=== PATIENT | female | born 1985 | race Caucasian/White ===

== ENCOUNTER 2020-04-06 12:21 | Inpatient (IN) ==
[2020-04-06] MEDS ORDERED: OXYTOCIN 30 UNITS/500 ML BAG IV PRN (12:59)
[2020-04-06] MEDS ORDERED: LABETALOL HCL IV 5 MG/ML 20ML IV STA ×2 (13:00→16:26)
[2020-04-06] MEDS ORDERED: BETAMETH SOD PHOS/ACETATE IA 6 MG/ML IM STA (13:00)
[2020-04-06] MEDS ORDERED: MAG SULFATE 6GM BOLUS FROM BAG IV ONE (13:00)
[2020-04-06 13:24] LABS: Hematocrit (blood only) 31.3 % (37-47); Hemoglobin 10.8 g/dL (12.0-16.0); Mean Corpuscular Hemoglobin 30.9 pg (25-34); Mean Corpuscular Volume 89.7 fL (80-100); Platelet Count 158 K/uL (130-400); Red Blood Count 3.49 M/uL (4.2-5.4); White Blood Count 10.63 K/uL (4.8-10.8)
--- NOTE | 2020-04-06 13:25 | History & Physical Report ---
Date of Service April 06, 2020 Assessment & Plan (1) Preeclampsia: Patient is a 34 yo here for IOL secondary to preeclampsia -GBS -, Bloodtype O+ -Pitocin for contraction augmentation -Patient desires epidural; will consult anaesthesia when contractions become painful -Labetalol 20mg IV now -Magnesium Sulfate 6g IV now -Betamethasone 12mg IV now -Anticipate vaginal delivery. (2) Elderly primigravida, antepartum: History of Present Illness Chief Complaint: Hypertension Primary Care Provider: Ana Courtney DO Patient is a 34 at 36w 3d by LMP 07/26/19 who presents for IOL due to significant hypertension. Patients history has been complicated by preeclampsia for which she has been taking ASA 81mg. Patient currently denies any headache, RUQ pain, visual changes. She did not some ankle swelling over the weekend, but states it is relatively normal currently. She has noted movement. She denies any contractions, fluid loss, or vaginal blood loss. Labs -Blood type: O+ -Antibody screen: Negative -Rubella: Immune -VDRL/RPR: Nonreactive -Gonorrhea: Not detected -Chlamydia: Not detected -HIV: Negative -HbSAg: Negative -GBS: Negative -Glucose tolerance x2: 1 hour GTT 136, -Cell Free DNA Screening: low risk -Maternal Serum AFP: negative Allergies Allergy/AdvReac Type Severity Reaction Status Date / Time Sulfa (Sulfonamide Allergy Unknown RASH - Verified 04/06/20 11:29 Antibiotics) "SULFA DRUGS" Home Medications Home Medications Medication Instructions Recorded Confirmed Type PNV cmb#95-ferrous fumarate-FA 1 tab PO DAILY 04/06/20 04/06/20 History [] aspirin [Aspirin Low Dose] 81 mg PO DAILY 04/06/20 04/06/20 History famotidine 20 mg PO DAILY 04/06/20 04/06/20 History ferrous sulfate [iron] 325 mg PO DAILY 04/06/20 04/06/20 History Patient History Family History (Updated 09/13/19 @ 15:08 by Chana Chandler) Mother Diabetes Father Dyslipidemia Hypertension Social History (Updated 09/13/19 @ 15:23 by Chana Chandler) Preferred Language: Occitan Communication Ability: Effective Digital Developer Required: No Beliefs That Will Affect Care: None marital status: marital status details: William Dhaliwal (36) [phone] Current Living Situation: Spouse Current Living Situation Comment: lives with spouse and dog Other Information That Helps Us Care for You: No Feels Safe at Home: Yes Safety Concerns: Feels Safe At This Time Smoking Status: Never smoker Second Hand Exposure: No ; Hx Alcohol Use: Yes (rarely) Hx Substance Use: No Review of Systems no fever, no chills and no weakness no worsening vision no dizziness no cough and no dyspnea no chest pain, no dyspnea and no palpitations no abdominal pain, no nausea, no vomiting, no constipation and no diarrhea/loose stools no dysuria and no hematuria no headache(s) Physical Exam Constitutional: WD/WN, vitals as above Eyes: PERRL, conjunctivae normal, anicteric sclerae ENMT: external ear and nose normal, oropharynx normal Neck: normal visual inspection Respiratory: normal respiratory effort, lungs clear to auscultation Cardiovascular: Rate/Rhythm: regular rate and regular rhythm Heart Sounds: normal S1 and normal S2; no murmur Extremities: + edema (trace) Gastrointestinal (Abdomen): Inspection/Auscultation: + abdomen distended (Gravid) and normal bowel sounds Percussion/Palpation: abdomen soft; abdomen nontender (NO RUQ pain) Neurologic: patellar DTR's 2+ bilat, sensation intact Psychiatric: A+Ox3, euthymic affect Genitourinary: OB Exam Abdomen: + fundal height (Term), + heart tones, + vertex and + estimated weight (7 lbs) Cervical exam conducted by Dr. Blue. Results & Data Vital Signs (Past 12 Hours) Vital Signs Pulse BP 04/06/20 13:03 86 178/95 H 04/06/20 12:53 84 181/96 H 04/06/20 12:44 90 184/98 H Code Status & VTE Plan VTE Prophylaxis Plan VTE Prophylaxis will be ordered: No Reason for no VTE drug order: Contraindicated Supervising Physician Co-Signing Physician Notes Patient seen and evaluated and agree with the above findings and plan. Admitted for IOL for Preeclampsia with severe features. She is asymptomatic at this time but has severe range BPs which we are treating with IV labetalol. Discussed the recommendation for MgSO4 for prevention of eclampsia. Discussed BMZ for . Patient agreeable to plan. Resident Activity Tracking Resident Involvement: Resident Care Provided Care Provided: OB Delivery
[2020-04-06 13:26] LABS: Mean Corpuscular Hgb Conc 34.5 g/dL (32-36)
[2020-04-06] MEDS: LACTATED RINGER'S 1,000 ML IV PRN ×2 (13:35→23:15)
[2020-04-06 13:36] LABS: Partial Thromboplastin Ratio 0.9; Partial Thromboplastin Time 24.2 Seconds (21.0-31.0); Prothrombin Time 10.1 Seconds (9.0-12.0)
[2020-04-06 13:41] LABS: Est GFR (African American) 132.4; Est GFR (Non-African American) 114.2
[2020-04-06 13:47] LABS: Alanine Aminotransferase 15 U/L (12-78); Aspartate Aminotransferase 11 U/L (15-37)
[2020-04-06] MEDS: OXYTOCIN 30 UNITS/500 ML BAG IV PRN (14:34)
[2020-04-06] MEDS: MAGNESIUM SULFATE / WTR 40 GM/1,000 ML BAG IV SCH (14:43)
[2020-04-06] MEDS ORDERED: IBUPROFEN 600 MG TAB PO PRN (14:48)
[2020-04-06] MEDS ORDERED: ACETAMINOPHEN 325 MG TAB PO PRN (17:15)
[2020-04-06 20:10] LABS: Hemoglobin 11.3 g/dL (12.0-16.0); Mean Corpuscular Hgb Conc 34.2 g/dL (32-36); Mean Corpuscular Volume 90.4 fL (80-100); Mean Platelet Volume 11.3 fL (7.4-10.4); Platelet Count 178 K/uL (130-400); RDW Coefficient of Variation 14.1 % (11.5-14.5); RDW Standard Deviation 46.8 fL (36.4-46.3); Red Blood Count 3.65 M/uL (4.2-5.4); White Blood Count 14.65 K/uL (4.8-10.8)
[2020-04-06 20:40] LABS: Albumin Globulin Ratio 0.7 (0.9-2); Albumin Level 2.8 gm/dl (3.4-5.0); Bilirubin,Total 0.3 mg/dl (0.2-1); Calcium 8.1 mg/dl (8.5-10.1); Creatinine Clr Calc Pharmacy 209.7 ml/min; Est GFR (African American) 131.1; Est GFR (Non-African American) 113.1; Globulin 3.9 gm/dl (2.5-4.0); Magnesium 5.3 mg/dl (1.8-2.4); Potassium 3.5 mmol/L (3.5-5.1); Total Protein 6.7 gm/dl (6.4-8.2)
[2020-04-06] MEDS: LABETALOL HCL 100 MG TAB PO SCH (21:09)
[2020-04-06] MEDS ORDERED: ONDANSETRON INJ 2 MG/ML 2 ML VIAL ONE (23:10)
[2020-04-07] MEDS ORDERED: CALCIUM CARBONATE 500 MG CHEWABLE TAB ONE (01:27)
[2020-04-07] MEDS ORDERED: BUTORPHANOL TARTRATE 1 MG/ML VIAL IV PRN (04:53)
[2020-04-07] MEDS ORDERED: BUTORPHANOL TARTRATE 1 MG/ML VIAL ONE (04:56)
[2020-04-07 06:00] LABS: Hematocrit (blood only) 31.1 % (37-47); Hemoglobin 10.8 g/dL (12.0-16.0); Mean Corpuscular Hemoglobin 31.6 pg (25-34); Mean Corpuscular Volume 90.9 fL (80-100); Mean Platelet Volume 11.1 fL (7.4-10.4); Platelet Count 177 K/uL (130-400); RDW Coefficient of Variation 14.3 % (11.5-14.5); Red Blood Count 3.42 M/uL (4.2-5.4); White Blood Count 14.42 K/uL (4.8-10.8)
[2020-04-07 06:05] LABS: Mean Corpuscular Hgb Conc 34.7 g/dL (32-36)
[2020-04-07 06:20] LABS: Albumin Globulin Ratio 0.8 (0.9-2); Albumin Level 2.8 gm/dl (3.4-5.0); BUN Creatinine Ratio 12.9 (10-20); Bilirubin,Total 0.4 mg/dl (0.2-1); Calcium 7.2 mg/dl (8.5-10.1); Creatinine Clr Calc Pharmacy 192.5 ml/min; Est GFR (African American) 122.8; Globulin 3.7 gm/dl (2.5-4.0); Magnesium Therapeutic L&D Only 6.6 mg/dL (4.0-8.0); Potassium 3.6 mmol/L (3.5-5.1); Total Protein 6.5 gm/dl (6.4-8.2)
--- NOTE | 2020-04-07 06:32 | Labor Progress Brief Note ---
Date of Service April 07, 2020 Subjective Reason For Note: Routine Evaluation Doing well denies PIH symptoms. Mg running Assessment & Plan (1) Preeclampsia: 34yo at 36.3 weeks GA. IOL for preeclampsia with severe features 1. Fetus: Cat 1 2. Labor: Progressing. Continue Pitocin 3. GBS neg 4. PIH: Continue Mg. No signs of worsening disease. BPs mild range. Mg level in recommended range. 5. GDM: Diet controlled. BGs ~130s (2) Gestational diabetes: (3) Elderly primigravida, antepartum: Physical Exam Genitourinary: OB Exam Abdomen: + vertex Manual OB Exam: + cervical dilation 1 cm, + cervical effacement 70% and + station -2 OB Exam Monitor Tracing: + external FHT monitor used, + external uterine monitor used, + category I and + normal FHT variability; no early decelerations present, no late decelerations present and no variable decelerations Results & Data Vital Signs (Past 12 Hours) Vital Signs Temp Pulse Resp BP Pulse Ox 04/07/20 06:23 77 93 04/07/20 06:21 76 138/71 04/07/20 06:18 74 92 04/07/20 06:13 76 91 04/07/20 06:08 69 89 L 04/07/20 06:06 76 94 04/07/20 06:03 73 91 04/07/20 06:00 72 94 04/07/20 05:58 77 89 L 04/07/20 05:53 81 95 04/07/20 05:52 81 18 144/79 H 04/07/20 05:50 83 93 04/07/20 05:48 87 97 04/07/20 05:45 72 93 04/07/20 05:43 75 90 04/07/20 05:39 74 93 04/07/20 05:38 91 H 97 04/07/20 05:33 71 90 04/07/20 05:31 68 92 04/07/20 05:28 73 92 04/07/20 05:24 72 93 04/07/20 05:23 74 91 04/07/20 05:21 67 128/72 04/07/20 05:18 71 93 04/07/20 05:13 75 90 04/07/20 05:08 73 92 04/07/20 05:07 77 94 04/07/20 05:03 76 92 04/07/20 04:59 88 94 04/07/20 04:58 88 97 04/07/20 04:53 94 H 97 04/07/20 04:51 97 H 18 147/76 H 04/07/20 04:48 96 H 96 04/07/20 04:43 94 H 95 04/07/20 04:39 80 94 04/07/20 04:38 79 94 04/07/20 04:33 81 94 04/07/20 04:28 81 95 04/07/20 04:23 78 93 04/07/20 04:22 78 128/84 04/07/20 04:21 77 94 04/07/20 04:18 83 96 04/07/20 04:15 81 93 04/07/20 04:13 81 94 04/07/20 04:08 85 95 04/07/20 04:03 85 95 04/07/20 04:01 85 94 04/07/20 03:58 89 97 04/07/20 03:53 86 18 138/78 96 04/07/20 03:48 86 96 04/07/20 03:43 90 97 04/07/20 03:38 93 H 96 04/07/20 03:33 97 H 97 04/07/20 03:28 102 H 98 04/07/20 03:23 97 H 97 04/07/20 03:21 80 132/78 04/07/20 03:19 79 94 04/07/20 03:18 79 97 04/07/20 03:14 77 93 04/07/20 03:13 79 90 04/07/20 03:08 80 94 04/07/20 03:07 77 92 04/07/20 03:03 79 93 04/07/20 03:02 80 94 04/07/20 02:58 81 93 04/07/20 02:55 78 93 04/07/20 02:53 84 93 04/07/20 02:51 82 129/80 04/07/20 02:50 87 94 04/07/20 02:48 88 96 04/07/20 02:45 36.5 C 18 04/07/20 02:43 90 97 04/07/20 02:38 97 H 98 04/07/20 02:33 88 94 04/07/20 02:29 79 93 04/07/20 02:28 80 93 04/07/20 02:23 77 93 04/07/20 02:22 89 97 04/07/20 02:21 77 126/75 04/07/20 02:18 78 94 04/07/20 02:17 76 95 04/07/20 01:52 74 18 127/70 04/07/20 01:22 81 123/76 04/07/20 00:52 83 18 134/76 04/07/20 00:22 77 105/55 L 04/06/20 23:52 82 18 112/58 L 04/06/20 23:21 82 131/77 04/06/20 23:13 83 136/77 04/06/20 22:51 36.6 C 84 18 137/79 04/06/20 22:22 90 127/77 04/06/20 21:52 83 18 136/82 04/06/20 21:21 84 137/76 04/06/20 20:51 85 18 139/82 04/06/20 20:22 88 141/82 H 04/06/20 19:51 95 H 20 151/91 H 04/06/20 19:21 93 H 143/89 H 04/06/20 18:51 36.6 C 83 18 142/77 H Coding Level of Care Code None Diagnoses Preeclampsia O14.90 Gestational diabetes O24.419 Elderly primigravida, antepartum O09.519
[2020-04-07] MEDS: MAGNESIUM SULFATE / WTR 40 GM/1,000 ML BAG IV SCH (06:50)
--- NOTE | 2020-04-07 08:04 | Labor Progress Brief Note ---
Date of Service April 07, 2020 Subjective Reason For Note: Routine Evaluation Denies PIH symptoms Assessment & Plan (1) Preeclampsia: 34yo at 36.3 weeks GA. IOL for preeclampsia with severe features 1. Fetus: Cat 1 2. Labor: Progressing. Will stop Pitocin and allow patient to have breakfast. Will restart per protocol 3. GBS neg 4. PIH: Continue Mg. No signs of worsening disease. BPs mild range. Mg level pending 5. GDM: Diet controlled. BGs ~130s (2) Gestational diabetes: (3) Elderly primigravida, antepartum: Physical Exam Neurologic: patellar DTR's 2+ bilat, sensation intact Genitourinary: OB Exam Abdomen: + vertex Manual OB Exam: + cervical dilation (1.5), + cervical effacement 80%, + station -2 and + amniotic fluid clear OB Exam Monitor Tracing: + external FHT monitor used, + external uterine monitor used, + category I and + normal FHT variability; no early decelerations present, no late decelerations present and no variable decelerations Results & Data Vital Signs (Past 12 Hours) Vital Signs Temp Pulse Resp BP Pulse Ox 04/07/20 07:53 89 96 04/07/20 07:51 81 144/81 H 04/07/20 07:48 85 96 04/07/20 07:43 87 97 04/07/20 07:38 87 96 04/07/20 07:36 86 94 04/07/20 07:33 91 H 97 04/07/20 07:28 95 H 97 04/07/20 07:24 82 94 04/07/20 07:23 81 95 04/07/20 07:21 77 150/83 H 04/07/20 07:18 88 95 04/07/20 07:13 90 97 04/07/20 07:12 87 94 04/07/20 07:08 89 97 04/07/20 07:03 89 96 04/07/20 07:00 79 93 04/07/20 06:58 86 96 04/07/20 06:55 80 94 04/07/20 06:53 82 96 04/07/20 06:51 84 134/80 04/07/20 06:50 80 93 04/07/20 06:48 89 96 04/07/20 06:43 74 92 04/07/20 06:42 73 92 04/07/20 06:38 74 89 L 04/07/20 06:34 71 91 04/07/20 06:33 79 96 04/07/20 06:28 83 96 04/07/20 06:23 77 93 04/07/20 06:21 76 138/71 04/07/20 06:18 74 92 04/07/20 06:13 76 91 04/07/20 06:08 69 89 L 04/07/20 06:06 76 94 04/07/20 06:03 73 91 04/07/20 06:00 72 94 04/07/20 05:58 77 89 L 04/07/20 05:53 81 95 04/07/20 05:52 81 18 144/79 H 04/07/20 05:50 83 93 04/07/20 05:48 87 97 04/07/20 05:45 72 93 04/07/20 05:43 75 90 04/07/20 05:39 74 93 04/07/20 05:38 91 H 97 04/07/20 05:33 71 90 04/07/20 05:31 68 92 04/07/20 05:28 73 92 04/07/20 05:24 72 93 04/07/20 05:23 74 91 04/07/20 05:21 67 128/72 04/07/20 05:18 71 93 04/07/20 05:13 75 90 04/07/20 05:08 73 92 04/07/20 05:07 77 94 04/07/20 05:03 76 92 04/07/20 04:59 88 94 04/07/20 04:58 88 97 04/07/20 04:53 94 H 97 04/07/20 04:51 97 H 18 147/76 H 04/07/20 04:48 96 H 96 04/07/20 04:43 94 H 95 04/07/20 04:39 80 94 04/07/20 04:38 79 94 04/07/20 04:33 81 94 04/07/20 04:28 81 95 04/07/20 04:23 78 93 04/07/20 04:22 78 128/84 04/07/20 04:21 77 94 04/07/20 04:18 83 96 04/07/20 04:15 81 93 04/07/20 04:13 81 94 04/07/20 04:08 85 95 04/07/20 04:03 85 95 04/07/20 04:01 85 94 04/07/20 03:58 89 97 04/07/20 03:53 86 18 138/78 96 04/07/20 03:48 86 96 04/07/20 03:43 90 97 04/07/20 03:38 93 H 96 04/07/20 03:33 97 H 97 04/07/20 03:28 102 H 98 04/07/20 03:23 97 H 97 04/07/20 03:21 80 132/78 04/07/20 03:19 79 94 04/07/20 03:18 79 97 04/07/20 03:14 77 93 04/07/20 03:13 79 90 04/07/20 03:08 80 94 04/07/20 03:07 77 92 04/07/20 03:03 79 93 04/07/20 03:02 80 94 04/07/20 02:58 81 93 04/07/20 02:55 78 93 04/07/20 02:53 84 93 04/07/20 02:51 82 129/80 04/07/20 02:50 87 94 04/07/20 02:48 88 96 04/07/20 02:45 36.5 C 18 04/07/20 02:43 90 97 04/07/20 02:38 97 H 98 04/07/20 02:33 88 94 04/07/20 02:29 79 93 04/07/20 02:28 80 93 04/07/20 02:23 77 93 04/07/20 02:22 89 97 04/07/20 02:21 77 126/75 04/07/20 02:18 78 94 04/07/20 02:17 76 95 04/07/20 01:52 74 18 127/70 04/07/20 01:22 81 123/76 04/07/20 00:52 83 18 134/76 04/07/20 00:22 77 105/55 L 04/06/20 23:52 82 18 112/58 L 04/06/20 23:21 82 131/77 04/06/20 23:13 83 136/77 04/06/20 22:51 36.6 C 84 18 137/79 06/08/20 22:22 90 127/77 04/06/20 21:52 83 18 136/82 04/06/20 21:21 84 137/76 04/06/20 20:51 85 18 139/82 04/06/20 20:22 88 141/82 H Coding Level of Care Code None Diagnoses Preeclampsia O14.90 Gestational diabetes O24.419 Elderly primigravida, antepartum O09.519
[2020-04-07] MEDS: FAMOTIDINE 20 MG in SYRINGE 3 ML IV SCH ×2 (08:37→22:42)
[2020-04-07] MEDS: LABETALOL HCL 100 MG TAB PO SCH ×2 (08:37→22:41)
[2020-04-07] MEDS: ONDANSETRON INJ 2 MG/ML 2 ML VIAL IV PRN (09:34)
[2020-04-07] MEDS: CALCIUM CARBONATE 500 MG CHEWABLE TAB PO PRN (09:34)
[2020-04-07] MEDS ORDERED: miSOPROStoL 50 MCG TAB PO STA (10:30)
[2020-04-07] MEDS: LACTATED RINGER'S 1,000 ML IV PRN ×3 (12:06→23:22)
--- NOTE | 2020-04-07 12:06 | Obstetrical Progress Note ---
Date of Service April 07, 2020 Assessment & Plan (1) Preeclampsia: IOL - [place] remains unfavorable, Pit has seemed minimally effective. Nguyen was not previously tolerated by patient who is now ruptured anyway, but toco now allows for cytotec. Ordered this morning. Reassess after 4 hr to see if ready for retrial of pitocin. PreE - severe. Continue Mag, seizure precautions. DTR 2+ currently and mag levels being checked. GDM - Was not on insulin. Subjective Delayed entry due to other patient care responsibilities. Feeling mild contractions. No LINARES, RUQ pain or vis chng. Fatigue c/w Magnesium infusion. Good FM. LOF clear. No VB. Will want epiural eventually. Physical Exam Physical Exam: FHT Cat 1 [place] Q9 Pit @ 4 (has previously reached 30 mu/min x2 and was stopped for breakfast break per Dr. Blue) Cvx 1.5/90/-2 LOF clear Results & Data Vital Signs (Past 12 Hours) Vital Signs Temp Pulse Resp BP Pulse Ox 04/07/20 11:45 95 H 96 04/07/20 11:44 90 157/80 H 04/07/20 11:40 98.1 F 88 19 92 04/07/20 11:35 80 92 04/07/20 11:30 96 H 97 04/07/20 11:25 92 H 96 04/07/20 11:20 83 91 04/07/20 11:19 81 88 L 04/07/20 11:15 85 91 04/07/20 11:12 82 91 04/07/20 11:10 87 97 04/07/20 11:05 77 94 04/07/20 11:03 84 89 L 04/07/20 11:00 89 96 04/07/20 10:55 84 91 04/07/20 10:51 87 91 04/07/20 10:50 88 94 04/07/20 10:45 94 H 98 04/07/20 10:44 84 146/85 H 04/07/20 10:40 83 95 04/07/20 10:35 89 96 04/07/20 10:30 98 H 97 04/07/20 10:25 95 H 97 04/07/20 10:20 94 H 96 04/07/20 10:15 88 97 04/07/20 10:10 89 97 04/07/20 10:05 89 94 06/09/20 10:04 89 94 04/07/20 10:00 80 96 04/07/20 09:58 79 92 04/07/20 09:55 87 95 04/07/20 09:53 81 94 04/07/20 09:50 88 97 04/07/20 09:45 89 98 04/07/20 09:44 93 H 144/80 H 04/07/20 09:40 90 98 04/07/20 09:30 98.1 F 16 04/07/20 08:43 94 H 150/80 H 04/07/20 07:53 89 96 04/07/20 07:51 81 144/81 H 04/07/20 07:48 85 96 04/07/20 07:43 87 97 04/07/20 07:38 87 96 04/07/20 07:36 86 94 04/07/20 07:33 91 H 97 04/07/20 07:28 95 H 97 04/07/20 07:24 82 94 04/07/20 07:23 81 95 04/07/20 07:21 77 150/83 H 04/07/20 07:18 88 95 04/07/20 07:13 90 97 04/07/20 07:12 87 94 04/07/20 07:08 89 97 04/07/20 07:03 89 96 04/07/20 07:00 79 93 04/07/20 06:58 86 96 04/07/20 06:55 80 94 04/07/20 06:53 82 96 04/07/20 06:51 84 134/80 04/07/20 06:50 80 93 04/07/20 06:48 89 96 04/07/20 06:43 74 92 04/07/20 06:42 73 92 04/07/20 06:38 74 89 L 04/07/20 06:34 71 91 04/07/20 06:33 79 96 04/07/20 06:28 83 96 04/07/20 06:23 77 93 04/07/20 06:21 76 138/71 04/07/20 06:18 74 92 04/07/20 06:13 76 91 04/07/20 06:08 69 89 L 04/07/20 06:06 76 94 04/07/20 06:03 73 91 04/07/20 06:00 72 94 04/07/20 05:58 77 89 L 04/07/20 05:53 81 95 04/07/20 05:52 81 18 144/79 H 04/07/20 05:50 83 93 04/07/20 05:48 87 97 04/07/20 05:45 72 93 04/07/20 05:43 75 90 04/07/20 05:39 74 93 04/07/20 05:38 91 H 97 04/07/20 05:33 71 90 04/07/20 05:31 68 92 04/07/20 05:28 73 92 04/07/20 05:24 72 93 04/07/20 05:23 74 91 04/07/20 05:21 67 128/72 04/07/20 05:18 71 93 04/07/20 05:13 75 90 04/07/20 05:08 73 92 04/07/20 05:07 77 94 04/07/20 05:03 76 92 04/07/20 04:59 88 94 04/07/20 04:58 88 97 04/07/20 04:53 94 H 97 04/07/20 04:51 97 H 18 147/76 H 04/07/20 04:48 96 H 96 04/07/20 04:43 94 H 95 04/07/20 04:39 80 94 04/07/20 04:38 79 94 04/07/20 04:33 81 94 04/07/20 04:28 81 95 04/07/20 04:23 78 93 04/07/20 04:22 78 128/84 04/07/20 04:21 77 94 04/07/20 04:18 83 96 04/07/20 04:15 81 93 04/07/20 04:13 81 94 04/07/20 04:08 85 95 04/07/20 04:03 85 95 04/07/20 04:01 85 94 04/07/20 03:58 89 97 04/07/20 03:53 86 18 138/78 96 04/07/20 03:48 86 96 04/07/20 03:43 90 97 04/07/20 03:38 93 H 96 04/07/20 03:33 97 H 97 04/07/20 03:28 102 H 98 04/07/20 03:23 97 H 97 04/07/20 03:21 80 132/78 04/07/20 03:19 79 94 04/07/20 03:18 79 97 04/07/20 03:14 77 93 04/07/20 03:13 79 90 04/07/20 03:08 80 94 04/07/20 03:07 77 92 04/07/20 03:03 79 93 04/07/20 03:02 80 94 04/07/20 02:58 81 93 04/07/20 02:55 78 93 04/07/20 02:53 84 93 04/07/20 02:51 82 129/80 04/07/20 02:50 87 94 04/07/20 02:48 88 96 04/07/20 02:45 97.7 F 18 04/07/20 02:43 90 97 04/07/20 02:38 97 H 98 04/07/20 02:33 88 94 04/07/20 02:29 79 93 04/07/20 02:28 80 93 04/07/20 02:23 77 93 04/07/20 02:22 89 97 04/07/20 02:21 77 126/75 04/07/20 02:18 78 94 04/07/20 02:17 76 95 04/07/20 01:52 74 18 127/70 04/07/20 01:22 81 123/76 04/07/20 00:52 83 18 134/76 04/07/20 00:22 77 105/55 L PG Care Time/CCT Total # of Minutes Spent Total Time Spent with Patient: Total time spent is greater than 50% in coordination of care (as documented) at patient's floor/unit and/or counseling patient: Coding Level of Care Code None Diagnoses Preeclampsia O14.90
[2020-04-07] MEDS: OXYTOCIN 30 UNITS/500 ML BAG IV PRN (16:03)
[2020-04-07] MEDS ORDERED: ePHEDrine sulfate 50 MG/ML AMP ONE (16:33)
[2020-04-07] MEDS ORDERED: fentaNYL citrate 100 MCG/2 ML VIAL ONE (16:34)
[2020-04-07] MEDS ORDERED: BUPIVACAINE 0.25% 30 ML VIAL ONE (16:34)
[2020-04-07] MEDS ORDERED: fentaNYL 2MCG/ML ROPIV 1.25MG/ML 100 ML BAG EPI ONE (16:35)
[2020-04-07 17:23] LABS: Hematocrit (blood only) 30.2 % (37-47); Hemoglobin 10.1 g/dL (12.0-16.0); Mean Corpuscular Hemoglobin 30.4 pg (25-34); Mean Corpuscular Hgb Conc 33.4 g/dL (32-36); Mean Platelet Volume 11.2 fL (7.4-10.4); Platelet Count 185 K/uL (130-400); RDW Coefficient of Variation 14.2 % (11.5-14.5); RDW Standard Deviation 47.1 fL (36.4-46.3); Red Blood Count 3.32 M/uL (4.2-5.4); White Blood Count 18.28 K/uL (4.8-10.8)
[2020-04-07 17:59] LABS: Albumin Globulin Ratio 0.8 (0.9-2); Albumin Level 2.7 gm/dl (3.4-5.0); Bilirubin,Total 0.4 mg/dl (0.2-1); Calcium 7.1 mg/dl (8.5-10.1); Creatinine Clr Calc Pharmacy 113.4 ml/min; Est GFR (African American) 120.8; Est GFR (Non-African American) 104.2; Globulin 3.4 gm/dl (2.5-4.0); Magnesium Therapeutic L&D Only 7.5 mg/dL (4.0-8.0); Potassium 3.4 mmol/L (3.5-5.1); Total Protein 6.1 gm/dl (6.4-8.2)
[2020-04-07] MEDS ORDERED: DiphenhydrAMINE HCL 50 MG/ML VIAL IV PRN (18:24)
[2020-04-07] MEDS ORDERED: ONDANSETRON INJ 2 MG/ML 2 ML VIAL IV PRN (18:24)
[2020-04-07] MEDS ORDERED: NALOXONE HCL 0.4 MG/1 ML VIAL/CARP IV PRN (18:24)
[2020-04-07] MEDS ORDERED: ePHEDrine sulfate 50 MG/ML AMP IV PRN (18:24)
[2020-04-07] MEDS ORDERED: NALOXONE HCL 1 MG in SODIUM CHLORIDE 0.9% 1000ML 1,000 ML IV PRN (18:24)
[2020-04-07] MEDS ORDERED: NALBUPHINE HCL INJ 10 MG/ML AMP IV PRN (18:24)
--- NOTE | 2020-04-07 18:24 | Anesthesiology Consultation ---
Date of Service April 07, 2020 Assessment & Plan Chart Review Chart Review: Acceptable Risk for Surgery and Patient NOT seen in Pre Admission Testing Consults Requested none ASA ASA2 Proposed Anesthesia Anesthesia Type: Labor Epidural Risk / Benefits Reviewed With: PT / POA / Parent / Guardian, Accepts Plan and Informed Consent Obtained History Height/Weight Height: 5 ft 2 in Weight: 95.708 kg Allergies Allergy/AdvReac Type Severity Reaction Status Date / Time Sulfa (Sulfonamide Allergy Unknown RASH - Verified 04/06/20 11:29 Antibiotics) "SULFA DRUGS" Medications Home Medications Medication Instructions Recorded Confirmed Last Taken PNV cmb#95-ferrous fumarate-FA 1 tab PO DAILY 04/06/20 04/06/20 04/05/20 21:00 [] aspirin [Aspirin Low Dose] 81 mg PO DAILY 04/06/20 04/06/20 04/05/20 21:00 famotidine 20 mg PO DAILY 04/06/20 04/06/20 Unknown ferrous sulfate [iron] 325 mg PO DAILY 04/06/20 04/06/20 04/05/20 09:00 Active Medications Generic Name Dose Route Start Last Admin Trade Name Freq PRN Reason Stop Dose Admin Acetaminophen 650 mg 04/06/20 17:15 04/06/20 17:30 Tylenol PO 05/06/20 17:14 650 mg Q4H PRN Administration Headache or Pain Calcium Carbonate 500 mg 04/07/20 01:20 04/07/20 09:34 Tums PO 05/07/20 01:19 500 mg Q4 PRN Administration Indigestion Lactated Ringer's 1,000 mls @ 125 mls/hr 04/06/20 12:59 04/07/20 18:23 Lr IV 04/08/20 12:58 999 mls/hr .Q8H PRN Infusion L&D Protocol Protocol Magnesium Sulfate 40 gm in 1,000 mls @ 50 mls/hr 04/06/20 13:00 04/07/20 07:02 Magnesium Sulfate / Wtr IV 05/06/20 12:59 50 mls/hr .Q20H YAHIR Infusion Oxytocin 30 units in 500 mls @ 9 mls/hr 04/06/20 14:23 04/07/20 18:07 Pitocin IV 04/08/20 14:22 0.54 units/hr .Q24H PRN 9 mls/hr Labor Induction/Augmentation Titration Protocol 0.54 UNITS/HR Famotidine 20 mg/ Syringe 5 mls @ 2.5 mls/min 04/07/20 09:00 04/07/20 08:37 IV 05/07/20 08:59 2.5 mls/min BID YAHIR Administration Labetalol HCl 200 mg 04/06/20 21:00 04/07/20 08:37 Normodyne PO 05/06/20 20:59 200 mg BID YAHIR Administration Ondansetron HCl 4 mg 04/06/20 23:09 04/07/20 09:34 Zofran IV 05/06/20 23:08 4 mg Q6H PRN Administration Nausea NPO Date Last Intake of Fluids: 04/07/20 Time Last Intake of Fluids: 08:00 Date Last Intake of Solids: 04/06/20 Time Last Intake of Solids: 06:00 Exercise / Class Metabolic Activity II 4-5 Yardwork/Stairs/Walk up hill Past Family History Family History (Updated 09/13/19 @ 15:08 by Chana Chandler) Mother Diabetes Father Dyslipidemia Hypertension Past Anesthesia History No Hx of Anesthesia Complications and No Family Hx of Anesthesia Complications History of PONV No Hx of PONV and No Hx of Motion Sickness Social History Smoking Status: Never smoker Hx Alcohol Use: Yes (rarely) alcohol intake frequency: holidays/special occasions only Hx Substance Use: No substance use type: does not use Physical Exam Vital Signs Last Vital Signs Temp 36.8 C 04/07/20 17:10 Pulse 69 04/07/20 18:17 Resp 18 04/07/20 17:10 BP 95/53 L 04/07/20 18:08 Pulse Ox 85 L 04/07/20 18:17 ENMT Mouth: no dentition abnormality Thyromental Distance: > or= 3.5 Finger Breadths Mallampati Class: II Neck normal visual inspection Respiratory normal respiratory effort Auscultation: lungs clear to auscultation bilaterally Cardiovascular Rate/Rhythm: regular rate and regular rhythm Psychiatric Orientation: alert Testing Laboratory Results 04/07/20 17:07 04/07/20 17:07 PT 10.1 Seconds (9.0-12.0) 04/06/20 13:11 INR 1.0 (0.9-1.1) 04/06/20 13:11 APTT 24.2 Seconds (21.0-31.0) 04/06/20 13:11 Blood Type O Positive 04/06/20 13:11 Antibody Screen NEGATIVE 04/06/20 13:11
--- NOTE | 2020-04-07 20:01 | Labor Progress Brief Note ---
Date of Service April 07, 2020 Subjective Comfortable with epidural. No LINARES, RUQ pain or vis change, resting quietly. Assessment & Plan (1) Preeclampsia: Patient on Mag, IOL in progress. Very slow start, but after cytotec ripening she is now finally getting some progress with pitocin. Patient aware this is a long process for her which has its risks, including infection, but right now both and maternal status allow to continue induction and she would like to do so. BP has been normal to low-HTN range so will hold tonight's labetalol dose for now to avoid relative hypotension. She did get symptomatic with the dip in her BP after her epidural. Physical Exam Physical Exam: Cvx 4/90/-2 FHT Cat 1 Pit @ 15 [place] Q2-4 irreg Mom afebrile. DTR 2+ and recent Mag level noted. Results & Data Vital Signs (Past 12 Hours) Vital Signs Temp Pulse Resp BP Pulse Ox 04/07/20 19:54 84 140/71 04/07/20 19:52 84 94 04/07/20 19:47 92 H 94 04/07/20 19:42 86 94 04/07/20 19:39 86 139/73 04/07/20 19:37 84 92 04/07/20 19:32 92 H 96 04/07/20 19:27 85 93 04/07/20 19:23 86 126/69 04/07/20 19:22 86 93 04/07/20 19:17 95 H 98 04/07/20 19:12 92 H 97 04/07/20 19:08 97.9 F 81 18 122/69 04/07/20 19:07 82 93 04/07/20 19:02 89 98 04/07/20 18:57 91 H 96 04/07/20 18:53 86 137/78 04/07/20 18:52 86 94 04/07/20 18:47 83 92 04/07/20 18:42 81 94 04/07/20 18:37 80 126/69 94 04/07/20 18:32 86 97 04/07/20 18:27 90 98 04/07/20 18:25 79 89 L 04/07/20 18:22 95 H 99 04/07/20 18:17 69 85 L 04/07/20 18:12 74 91 04/07/20 18:08 74 95/53 L 04/07/20 18:07 75 94 04/07/20 18:03 73 97/54 L 04/07/20 18:02 75 94 04/07/20 18:00 71 87 L 04/07/20 17:57 68 95/52 L 93 04/07/20 17:52 67 94/53 L 92 04/07/20 17:51 69 88 L 04/07/20 17:50 72 97/55 L 04/07/20 17:48 73 105/57 L 04/07/20 17:47 78 94 04/07/20 17:46 79 95/52 L 04/07/20 17:44 71 94/55 L 04/07/20 17:42 77 101/57 L 93 04/07/20 17:40 87 134/78 04/07/20 17:38 88 132/78 04/07/20 17:37 89 97 04/07/20 17:36 87 144/82 H 04/07/20 17:34 88 140/80 04/07/20 17:32 88 96 04/07/20 17:27 89 96 04/07/20 17:22 90 96 04/07/20 17:17 94 H 98 04/07/20 17:12 97 H 97 04/07/20 17:10 98.2 F 18 04/07/20 17:07 95 H 96 04/07/20 17:02 91 H 95 04/07/20 16:57 86 95 04/07/20 16:52 90 97 04/07/20 16:47 88 96 04/07/20 16:45 88 145/84 H 04/07/20 16:42 91 H 97 04/07/20 16:37 95 H 98 04/07/20 16:31 84 97 04/07/20 16:26 89 95 04/07/20 16:21 90 95 04/07/20 16:16 91 H 96 04/07/20 16:11 90 97 04/07/20 16:06 87 95 04/07/20 16:01 84 95 04/07/20 15:56 87 94 04/07/20 15:51 96 H 98 04/07/20 15:46 89 94 04/07/20 15:44 80 148/76 H 04/07/20 15:41 80 92 04/07/20 15:36 83 96 04/07/20 14:44 90 147/77 H 04/07/20 14:30 97.7 F 18 04/07/20 13:44 82 146/76 H 04/07/20 12:44 78 135/66 04/07/20 11:45 95 H 96 04/07/20 11:44 90 157/80 H 04/07/20 11:40 98.1 F 88 19 92 04/07/20 11:35 80 92 04/07/20 11:30 96 H 97 04/07/20 11:25 92 H 96 04/07/20 11:20 83 91 04/07/20 11:19 81 88 L 04/07/20 11:15 85 91 04/07/20 11:12 82 91 04/07/20 11:10 87 97 04/07/20 11:05 77 94 04/07/20 11:03 84 89 L 04/07/20 11:00 89 96 04/07/20 10:55 84 91 04/07/20 10:51 87 91 04/07/20 10:50 88 94 04/07/20 10:45 94 H 98 04/07/20 10:44 84 146/85 H 04/07/20 10:40 83 95 04/07/20 10:35 89 96 04/07/20 10:30 98 H 97 04/07/20 10:25 95 H 97 04/07/20 10:20 94 H 96 04/07/20 10:15 88 97 04/07/20 10:10 89 97 04/07/20 10:05 89 94 04/07/20 10:04 89 94 04/07/20 10:00 80 96 04/07/20 09:58 79 92 04/07/20 09:55 87 95 04/07/20 09:53 81 94 04/07/20 09:50 88 97 04/07/20 09:45 89 98 04/07/20 09:44 93 H 144/80 H 04/07/20 09:40 90 98 04/07/20 09:30 98.1 F 16 04/07/20 08:43 94 H 150/80 H Coding Level of Care Code None Diagnoses Preeclampsia O14.90
[2020-04-07] MEDS: fentaNYL 2MCG/ML ROPIV 1.25MG/ML 100 ML BAG EPI PRN (23:23)
[2020-04-08] MEDS: ONDANSETRON INJ 2 MG/ML 2 ML VIAL IV PRN (00:44)
--- NOTE | 2020-04-08 01:48 | Labor Progress Brief Note ---
Date of Service April 08, 2020 Subjective Patient noted by RN to be losing reflexes when they had been brisk even on magnesium previously. FHT were also minimal variability. Stat lab ordered and Mag turned down to 1g/hr. Lab was phoned at 30min when results not in yet; they called back shortly thereafter with critical mag value 9.44. Patient informed and Mag stopped. She is talking, using her hands to hold her oxygen mask off her face and ask if she still has to wear it, and moving in bed. She has no LINARES, SOB, CP, vision change or RUQ pain. Feels contractions but they're tolerable. Assessment & Plan (1) Preeclampsia: Severe preeclampsia. Concern for NIEVES and magnesium toxicity secondary to decreasing mag clearance. Magnesium stopped, will recheck level in 2 hours. Discussed option of moving to but patient is making progress and wishes to continue for now. Will check renal / hepatic function and coags now given change in urine. Physical Exam Physical Exam: Vitals reviewed - BP elevated but also taken in the midst of stressful conversation with patient so will monitor for repeats before treating. Magnesium and pitocin both stopped for now. Gen: awake, responsive, spontaneous speech at normal rate, moving in bed and using her hands/arms. Resp: 14 by my count, nondistressed. Face mask O2 on, patient holding mask off face and encouraged to wear normally. Abd: Gravid, NT. Cvx: 6/100/-1 with some molding : Nguyen with dark sanguineous urine. Per RN this was clear 1 hour ago. Ext: Puffy, 2+ edema, and 0 to 1+ (just barely visible) DTR at patellae. Results & Data Vital Signs (Past 12 Hours) Vital Signs Temp Pulse Resp BP Pulse Ox 04/08/20 01:40 87 170/97 H 04/08/20 01:37 89 100 04/08/20 01:32 82 100 04/08/20 01:27 81 100 04/08/20 01:26 81 160/76 H 04/08/20 01:22 85 100 04/08/20 01:17 81 100 04/08/20 01:12 96 H 100 04/08/20 01:09 80 174/81 H 04/08/20 01:07 78 100 04/08/20 01:02 90 100 04/08/20 00:57 85 100 04/08/20 00:56 98.8 F 78 18 150/75 H 04/08/20 00:52 79 100 04/08/20 00:47 81 100 04/08/20 00:42 85 95 04/08/20 00:38 88 157/77 H 04/08/20 00:37 92 H 97 04/08/20 00:32 85 97 04/08/20 00:27 81 97 04/08/20 00:22 88 98 04/08/20 00:17 88 97 04/08/20 00:12 83 92 04/08/20 00:08 77 136/71 04/08/20 00:07 77 95 04/08/20 00:02 83 97 04/07/20 23:57 88 98 04/07/20 23:53 75 18 145/70 H 04/07/20 23:52 77 95 04/07/20 23:47 74 93 04/07/20 23:42 90 98 04/07/20 23:39 97 H 129/68 04/07/20 23:37 94 H 97 04/07/20 23:32 85 97 04/07/20 23:27 88 97 04/07/20 23:25 83 148/73 H 04/07/20 23:22 84 93 04/07/20 23:17 81 91 04/07/20 23:12 94 H 97 04/07/20 23:09 84 151/76 H 04/07/20 23:07 87 93 04/07/20 23:04 81 89 L 04/07/20 23:02 88 93 04/07/20 23:00 18 04/07/20 22:57 85 91 04/07/20 22:54 98.2 F 86 18 145/78 H 04/07/20 22:52 86 92 04/07/20 22:47 84 92 04/07/20 22:42 87 93 04/07/20 22:38 85 142/72 H 04/07/20 22:37 85 92 04/07/20 22:32 90 93 04/07/20 22:27 88 93 04/07/20 22:24 87 141/71 H 04/07/20 22:22 90 93 04/07/20 22:17 86 93 04/07/20 22:12 86 93 04/07/20 22:08 84 138/72 04/07/20 22:07 83 95 04/07/20 22:02 94 H 97 04/07/20 21:57 94 H 98 04/07/20 21:53 92 H 18 139/76 04/07/20 21:52 94 H 98 04/07/20 21:47 93 H 98 04/07/20 21:42 84 95 04/07/20 21:39 81 126/70 04/07/20 21:37 85 94 04/07/20 21:32 85 97 04/07/20 21:27 79 92 04/07/20 21:23 82 126/59 L 04/07/20 21:22 84 95 04/07/20 21:17 83 93 04/07/20 21:12 82 94 04/07/20 21:08 91 H 126/66 04/07/20 21:07 86 93 04/07/20 21:02 79 95 04/07/20 20:57 79 92 04/07/20 20:53 97.7 F 80 18 124/65 04/07/20 20:52 81 96 04/07/20 20:47 79 93 04/07/20 20:42 82 94 04/07/20 20:38 80 119/65 04/07/20 20:37 81 92 04/07/20 20:32 78 94 04/07/20 20:27 85 96 04/07/20 20:24 95 H 132/70 04/07/20 20:22 92 H 97 04/07/20 20:17 84 95 04/07/20 20:12 85 96 04/07/20 20:08 90 18 126/68 04/07/20 20:07 88 96 04/07/20 20:02 90 96 04/07/20 19:57 94 H 97 04/07/20 19:54 84 140/71 04/07/20 19:52 84 94 04/07/20 19:47 92 H 94 04/07/20 19:42 86 94 04/07/20 19:39 86 139/73 04/07/20 19:37 84 92 04/07/20 19:32 92 H 96 04/07/20 19:27 85 93 04/07/20 19:23 86 126/69 04/07/20 19:22 86 93 04/07/20 19:17 95 H 98 04/07/20 19:12 92 H 97 04/07/20 19:08 97.9 F 81 18 122/69 04/07/20 19:07 82 93 04/07/20 19:02 89 98 04/07/20 18:57 91 H 96 04/07/20 18:53 86 137/78 04/07/20 18:52 86 94 04/07/20 18:47 83 92 04/07/20 18:42 81 94 04/07/20 18:37 80 126/69 94 04/07/20 18:32 86 97 04/07/20 18:27 90 98 04/07/20 18:25 79 89 L 04/07/20 18:22 95 H 99 04/07/20 18:17 69 85 L 04/07/20 18:12 74 91 04/07/20 18:08 74 95/53 L 04/07/20 18:07 75 94 04/07/20 18:03 73 97/54 L 04/07/20 18:02 75 94 04/07/20 18:00 71 87 L 04/07/20 17:57 68 95/52 L 93 04/07/20 17:52 67 94/53 L 92 04/07/20 17:51 69 88 L 04/07/20 17:50 72 97/55 L 04/07/20 17:48 73 105/57 L 04/07/20 17:47 78 94 04/07/20 17:46 79 95/52 L 04/07/20 17:44 71 94/55 L 04/07/20 17:42 77 101/57 L 93 04/07/20 17:40 87 134/78 04/07/20 17:38 88 132/78 04/07/20 17:37 89 97 04/07/20 17:36 87 144/82 H 04/07/20 17:34 88 140/80 04/07/20 17:32 88 96 04/07/20 17:27 89 96 04/07/20 17:22 90 96 04/07/20 17:17 94 H 98 04/07/20 17:12 97 H 97 04/07/20 17:10 98.2 F 18 04/07/20 17:07 95 H 96 04/07/20 17:02 91 H 95 04/07/20 16:57 86 95 04/07/20 16:52 90 97 04/07/20 16:47 88 96 04/07/20 16:45 88 145/84 H 04/07/20 16:42 91 H 97 04/07/20 16:37 95 H 98 04/07/20 16:31 84 97 04/07/20 16:26 89 95 04/07/20 16:21 90 95 04/07/20 16:16 91 H 96 04/07/20 16:11 90 97 04/07/20 16:06 87 95 04/07/20 16:01 84 95 04/07/20 15:56 87 94 04/07/20 15:51 96 H 98 04/07/20 15:46 89 94 04/07/20 15:44 80 148/76 H 04/07/20 15:41 80 92 04/07/20 15:36 83 96 04/07/20 14:44 90 147/77 H 04/07/20 14:30 97.7 F 18 04/07/20 13:44 82 146/76 H Coding Level of Care Code None Diagnoses Preeclampsia O14.90
[2020-04-08 02:13] LABS: Hematocrit (blood only) 30.7 % (37-47); Hemoglobin 10.6 g/dL (12.0-16.0); Mean Corpuscular Hemoglobin 31.4 pg (25-34); Mean Corpuscular Volume 90.8 fL (80-100); Mean Platelet Volume 10.7 fL (7.4-10.4); Platelet Count 168 K/uL (130-400); RDW Coefficient of Variation 14.4 % (11.5-14.5); RDW Standard Deviation 47.3 fL (36.4-46.3); Red Blood Count 3.38 M/uL (4.2-5.4)
[2020-04-08 02:28] LABS: Mean Corpuscular Hgb Conc 34.5 g/dL (32-36)
[2020-04-08 02:32] LABS: Alanine Aminotransferase 13 U/L (12-78); Albumin Level 2.7 gm/dl (3.4-5.0); Aspartate Aminotransferase 12 U/L (15-37); BUN Creatinine Ratio 11.5 (10-20); Bilirubin Direct < 0.1 mg/dl (0-0.2); Blood Urea Nitrogen 10 mg/dl (7-18); Calcium 7.2 mg/dl (8.5-10.1); Carbon Dioxide 18 mmol/L (21-32); Chloride 103 mmol/L (98-107); Creatinine Clr Calc Pharmacy 94.3 ml/min; Est GFR (African American) 96.6; Est GFR (Non-African American) 83.4; Glucose 118 mg/dl (70-99); Potassium 3.2 mmol/L (3.5-5.1); Sodium 132 mmol/L (136-145)
[2020-04-08 02:35] LABS: Albumin Globulin Ratio 0.8 (0.9-2); Alkaline Phosphatase 103 U/L (45-117); Bilirubin,Total 0.4 mg/dl (0.2-1); Globulin 3.4 gm/dl (2.5-4.0); Total Protein 6.1 gm/dl (6.4-8.2)
[2020-04-08] MEDS: fentaNYL 2MCG/ML ROPIV 1.25MG/ML 100 ML BAG EPI PRN ×2 (02:35→08:15)
[2020-04-08 02:38] LABS: Fibrinogen 506 mg/dl (184-400); INR 0.9 (0.9-1.1); Partial Thromboplastin Ratio 0.8; Prothrombin Time 9.3 Seconds (9.0-12.0)
[2020-04-08] MEDS ORDERED: BUPIVACAINE 0.25% 30 ML VIAL ONE (03:53)
--- NOTE | 2020-04-08 04:05 | Communication Note ---
Date of Service: April 08, 2020 Called by RN for increased pain. Patient now 6cm cervical dilation. On arrival, patient noted that the epidural had lost effectiveness over the last hour or two. No sensory level noted to ice. On examination of back, the tape had come up a bit and catheter had migrated to 6.5cm at the skin. I offered to replace the epidural catheter for the patient and she agreed. Recent CBC checked and platelets still >150. Epidural replaced 1 interspinous level higher than previous block. Easy placement with sterile technique. NATACHA@6cm, catheter secured @10cm. Dosed with test dose of 3cc 1.5% Lido+epi 1:200k followed by 10cc of 0.125% marcaine. Patient experienced good pain relief and tolerated the procedure well. Vitals and FHT stable throughout. Epidural PCEA restarted at previous settings.
[2020-04-08] MEDS ORDERED: Nursing to Pharmacy Communication SCH ×2 (04:10→06:30)
[2020-04-08] MEDS: OXYTOCIN 30 UNITS/500 ML BAG IV PRN (06:25)
--- NOTE | 2020-04-08 06:28 | Labor Progress Brief Note ---
Date of Service April 08, 2020 Subjective Patient without headache, RUQ pain, vision change. Feels more alert. Assessment & Plan (1) Preeclampsia: Discussion with patient and FOB about progress thus far. Severe preeclampsia with management on magnesium that reached super-therapeutic levels and has been turned off. Will recheck level but anticipate she remains therapeutic as DTR 2+ right now. Labs overnight show no significant problems with renal or hepatic function, platelets still good. Urine darkened with magnesium tox but is recovering with fluids at 125cc/hr status did not allow pitocin use over last few hours, but with + scalp stim status is considered reassuring. We reviewed labor has been slow, and that we can move to to promptly treat her preeclampsia, but patient and FOB continue to wish to avoid this unless medically necessary. She also made cervical change in the last 3 hours despite having no pitocin and rare contractions. I continue to note molding and did discuss that even if she reaches complete dilation I cannot guarantee the baby will be born vaginally. We discussed that level of risk is least with vaginal delivery, next least with planned , and most with continued IOL attempt that results in C/S. Patient and FOB feel that most appealing option is to restart pitocin and see if progress continues over a few more hours. They will be agreeable to C/S if significant progress does not occur or if status shows inability to tolerate a more aggressive labor course. They are aware of physician shift change coming up this morning as well, Dr. Cason oncoming physician. Physical Exam Physical Exam: FHT 120 mod concetta, no accels for several hours but no decels either. + Scalp stim obtained during exam, then spontaneous accel seen afterwards. Pit has been off per RN as no reactive NST obtained prior to now. Magnesium has been off as ordered. Cervix: 7/100/-1 with significant molding noted. Urine in novak remains blood tinged, however much clearer; has gone from cola to very weak tea. Labs reviewed. DTR 2+ BP noted to be elevated to 169/88 after discussion with MD of options. Previously had ranged from 140s to 160s and did not meet criteria for IV labetalol in last few hours. LOF continues to be clear. Results & Data Vital Signs (Past 12 Hours) Vital Signs Temp Pulse Resp BP Pulse Ox 04/08/20 06:20 102 H 169/88 H 06/10/20 06:17 109 H 100 04/08/20 06:12 101 H 100 04/08/20 06:07 84 100 04/08/20 06:05 87 159/79 H 04/08/20 06:02 98 H 100 04/08/20 05:57 105 H 100 04/08/20 05:52 86 100 04/08/20 05:50 83 165/77 H 04/08/20 05:47 91 H 100 04/08/20 05:42 82 100 04/08/20 05:37 82 100 04/08/20 05:35 80 147/70 H 04/08/20 05:32 84 100 04/08/20 05:27 80 100 04/08/20 05:22 84 100 04/08/20 05:20 82 152/73 H 04/08/20 05:17 83 100 04/08/20 05:12 79 100 04/08/20 05:07 80 100 04/08/20 05:05 97.7 F 80 18 130/66 04/08/20 05:02 87 100 04/08/20 04:57 84 100 04/08/20 04:52 83 92 04/08/20 04:51 82 124/67 04/08/20 04:47 84 93 04/08/20 04:42 83 93 04/08/20 04:37 83 92 04/08/20 04:35 85 123/62 04/08/20 04:32 83 91 04/08/20 04:27 82 93 04/08/20 04:22 81 91 04/08/20 04:19 81 119/61 04/08/20 04:17 84 97 04/08/20 04:12 81 109/58 L 91 04/08/20 04:07 82 94 04/08/20 04:06 90 123/63 04/08/20 04:04 86 126/60 04/08/20 04:02 95 H 133/63 96 04/08/20 04:00 99 H 148/80 H 04/08/20 03:58 96 H 18 144/73 H 04/08/20 03:57 97 H 94 04/08/20 03:56 100 H 137/69 04/08/20 03:53 99 H 167/82 H 04/08/20 03:52 101 H 97 06/10/20 03:47 102 H 97 04/08/20 03:42 106 H 100 04/08/20 03:38 91 H 160/72 H 04/08/20 03:37 92 H 100 04/08/20 03:32 92 H 100 04/08/20 03:27 80 100 04/08/20 03:23 86 160/76 H 04/08/20 03:22 87 100 04/08/20 03:17 100 H 100 04/08/20 03:16 16 04/08/20 03:12 93 H 100 04/08/20 03:08 80 166/78 H 04/08/20 03:07 84 100 04/08/20 03:02 94 H 100 04/08/20 02:57 87 100 04/08/20 02:53 97.7 F 81 165/83 H 04/08/20 02:52 84 100 04/08/20 02:47 81 100 04/08/20 02:42 85 100 04/08/20 02:38 84 166/83 H 04/08/20 02:37 85 100 04/08/20 02:32 79 100 04/08/20 02:27 88 100 04/08/20 02:23 84 160/86 H 04/08/20 02:22 87 100 04/08/20 02:17 81 100 04/08/20 02:12 85 100 04/08/20 02:08 81 153/80 H 04/08/20 02:07 83 100 04/08/20 02:02 92 H 100 04/08/20 01:57 80 100 04/08/20 01:56 81 18 166/80 H 04/08/20 01:52 85 100 04/08/20 01:47 84 100 04/08/20 01:42 82 100 04/08/20 01:40 87 170/97 H 04/08/20 01:37 89 100 04/08/20 01:32 82 100 04/08/20 01:27 81 100 04/08/20 01:26 81 160/76 H 04/08/20 01:22 85 100 04/08/20 01:17 81 100 04/08/20 01:12 96 H 100 04/08/20 01:09 80 174/81 H 04/08/20 01:07 78 100 04/08/20 01:02 90 100 04/08/20 00:57 85 100 04/08/20 00:56 98.8 F 78 18 150/75 H 04/08/20 00:52 79 100 04/08/20 00:47 81 100 04/08/20 00:42 85 95 04/08/20 00:38 88 157/77 H 04/08/20 00:37 92 H 97 04/08/20 00:32 85 97 04/08/20 00:27 81 97 04/08/20 00:22 88 98 04/08/20 00:17 88 97 04/08/20 00:12 83 92 04/08/20 00:08 77 136/71 04/08/20 00:07 77 95 04/08/20 00:02 83 97 04/07/20 23:57 88 98 04/07/20 23:53 75 18 145/70 H 04/07/20 23:52 77 95 04/07/20 23:47 74 93 04/07/20 23:42 90 98 04/07/20 23:39 97 H 129/68 04/07/20 23:37 94 H 97 04/07/20 23:32 85 97 04/07/20 23:27 88 97 04/07/20 23:25 83 148/73 H 04/07/20 23:22 84 93 04/07/20 23:17 81 91 04/07/20 23:12 94 H 97 04/07/20 23:09 84 151/76 H 04/07/20 23:07 87 93 04/07/20 23:04 81 89 L 04/07/20 23:02 88 93 04/07/20 23:00 18 04/07/20 22:57 85 91 04/07/20 22:54 98.2 F 86 18 145/78 H 04/07/20 22:52 86 92 04/07/20 22:47 84 92 04/07/20 22:42 87 93 04/07/20 22:38 85 142/72 H 04/07/20 22:37 85 92 04/07/20 22:32 90 93 04/07/20 22:27 88 93 04/07/20 22:24 87 141/71 H 04/07/20 22:22 90 93 04/07/20 22:17 86 93 04/07/20 22:12 86 93 04/07/20 22:08 84 138/72 04/07/20 22:07 83 95 04/07/20 22:02 94 H 97 04/07/20 21:57 94 H 98 04/07/20 21:53 92 H 18 139/76 04/07/20 21:52 94 H 98 04/07/20 21:47 93 H 98 04/07/20 21:42 84 95 04/07/20 21:39 81 126/70 04/07/20 21:37 85 94 04/07/20 21:32 85 97 04/07/20 21:27 79 92 04/07/20 21:23 82 126/59 L 04/07/20 21:22 84 95 04/07/20 21:17 83 93 04/07/20 21:12 82 94 04/07/20 21:08 91 H 126/66 04/07/20 21:07 86 93 04/07/20 21:02 79 95 04/07/20 20:57 79 92 04/07/20 20:53 97.7 F 80 18 124/65 04/07/20 20:52 81 96 04/07/20 20:47 79 93 04/07/20 20:42 82 94 04/07/20 20:38 80 119/65 04/07/20 20:37 81 92 04/07/20 20:32 78 94 04/07/20 20:27 85 96 04/07/20 20:24 95 H 132/70 04/07/20 20:22 92 H 97 04/07/20 20:17 84 95 04/07/20 20:12 85 96 04/07/20 20:08 90 18 126/68 04/07/20 20:07 88 96 04/07/20 20:02 90 96 04/07/20 19:57 94 H 97 04/07/20 19:54 84 140/71 04/07/20 19:52 84 94 04/07/20 19:47 92 H 94 04/07/20 19:42 86 94 04/07/20 19:39 86 139/73 04/07/20 19:37 84 92 04/07/20 19:32 92 H 96 04/07/20 19:27 85 93 04/07/20 19:23 86 126/69 04/07/20 19:22 86 93 04/07/20 19:17 95 H 98 04/07/20 19:12 92 H 97 04/07/20 19:08 97.9 F 81 18 122/69 04/07/20 19:07 82 93 04/07/20 19:02 89 98 04/07/20 18:57 91 H 96 04/07/20 18:53 86 137/78 04/07/20 18:52 86 94 04/07/20 18:47 83 92 04/07/20 18:42 81 94 04/07/20 18:37 80 126/69 94 04/07/20 18:32 86 97 04/07/20 18:27 90 98 04/07/20 18:25 79 89 L 04/07/20 18:22 95 H 99 Coding Level of Care Code None Diagnoses Preeclampsia O14.90
[2020-04-08] MEDS: CALCIUM CARBONATE 500 MG CHEWABLE TAB PO PRN (06:47)
[2020-04-08] MEDS: LABETALOL HCL 100 MG TAB PO SCH ×2 (07:18→21:06)
[2020-04-08] MEDS: LACTATED RINGER'S 1,000 ML IV PRN (07:39)
[2020-04-08] MEDS: MAGNESIUM SULFATE / WTR 40 GM/1,000 ML BAG IV SCH (08:10)
[2020-04-08] MEDS ORDERED: CARBOPROST TROMETHAMINE 250 MCG/ML AMPUL ONE (08:53)
--- NOTE | 2020-04-08 09:02 | Labor Progress Brief Note ---
Date of Service April 08, 2020 Subjective Reason For Note: Other (Change of shift) The patient is a 34-year-old 2 para 0 with an EDC of 01 May, at 36+ weeks gestational age, who has been admitted for induction for severe preeclampsia. The patient's induction started with placement of the Nguyen catheter with spontaneous rupture membranes. Patient received 12 to 18 hours of Pitocin to a maximum dose of 30 milliunits with no cervical change. The Pitocin was discontinued and the patient then received p.o. Cytotec 50 mcg. Patient began to contract in a regular fashion has now been on Pitocin for approximately 20 hours. The patient has been maintained on magnesium but had an episode of mag toxicity with her mag level of 9 with a loss of reflexes. Magnesium was discontinued. Last magnesium level was 6. Because of the patient's blood pressure she has been maintained on p.o. labetalol 200 mg twice daily. Patient has been normotensive on that dosage. 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 -All questions answered of the patient -Permit has been signed -Peds and anesthesia have been notified Physical Exam Genitourinary: Cervix: 6 cm / 100%/-1 Results & Data Vital Signs (Past 12 Hours) Vital Signs Temp Pulse Resp BP Pulse Ox 04/08/20 08:52 87 94 04/08/20 08:47 89 95 04/08/20 08:42 89 98 04/08/20 08:38 79 88 L 04/08/20 08:37 72 98 04/08/20 08:36 72 111/58 L 04/08/20 08:33 76 87 L 04/08/20 08:32 83 97 04/08/20 08:27 88 98 04/08/20 08:24 82 89 L 04/08/20 08:22 83 95 04/08/20 08:20 93 H 145/79 H 04/08/20 08:17 85 97 04/08/20 08:12 81 94 04/08/20 08:07 82 94 04/08/20 08:05 88 143/74 H 04/08/20 08:02 78 91 04/08/20 07:57 80 90 04/08/20 07:54 80 89 L 04/08/20 07:52 86 89 L 04/08/20 07:50 81 161/83 H 04/08/20 07:48 83 88 L 04/08/20 07:47 79 90 04/08/20 07:42 98 H 97 04/08/20 07:37 93 H 97 04/08/20 07:35 94 H 146/72 H 04/08/20 07:32 90 95 04/08/20 07:27 82 93 04/08/20 07:22 92 H 94 04/08/20 07:21 100 H 177/88 H 04/08/20 07:17 95 H 96 04/08/20 07:15 96 H 164/83 H 04/08/20 07:12 94 H 96 04/08/20 07:09 97 H 177/89 H 04/08/20 07:07 100 H 96 04/08/20 07:05 94 H 165/85 H 04/08/20 07:04 99.5 F 22 04/08/20 07:02 97 H 96 04/08/20 06:57 101 H 96 04/08/20 06:52 98 H 96 04/08/20 06:51 92 H 166/82 H 04/08/20 06:47 95 H 97 04/08/20 06:42 97 H 95 04/08/20 06:37 100 H 96 04/08/20 06:35 94 H 158/85 H 04/08/20 06:32 96 H 97 04/08/20 06:27 98 H 97 04/08/20 06:22 106 H 98 04/08/20 06:20 102 H 169/88 H 04/08/20 06:17 109 H 100 04/08/20 06:12 101 H 100 04/08/20 06:07 84 100 04/08/20 06:05 87 18 159/79 H 04/08/20 06:02 98 H 100 04/08/20 05:57 105 H 100 04/08/20 05:52 86 100 04/08/20 05:50 83 165/77 H 04/08/20 05:47 91 H 100 04/08/20 05:42 82 100 04/08/20 05:37 82 100 04/08/20 05:35 80 147/70 H 04/08/20 05:32 84 100 04/08/20 05:27 80 100 04/08/20 05:22 84 100 04/08/20 05:20 82 152/73 H 04/08/20 05:17 83 100 04/08/20 05:12 79 100 04/08/20 05:07 80 100 04/08/20 05:05 97.7 F 80 18 130/66 04/08/20 05:02 87 100 04/08/20 04:57 84 100 04/08/20 04:52 83 92 04/08/20 04:51 82 124/67 04/08/20 04:47 84 93 04/08/20 04:42 83 93 04/08/20 04:37 83 92 04/08/20 04:35 85 123/62 04/08/20 04:32 83 91 04/08/20 04:27 82 93 04/08/20 04:22 81 91 04/08/20 04:19 81 119/61 04/08/20 04:17 84 97 04/08/20 04:12 81 109/58 L 91 04/08/20 04:07 82 94 04/08/20 04:06 90 123/63 04/08/20 04:04 86 126/60 04/08/20 04:02 95 H 133/63 96 04/08/20 04:00 99 H 148/80 H 04/08/20 03:58 96 H 18 144/73 H 04/08/20 03:57 97 H 94 04/08/20 03:56 100 H 137/69 04/08/20 03:53 99 H 167/82 H 04/08/20 03:52 101 H 97 04/08/20 03:47 102 H 97 04/08/20 03:42 106 H 100 04/08/20 03:38 91 H 160/72 H 04/08/20 03:37 92 H 100 04/08/20 03:32 92 H 100 04/08/20 03:27 80 100 04/08/20 03:23 86 160/76 H 04/08/20 03:22 87 100 04/08/20 03:17 100 H 100 04/08/20 03:16 16 04/08/20 03:12 93 H 100 04/08/20 03:08 80 166/78 H 04/08/20 03:07 84 100 04/08/20 03:02 94 H 100 04/08/20 02:57 87 100 04/08/20 02:53 97.7 F 81 165/83 H 04/08/20 02:52 84 100 04/08/20 02:47 81 100 04/08/20 02:42 85 100 04/08/20 02:38 84 166/83 H 04/08/20 02:37 85 100 04/08/20 02:32 79 100 04/08/20 02:27 88 100 04/08/20 02:23 84 160/86 H 04/08/20 02:22 87 100 04/08/20 02:17 81 100 04/08/20 02:12 85 100 04/08/20 02:08 81 153/80 H 04/08/20 02:07 83 100 04/08/20 02:02 92 H 100 04/08/20 01:57 80 100 04/08/20 01:56 81 18 166/80 H 04/08/20 01:52 85 100 04/08/20 01:47 84 100 04/08/20 01:42 82 100 04/08/20 01:40 87 170/97 H 04/08/20 01:37 89 100 04/08/20 01:32 82 100 04/08/20 01:27 81 100 04/08/20 01:26 81 160/76 H 04/08/20 01:22 85 100 04/08/20 01:17 81 100 04/08/20 01:12 96 H 100 04/08/20 01:09 80 174/81 H 04/08/20 01:07 78 100 04/08/20 01:02 90 100 04/08/20 00:57 85 100 04/08/20 00:56 98.8 F 78 18 150/75 H 04/08/20 00:52 79 100 04/08/20 00:47 81 100 04/08/20 00:42 85 95 06/10/20 00:38 88 157/77 H 04/08/20 00:37 92 H 97 04/08/20 00:32 85 97 04/08/20 00:27 81 97 04/08/20 00:22 88 98 04/08/20 00:17 88 97 04/08/20 00:12 83 92 04/08/20 00:08 77 136/71 04/08/20 00:07 77 95 04/08/20 00:02 83 97 04/07/20 23:57 88 98 04/07/20 23:53 75 18 145/70 H 04/07/20 23:52 77 95 04/07/20 23:47 74 93 04/07/20 23:42 90 98 04/07/20 23:39 97 H 129/68 04/07/20 23:37 94 H 97 04/07/20 23:32 85 97 04/07/20 23:27 88 97 04/07/20 23:25 83 148/73 H 04/07/20 23:22 84 93 04/07/20 23:17 81 91 04/07/20 23:12 94 H 97 04/07/20 23:09 84 151/76 H 04/07/20 23:07 87 93 04/07/20 23:04 81 89 L 04/07/20 23:02 88 93 04/07/20 23:00 18 04/07/20 22:57 85 91 04/07/20 22:54 98.2 F 86 18 145/78 H 04/07/20 22:52 86 92 04/07/20 22:47 84 92 04/07/20 22:42 87 93 04/07/20 22:38 85 142/72 H 04/07/20 22:37 85 92 04/07/20 22:32 90 93 04/07/20 22:27 88 93 04/07/20 22:24 87 141/71 H 04/07/20 22:22 90 93 04/07/20 22:17 86 93 04/07/20 22:12 86 93 04/07/20 22:08 84 138/72 04/07/20 22:07 83 95 04/07/20 22:02 94 H 97 04/07/20 21:57 94 H 98 04/07/20 21:53 92 H 18 139/76 04/07/20 21:52 94 H 98 04/07/20 21:47 93 H 98 04/07/20 21:42 84 95 04/07/20 21:39 81 126/70 04/07/20 21:37 85 94 04/07/20 21:32 85 97 04/07/20 21:27 79 92 04/07/20 21:23 82 126/59 L 04/07/20 21:22 84 95 04/07/20 21:17 83 93 04/07/20 21:12 82 94 04/07/20 21:08 91 H 126/66 04/07/20 21:07 86 93 04/07/20 21:02 79 95 Coding Level of Care Code None Diagnoses Preeclampsia O14.90
--- NOTE | 2020-04-08 09:07 | Anesthesiology Consultation ---
Date of Service April 08, 2020 Assessment & Plan (1) Encounter for pre-operative examination: Chart Review Chart Review: Acceptable Risk for Surgery History Surgery Operation Date: 04/08/20 08:55 Proposed Procedures p Section in LD - Marcos Cason Jr, MD, FACOG Height/Weight Height: 5 ft 2 in Weight: 95.708 kg Allergies Allergy/AdvReac Type Severity Reaction Status Date / Time Sulfa (Sulfonamide Allergy Intermediate RASH - Verified 04/08/20 07:07 Antibiotics) "SULFA DRUGS" Medications Home Medications Medication Instructions Recorded Confirmed Last Taken PNV [id number] fumarate-FA 1 tab PO DAILY 04/06/20 04/06/20 04/05/20 21:00 [] aspirin [Aspirin Low Dose] 81 mg PO DAILY 04/06/20 04/06/20 04/05/20 21:00 famotidine 20 mg PO DAILY 04/06/20 04/06/20 Unknown ferrous sulfate [iron] 325 mg PO DAILY 04/06/20 04/06/20 04/05/20 09:00 Active Medications Generic Name Dose Route Start Last Admin Trade Name Freq PRN Reason Stop Dose Admin Acetaminophen 650 mg 04/06/20 17:15 04/06/20 17:30 Tylenol PO 05/06/20 17:14 650 mg Q4H PRN Administration Headache or Pain Calcium Carbonate 500 mg 04/07/20 01:20 04/08/20 06:47 Tums PO 05/07/20 01:19 500 mg Q4 PRN Administration Indigestion Lactated Ringer's 1,000 mls @ 125 mls/hr 04/06/20 12:59 04/08/20 07:39 Lr IV 04/08/20 12:58 125 mls/hr .Q8H PRN Administration L&D Protocol Protocol Magnesium Sulfate 40 gm in 1,000 mls @ 25 mls/hr 04/06/20 13:00 04/08/20 08 :10 Magnesium Sulfate / Wtr IV 05/06/20 12:59 25 mls/hr .Q24H YAHIR Administration Oxytocin 30 units in 500 mls @ 7 mls/hr 04/06/20 14:23 04/08/20 09:03 Pitocin IV 04/08/20 14:22 Infused .Q24H PRN Titration Labor Induction/Augmentation Protocol 0.42 UNITS/HR Famotidine 20 mg/ Syringe 5 mls @ 2.5 mls/min 04/07/20 09:00 04/07/20 22:42 IV 05/07/20 08:59 Not Given BID YAHIR Labetalol HCl 200 mg 04/06/20 21:00 04/08/20 07:18 Normodyne PO 05/06/20 20:59 200 mg BID YAHIR Administration Ondansetron HCl 4 mg 04/06/20 23:09 04/08/20 00:44 Zofran IV 05/06/20 23:08 4 mg Q6H PRN Administration Nausea Ropivacaine 100 ml 04/07/20 18:24 04/08/20 08:15 Epidural (L&D) EPI 04/08/20 18:23 12 ml PRN PRN Administration Pain R/T Labor Protocol NPO Date Last Intake of Fluids: 04/08/20 Time Last Intake of Fluids: 07:00 Last Intake of Fluids Comment: sips since yesterday Date Last Intake of Solids: 04/07/20 Time Last Intake of Solids: 08:00 Past Medical History Medical History History of kidney stones (Acute) History of varicella Lithoptysis (Acute) Obese PFO (patent foramen ovale) (Acute) Past Family History Family History Mother Diabetes Father Dyslipidemia Hypertension Past Surgical History Surgical History H/O lithotripsy (Acute) History of renal stent (Acute) S/P dilation and curettage S/P wisdom tooth extraction Social History Smoking Status: Never smoker Hx Alcohol Use: Yes (rarely) alcohol intake frequency: holidays/special occasions only Hx Substance Use: No substance use type: does not use Physical Exam Vital Signs Last Vital Signs Temp 37.5 C 04/08/20 07:04 Pulse 87 04/08/20 09:05 Resp 22 04/08/20 07:04 BP 138/72 04/08/20 09:05 Pulse Ox 97 04/08/20 09:02 Testing Laboratory Results 04/08/20 02:00 04/08/20 02:00 PT 9.3 Seconds (9.0-12.0) 04/08/20 02:00 INR 0.9 (0.9-1.1) 04/08/20 02:00 APTT 23.0 Seconds (21.0-31.0) 04/08/20 02:00 Blood Type O Positive 04/06/20 13:11 Antibody Screen NEGATIVE 04/06/20 13:11
[2020-04-08] MEDS ORDERED: MoRPHine SULFATE PF 1 MG/ML 10 ML AMP/VIAL ONE (09:11)
[2020-04-08] MEDS ORDERED: CITRIC ACID/SODIUM CITRATE 15 ML UDC ONE (09:16)
[2020-04-08] MEDS ORDERED: LACTATED RINGER'S 1,000 ML IV SCH (09:30)
[2020-04-08] MEDS ORDERED: CEFAZOLIN 3000MG 65 ML IV SCH (09:45)
[2020-04-08] MEDS ORDERED: CITRIC ACID/SODIUM CITRATE 15 ML UDC PO SCH (09:45)
[2020-04-08 10:24] LABS: Base Excess Cord Arterial Bld -1.2 mEq/L (-9-1.8); CO2 Cord Arterial Blood 52 mmHg (39.1-73.5); HCO3 Cord Arterial Blood 26 mmol/L (19.7-28.5); PO2 Cord Arterial Blood 20 mmHg (4.1-31.7); pH Cord Arterial Blood 7.31 (7.1-7.38)
--- NOTE | 2020-04-08 10:26 | Post Operative Brief Note ---
PG Immediate Post Op with CF Date of Surgery April 08, 2020 Pre & Post Diagnosis Operation Date: 04/08/20 08:55 Pre-Op Diagnosis: 1. Complicated at 36 weeks gestation 2. Severe PIH 3. Failure to Progress I identified the patient and participated in the time-out.: Yes Procedure Operation Date: 04/08/20 08:55 Actual Procedures p Section in LD(Bilateral) - Marcos Cason Jr, MD, FACOG Surgeon Marcos Cason Jr, MD, FACOG Training Lead Thanh Estimated Blood Loss 800 Findings See Below (Viable male , gasses pending, normal appearing tubes and ovaries) Specimens Specimen Description: placenta-exam cord blood cord gases Drains Nguyen Catheter
[2020-04-08 10:28] LABS: Cord Venous Blood HCO3 25 mmol/L (18.4-26.8); Cord Venous Blood PCO2 44 mmHg (30.4-57.2); Cord Venous Blood PO2 31 mmHg (14.1-43.3); Cord Venous Blood pH 7.37 (7.20-7.44); Oxygen Sat Cord Arterial Blood < 60.0 % (<60)
[2020-04-08] MEDS ORDERED: LIDOCAINE/EPINEPHRINE 2% 1:200,000 20 ML SDV ONE (10:29)
[2020-04-08] MEDS ORDERED: ONDANSETRON INJ 2 MG/ML 2 ML VIAL ONE (10:29)
[2020-04-08] MEDS ORDERED: OXYTOCIN 10 UNITS/ML VIAL ONE (10:29)
[2020-04-08] MEDS ORDERED: ePHEDrine sulfate 50 MG/ML SYR ONE (10:29)
[2020-04-08] MEDS ORDERED: METOCLOPRAMIDE HCL INJ 5 MG/ML 2 ML VIAL ONE (10:29)
[2020-04-08] MEDS ORDERED: PHENYLEPHRINE 100MCG/ML 5ML SYR ONE (10:29)
[2020-04-08] MEDS ORDERED: LACTATED RINGER'S 500 ML IV PRN (10:42)
[2020-04-08] MEDS ORDERED: KETOROLAC 30 MG/ML VIAL IV PRN (10:42)
[2020-04-08] MEDS ORDERED: NALOXONE HCL 0.4 MG/1 ML VIAL/CARP IV PRN (10:42)
[2020-04-08] MEDS ORDERED: PROMETHAZINE HCL 12.5 MG in SODIUM CHLORIDE 0.9% 50 ML IV PRN (10:42)
[2020-04-08] MEDS ORDERED: ONDANSETRON INJ 2 MG/ML 2 ML VIAL IV PRN (10:42)
[2020-04-08] MEDS ORDERED: MEPERIDINE HCL 25 MG/ML CARP/VIAL IV PRN (10:42)
[2020-04-08] MEDS ORDERED: MoRPHine SULFATE PF 1 MG/ML 10 ML AMP/VIAL EPI ONE (10:42)
[2020-04-08] MEDS ORDERED: DiphenhydrAMINE HCL 50 MG/ML VIAL IV PRN (10:42)
[2020-04-08] MEDS ORDERED: ePHEDrine sulfate 50 MG/ML AMP IV PRN (10:42)
[2020-04-08] MEDS ORDERED: NALOXONE HCL 1 MG in SODIUM CHLORIDE 0.9% 1000ML 1,000 ML IV PRN (10:42)
[2020-04-08] MEDS ORDERED: NALBUPHINE HCL INJ 10 MG/ML AMP IV PRN (10:42)
[2020-04-08] MEDS ORDERED: NALOXONE HCL 0.08 MG in SYRINGE 1.8 ML IV PRN (10:42)
[2020-04-08] MEDS ORDERED: NO NARCOTICS OR SEDATIVES SCH (10:45)
[2020-04-08] MEDS ORDERED: MAGNESIUM SULFATE / WTR 40 GM/1,000 ML BAG IV SCH (10:45)
[2020-04-08] MEDS ORDERED: SODIUM CHLORIDE 0.9% 1000ML 1,000 ML IV SCH (10:45)
--- NOTE | 2020-04-08 10:45 | Anesthesia Procedure Note ---
Date of Service April 08, 2020 Anesthesia Post Epidural Note Vital Signs Vital Signs: Temp Pulse Resp BP Pulse Ox 37.5 C 75 22 142/68 H 85 L 04/08/20 07:04 04/08/20 10:44 04/08/20 07:04 04/08/20 10:44 04/08/20 10:43 Pain Intensity Back: Pain Intensity: 0 Notes Mental Status: alert / awake / arousable and participated in evaluation Nausea / Vomiting: adequately controlled Pain: adequately controlled Airway Patency, RR, SpO2: stable & adequate BP & HR: stable & adequate Hydration State: stable & adequate Neuraxial Anesthesia: was administered and sensory block is resolving Anesthetic Complications: no major complications apparent Epidural: Removed without complications and With tip intact
[2020-04-08] MEDS ORDERED: DIPHTHERIA/TETANUS/PERTUSSIS 0.5 ML SYR/VIAL IM ONE (11:06)
[2020-04-08] MEDS ORDERED: BENZOCAINE 20% AER SPR 82.5 GM CAN EXT PRN (11:06)
[2020-04-08] MEDS ORDERED: SUPERCREAM 0.870% 15 GM JAR EXT PRN (11:06)
[2020-04-08] MEDS ORDERED: HYDROCORTISONE ACETATE 25 MG SUPP PR PRN (11:06)
--- NOTE | 2020-04-08 11:08 | Operative Report (OR) ---
DATE OF OPERATION: 04/08/2020 PREOPERATIVE DIAGNOSES: 1. Complicated at 36+ weeks gestational age. 2. Severe preeclampsia. 3. Failure to progress. POSTOPERATIVE DIAGNOSES: Same. PROCEDURE PERFORMED: Primary low cervical transverse section. SURGEON: Marcos Cason MD REDRAWER: Kasia Law MD. ANESTHESIA: Epidural. FINDINGS: Viable male with Apgars of 6, 3, and 9 and a weight of 6 pounds 10 ounces. Arterial and venous cord gases are pending, normal appearing tubes and ovaries bilaterally. PROCEDURE IN DETAIL: The patient was taken to the operating room and after epidural anesthesia, was placed in supine position, draped and prepped in the usual fashion. Pfannenstiel type incision was made. Underlying subcutaneous tissue was dissected down to the ventral abdominal fascia, which was nicked and opened in a horizontal manner. Preperitoneal fascia was dissected away until the peritoneal cavity was entered and opened in a vertical manner. Luis self-retractor was inserted into the incision. The peritoneum overlying the uterus was elevated, the inferior margin of which was taken down creating the bladder flap. Uterus was entered sharply and extended in a semilunar fashion manually. Viable male infant was delivered. Cord was clamped and cut and the baby was passed off to pediatrics who was in attendance for the delivery. Cord gases and cord blood samples were obtained. Placenta was delivered spontaneously and sent for pathological evaluation. The uterus was then exteriorized. The uterine cavity was wiped clean of any residual blood tissue and/or clot. The uterine incision was then closed with 2 layers of 4-0 Vicryl, the first a running locking stitch, the second an imbricating stitch. Hemostasis was achieved and the uterus was returned to the pelvic cavity. The pericolic gutters were cleared bilaterally of any blood tissue and/or clot. Sponge and needle count was correct. Uterine incision was inspected again for hemostasis, which was present. The Luis retractor was removed. The rectus muscle was plicated in the midline with a running 2-0 Vicryl stitch. The fascia was closed laterally with a running 0 Vicryl suture. The subcutaneous tissue was irrigated with warm saline and then reapproximated with interrupted 2-0 plain sutures. The skin incision was closed with a 4-0 Monocryl subcuticular suture. Sterile dressing was applied. The patient was taken to the recovery room in satisfactory condition. I attest to the content of the Intraoperative Record and any orders documented therein. Any exception s are noted below.
[2020-04-08 11:14] LABS: Hematocrit (blood only) 29.2 % (37-47); Hemoglobin 9.9 g/dL (12.0-16.0); Mean Corpuscular Hemoglobin 31.2 pg (25-34); Mean Corpuscular Hgb Conc 33.9 g/dL (32-36); Mean Corpuscular Volume 92.1 fL (80-100); Mean Platelet Volume 10.7 fL (7.4-10.4); Platelet Count 157 K/uL (130-400); RDW Coefficient of Variation 14.3 % (11.5-14.5); Red Blood Count 3.17 M/uL (4.2-5.4); White Blood Count 18.82 K/uL (4.8-10.8)
[2020-04-08] MEDS: FAMOTIDINE 20 MG in SYRINGE 3 ML IV SCH ×2 (11:28→23:29)
[2020-04-08] MEDS: OXYTOCIN 20 UNITS in LACTATED RINGER'S 1,000 ML IV SCH ×2 (12:48→18:47)
[2020-04-08 17:02] LABS: Hematocrit (blood only) 28.3 % (37-47); Hemoglobin 9.6 g/dL (12.0-16.0); Mean Corpuscular Hemoglobin 31.3 pg (25-34); Mean Corpuscular Hgb Conc 33.9 g/dL (32-36); Mean Corpuscular Volume 92.2 fL (80-100); Mean Platelet Volume 10.8 fL (7.4-10.4); Platelet Count 170 K/uL (130-400); RDW Coefficient of Variation 14.3 % (11.5-14.5); RDW Standard Deviation 47.3 fL (36.4-46.3); Red Blood Count 3.07 M/uL (4.2-5.4); White Blood Count 18.19 K/uL (4.8-10.8)
[2020-04-08 19:22] LABS: Hematocrit (blood only) 28.2 % (37-47); Hemoglobin 9.2 g/dL (12.0-16.0); Mean Corpuscular Hemoglobin 30.1 pg (25-34); Mean Corpuscular Hgb Conc 32.6 g/dL (32-36); Mean Corpuscular Volume 92.2 fL (80-100); Mean Platelet Volume 10.2 fL (7.4-10.4); Platelet Count 169 K/uL (130-400); RDW Coefficient of Variation 14.2 % (11.5-14.5); RDW Standard Deviation 46.9 fL (36.4-46.3); Red Blood Count 3.06 M/uL (4.2-5.4); White Blood Count 17.04 K/uL (4.8-10.8)
[2020-04-09] MEDS: LACTATED RINGER'S 1,000 ML IV SCH ×2 (02:28→09:01)
[2020-04-09] MEDS ORDERED: DC INTRASPINAL MORPHINE SCH (04:42)
[2020-04-09] MEDS ORDERED: DiphenhydrAMINE HCL 50 MG/ML VIAL IV PRN (04:45)
[2020-04-09] MEDS ORDERED: KETOROLAC 30 MG/ML VIAL IV PRN (04:45)
[2020-04-09] MEDS ORDERED: ONDANSETRON INJ 2 MG/ML 2 ML VIAL IV PRN (04:45)
[2020-04-09] MEDS: FAMOTIDINE 20 MG in SYRINGE 3 ML IV SCH ×4 (04:59→21:35)
--- NOTE | 2020-04-09 06:31 | Obstetrical Progress Note ---
Date of Service <Miguel Trimble DO - Last Filed: 04/09/20 06:42> April 09, 2020 Assessment & Plan <Miguel Trimble DO - Last Filed: 04/09/20 06:42> (1) Preeclampsia: -POD#1 -Vitals reviewed, occasional higher pressures in the 140's/70's though stable. - GBS -, Blood Type O+ - Clinically stable. - Feels well today. Novak still in place, plan for removal later today. Will likely advance diet as tolerated later today as well. - IV Mag for severe preeclampsia, complete at 10:00 this AM - Pain well controlled. - Routine post care - After discharge will have [address] Cason Day #:: 1 Subjective <Miguel Trimble DO - Last Filed: 04/09/20 06:42> Ambulation: limited ambulation Voiding: novak catheter in place (medium shade yellow urine in bag ) Passing Gas:: Yes Diet Tolerance:: clear liquids Lochia:: Small Feeding Type:: breast feeding (and bottle feeding to supplement ) Current Pain Level(1-10): 1 (Markedly improved with analgesics) Patient is a 34 POD#1. Patient states that she is doing relatively well this morning and that her pain is significantly controlled. She does still have some annoyances to being on the Magnesium, but understands it is a necessary component of her care. She has no other complaints or concerns at this time. Constitutional: no fever and no chills Respiratory: no cough, no dyspnea and no wheezing Cardiovascular: + edema; no chest pain, no dyspnea, no dyspnea on exertion and no calf pain Breast: no breast pain Gastrointestinal: + abdominal pain (diffuse, but primarily in the lower quadr ants); no nausea and no vomiting Genitourinary (female): no dysuria Neurologic: no headache(s) Physical Exam <DO Duc Lorenzana Last Filed: 04/09/20 06:42> Constitutional WD/WN, vitals as above Respiratory normal respiratory effort, lungs clear to auscultation Cardiovascular Rate/Rhythm: regular rate and regular rhythm Heart Sounds: normal S1 and normal S2; no click, no gallop, no murmur and no cardiac rub Extremities: + edema (+1); no calf tenderness Gastrointestinal (Abdomen) Inspection/Auscultation: abdomen normal to inspection, normal bowel sounds and + abdominal surgical incision (Dressing Clean and Dry) Percussion/Palpation: + abdomen tender (slight TTP in lower quadrants, appropriate. NO RUQ PAIN) and abdomen soft Neurologic patellar DTR's 2+ bilat, sensation intact Genitourinary OB Exam Abdomen: + fundal height Fundus: + firm; not tender and not boggy Results & Data <Miguel Trimble DO - Last Filed: 04/09/20 06:42> Vital Signs (Past 12 Hours) Vital Signs Temp Pulse Resp BP Pulse Ox 04/09/20 06:23 78 91 04/09/20 06:20 78 88 L 04/09/20 06:18 96 H 95 04/09/20 06:15 77 88 L 04/09/20 06:13 74 145/70 H 92 04/09/20 06:10 89 88 L 04/09/20 06:08 93 H 94 04/09/20 06:05 79 87 L 04/09/20 06:03 86 92 04/09/20 06:00 18 04/09/20 05:59 86 88 L 04/09/20 05:58 83 89 L 04/09/20 05:53 88 95 04/09/20 05:48 77 89 L 04/09/20 05:45 75 88 L 04/09/20 05:43 77 91 04/09/20 05:40 76 88 L 04/09/20 05:38 78 90 04/09/20 05:34 81 87 L 04/09/20 05:33 81 90 04/09/20 05:29 86 87 L 04/09/20 05:28 76 95 04/09/20 05:23 76 92 04/09/20 05:22 83 88 L 04/09/20 05:18 86 92 04/09/20 05:17 77 87 L 04/09/20 05:13 85 138/68 90 04/09/20 05:10 75 87 L 04/09/20 05:08 91 H 94 04/09/20 05:04 83 87 L 04/09/20 05:03 91 H 94 04/09/20 05:00 18 91 04/09/20 04:58 93 H 96 04/09/20 04:56 82 87 L 04/09/20 04:53 84 91 04/09/20 04:48 83 91 04/09/20 04:45 78 88 L 04/09/20 04:43 93 H 94 04/09/20 04:38 72 92 04/09/20 04:37 79 87 L 04/09/20 04:33 87 86 L 04/09/20 04:32 81 87 L 04/09/20 04:28 86 94 04/09/20 04:25 37.3 C 20 04/09/20 04:23 94 H 93 04/09/20 04:19 96 H 141/84 H 04/09/20 04:18 81 92 04/09/20 04:13 88 94 04/09/20 04:08 75 92 04/09/20 04:03 73 94 04/09/20 04:01 75 88 L 04/09/20 04:00 18 94 04/09/20 03:58 73 94 04/09/20 03:54 81 84 L 04/09/20 03:53 78 88 L 04/09/20 03:48 78 84 L 04/09/20 03:43 80 83 L 04/09/20 03:42 81 85 L 04/09/20 03:38 72 92 04/09/20 03:33 75 93 04/09/20 03:28 94 H 96 04/09/20 03:27 77 85 L 04/09/20 03:23 82 71 L 04/09/20 03:22 79 86 L 04/09/20 03:18 81 80 L 04/09/20 03:16 79 84 L 04/09/20 03:13 73 124/60 94 04/09/20 03:10 79 85 L 04/09/20 03:08 75 92 04/09/20 03:05 78 86 L 04/09/20 03:03 75 90 04/09/20 03:00 18 90 04/09/20 02:58 78 90 04/09/20 02:53 75 92 04/09/20 02:48 76 92 04/09/20 02:43 75 93 04/09/20 02:41 75 85 L 04/09/20 02:38 74 94 04/09/20 02:33 75 91 04/09/20 02:28 81 92 04/09/20 02:23 79 92 04/09/20 02:18 78 93 04/09/20 02:13 74 124/60 92 04/09/20 02:09 76 88 L 04/09/20 02:08 77 86 L 04/09/20 02:04 81 88 L 04/09/20 02:03 82 89 L 04/09/20 02:00 18 90 04/09/20 01:59 78 82 L 04/09/20 01:58 81 87 L 04/09/20 01:54 80 87 L 04/09/20 01:53 78 91 04/09/20 01:48 80 91 04/09/20 01:43 78 91 04/09/20 01:38 79 90 04/09/20 01:37 81 86 L 04/09/20 01:33 77 91 04/09/20 01:28 76 88 L 04/09/20 01:23 78 93 04/09/20 01:22 80 87 L 04/09/20 01:18 77 88 L 04/09/20 01:15 77 88 L 04/09/20 01:13 76 119/58 L 90 04/09/20 01:10 79 88 L 04/09/20 01:08 76 90 04/09/20 01:03 74 90 04/09/20 01:00 18 90 04/09/20 00:58 80 88 L 04/09/20 00:56 78 85 L 04/09/20 00:53 92 H 96 04/09/20 00:49 77 86 L 04/09/20 00:48 77 91 04/09/20 00:43 72 87 L 04/09/20 00:40 84 88 L 04/09/20 00:38 87 94 04/09/20 00:33 78 89 L 04/09/20 00:29 78 88 L 04/09/20 00:28 80 90 04/09/20 00:23 80 89 L 04/09/20 00:22 77 88 L 04/09/20 00:18 80 90 04/09/20 00:16 80 88 L 04/09/20 00:13 79 114/63 90 04/09/20 00:11 77 88 L 04/09/20 00:08 81 87 L 04/09/20 00:06 80 86 L 04/09/20 00:03 80 85 L 04/09/20 00:01 77 88 L 04/09/20 00:00 20 90 04/08/20 23:58 77 89 L 04/08/20 23:56 78 86 L 04/08/20 23:53 75 84 L 04/08/20 23:51 76 88 L 04/08/20 23:48 75 90 04/08/20 23:45 75 87 L 04/08/20 23:43 73 91 04/08/20 23:40 72 87 L 04/08/20 23:38 76 88 L 04/08/20 23:35 75 87 L 04/08/20 23:33 75 88 L 04/08/20 23:30 78 87 L 04/08/20 23:28 92 H 93 04/08/20 23:23 87 94 04/08/20 23:22 89 124/72 04/08/20 23:18 93 H 91 04/08/20 23:13 97 H 93 04/08/20 23:12 94 H 126/76 04/08/20 23:08 95 H 92 04/08/20 23:03 88 93 04/08/20 23:00 37.2 C 89 18 124/72 91 04/08/20 22:58 81 91 04/08/20 22:53 89 91 04/08/20 22:48 92 H 96 04/08/20 22:43 94 H 94 04/08/20 22:38 82 91 04/08/20 22:37 83 87 L 04/08/20 22:33 82 92 04/08/20 22:28 82 90 04/08/20 22:23 89 94 04/08/20 22:18 92 H 93 04/08/20 22:13 73 88 L 04/08/20 22:10 74 86 L 04/08/20 22:08 84 129/66 92 04/08/20 22:03 84 89 L 04/08/20 22:00 18 96 04/08/20 21:58 86 93 04/08/20 21:56 83 88 L 04/08/20 21:53 83 89 L 04/08/20 21:51 85 88 L 04/08/20 21:48 86 92 04/08/20 21:43 88 90 04/08/20 21:38 88 93 04/08/20 21:33 90 95 04/08/20 21:28 90 94 04/08/20 21:23 93 H 94 04/08/20 21:18 96 H 94 04/08/20 21:13 82 89 L 04/08/20 21:08 93 H 93 04/08/20 21:03 95 H 95 04/08/20 21:00 91 H 20 138/70 97 04/08/20 20:58 89 91 04/08/20 20:56 87 86 L 04/08/20 20:53 92 H 93 04/08/20 20:48 96 H 95 04/08/20 20:43 97 H 93 04/08/20 20:38 92 H 91 04/08/20 20:33 98 H 91 04/08/20 20:28 100 H 96 04/08/20 20:23 94 H 90 04/08/20 20:18 89 94 04/08/20 20:13 102 H 94 04/08/20 20:08 103 H 91 04/08/20 20:06 102 H 87 L 04/08/20 20:03 96 H 92 04/08/20 19:59 18 95 04/08/20 19:58 98 H 141/74 H 95 04/08/20 19:53 96 H 93 04/08/20 19:48 90 91 04/08/20 19:43 99 H 93 04/08/20 19:38 100 H 94 04/08/20 19:33 98 H 95 04/08/20 19:28 95 H 95 04/08/20 19:23 101 H 97 04/08/20 19:18 98 H 96 04/08/20 19:13 92 H 93 04/08/20 19:08 96 H 92 04/08/20 19:04 97 H 140/74 04/08/20 19:03 99 H 96 04/08/20 19:00 37.2 C 96 H 18 92 04/08/20 18:58 94 H 93 04/08/20 18:54 86 86 L 04/08/20 18:53 89 95 04/08/20 18:48 97 H 95 04/08/20 18:44 95 H 129/68 04/08/20 18:43 87 92 04/08/20 18:38 94 H 93 04/08/20 18:33 95 H 94 04/08/20 18:28 99 H 93 <Marcos Cason Jr, MD, FACOG - Last Filed: 04/09/20 07:45> Co-Signing Physician Notes Resident Physician Supervision Note: I was present with Dr. Trimble during the history and exam. I discussed the case with the resident and agree with the findings and plan as documented in the note. Any exceptions or clarifications are listed here: Diuresing well. Labs from this Am still pending. D/C Mg at 24 hours. Stopped po Labetalol after surgery, will watch BP. Will encourage ambulation after Mg off Documented By: Marcos Cason Jr, MD, FACOG Resident Activity Tracking <Miguel Trimble DO - Last Filed: 04/09/20 06:42> Resident Involvement: Resident Care Provided Care Provided: OB Delivery
[2020-04-09 07:20] LABS: Hematocrit (blood only) 25.5 % (37-47); Hemoglobin 8.8 g/dL (12.0-16.0); Mean Corpuscular Hemoglobin 31.4 pg (25-34); Mean Corpuscular Hgb Conc 34.5 g/dL (32-36); Mean Corpuscular Volume 91.1 fL (80-100); Mean Platelet Volume 10.5 fL (7.4-10.4); Platelet Count 166 K/uL (130-400); RDW Coefficient of Variation 14.4 % (11.5-14.5); RDW Standard Deviation 48.2 fL (36.4-46.3); White Blood Count 14.31 K/uL (4.8-10.8)
--- NOTE | 2020-04-09 07:33 | Anesthesiology Progress Note ---
Date of Service April 09, 2020 Anesthesia Post Procedure Vital Signs Vital Signs: Temp Pulse Pulse Resp BP BP Pulse Ox 04/09/20 07:13 97 H 147/74 H 91 04/09/20 07:08 98 H 94 04/09/20 07:03 94 H 91 04/09/20 06:58 92 H 90 04/09/20 06:53 97 H 95 04/09/20 06:48 77 89 L 04/09/20 06:43 87 89 L 04/09/20 06:38 94 H 93 04/09/20 06:33 77 91 04/09/20 06:28 74 88 L 04/09/20 06:23 78 91 04/09/20 06:20 78 88 L 04/09/20 06:18 96 H 95 04/09/20 06:15 77 88 L 04/09/20 06:13 74 145/70 H 92 04/09/20 06:10 89 88 L 04/09/20 06:08 93 H 94 04/09/20 06:05 79 87 L 04/09/20 06:03 86 92 04/09/20 06:00 18 04/09/20 05:59 86 88 L 04/09/20 05:58 83 89 L 04/09/20 05:53 88 95 04/09/20 05:48 77 89 L 04/09/20 05:45 75 88 L 04/09/20 05:43 77 91 04/09/20 05:40 76 88 L 04/09/20 05:38 78 90 04/09/20 05:34 81 87 L 04/09/20 05:33 81 90 04/09/20 05:29 86 87 L 04/09/20 05:28 76 95 04/09/20 05:23 76 92 04/09/20 05:22 83 88 L 04/09/20 05:18 86 92 04/09/20 05:17 77 87 L 04/09/20 05:13 85 138/68 90 04/09/20 05:10 75 87 L 04/09/20 05:08 91 H 94 04/09/20 05:04 83 87 L 04/09/20 05:03 91 H 94 04/09/20 05:00 18 91 04/09/20 04:58 93 H 96 04/09/20 04:56 82 87 L 04/09/20 04:53 84 91 04/09/20 04:48 83 91 04/09/20 04:45 78 88 L 04/09/20 04:43 93 H 94 04/09/20 04:38 72 92 04/09/20 04:37 79 87 L 04/09/20 04:33 87 86 L 04/09/20 04:32 81 87 L 04/09/20 04:28 86 94 04/09/20 04:25 37.3 C 20 04/09/20 04:23 94 H 93 04/09/20 04:19 96 H 141/84 H 04/09/20 04:18 81 92 04/09/20 04:13 88 94 04/09/20 04:08 75 92 04/09/20 04:03 73 94 04/09/20 04:01 75 88 L 04/09/20 04:00 18 94 04/09/20 03:58 73 94 04/09/20 03:54 81 84 L 04/09/20 03:53 78 88 L 04/09/20 03:48 78 84 L 04/09/20 03:43 80 83 L 04/09/20 03:42 81 85 L 04/09/20 03:38 72 92 04/09/20 03:33 75 93 04/09/20 03:28 94 H 96 04/09/20 03:27 77 85 L 04/09/20 03:23 82 71 L 04/09/20 03:22 79 86 L 04/09/20 03:18 81 80 L 04/09/20 03:16 79 84 L 04/09/20 03:13 73 124/60 94 04/09/20 03:10 79 85 L 04/09/20 03:08 75 92 04/09/20 03:05 78 86 L 04/09/20 03:03 75 90 04/09/20 03:00 18 90 04/09/20 02:58 78 90 04/09/20 02:53 75 92 04/09/20 02:48 76 92 04/09/20 02:43 75 93 04/09/20 02:41 75 85 L 04/09/20 02:38 74 94 04/09/20 02:33 75 91 04/09/20 02:28 81 92 04/09/20 02:23 79 92 04/09/20 02:18 78 93 04/09/20 02:13 74 124/60 92 04/09/20 02:09 76 88 L 04/09/20 02:08 77 86 L 04/09/20 02:04 81 88 L 04/09/20 02:03 82 89 L 04/09/20 02:00 18 90 04/09/20 01:59 78 82 L 04/09/20 01:58 81 87 L 04/09/20 01:54 80 87 L 04/09/20 01:53 78 91 04/09/20 01:48 80 91 04/09/20 01:43 78 91 04/09/20 01:38 79 90 04/09/20 01:37 81 86 L 04/09/20 01:33 77 91 04/09/20 01:28 76 88 L 04/09/20 01:23 78 93 04/09/20 01:22 80 87 L 04/09/20 01:18 77 88 L 04/09/20 01:15 77 88 L 04/09/20 01:13 76 119/58 L 90 04/09/20 01:10 79 88 L 04/09/20 01:08 76 90 04/09/20 01:03 74 90 04/09/20 01:00 18 90 04/09/20 00:58 80 88 L 04/09/20 00:56 78 85 L 04/09/20 00:53 92 H 96 04/09/20 00:49 77 86 L 04/09/20 00:48 77 91 04/09/20 00:43 72 87 L 04/09/20 00:40 84 88 L 04/09/20 00:38 87 94 04/09/20 00:33 78 89 L 04/09/20 00:29 78 88 L 04/09/20 00:28 80 90 04/09/20 00:23 80 89 L 04/09/20 00:22 77 88 L 04/09/20 00:18 80 90 04/09/20 00:16 80 88 L 04/09/20 00:13 79 114/63 90 04/09/20 00:11 77 88 L 04/09/20 00:08 81 87 L 04/09/20 00:06 80 86 L 04/09/20 00:03 80 85 L 04/09/20 00:01 77 88 L 04/09/20 00:00 20 90 04/08/20 23:58 77 89 L 04/08/20 23:56 78 86 L 04/08/20 23:53 75 84 L 04/08/20 23:51 76 88 L 04/08/20 23:48 75 90 04/08/20 23:45 75 87 L 04/08/20 23:43 73 91 04/08/20 23:40 72 87 L 04/08/20 23:38 76 88 L 04/08/20 23:35 75 87 L 04/08/20 23:33 75 88 L 04/08/20 23:30 78 87 L 04/08/20 23:28 92 H 93 04/08/20 23:23 87 94 04/08/20 23:22 89 124/72 04/08/20 23:18 93 H 91 04/08/20 23:13 97 H 93 04/08/20 23:12 94 H 126/76 04/08/20 23:08 95 H 92 04/08/20 23:03 88 93 04/08/20 23:00 37.2 C 89 18 124/72 91 04/08/20 22:58 81 91 04/08/20 22:53 89 91 04/08/20 22:48 92 H 96 04/08/20 22:43 94 H 94 04/08/20 22:38 82 91 04/08/20 22:37 83 87 L 04/08/20 22:33 82 92 04/08/20 22:28 82 90 04/08/20 22:23 89 94 04/08/20 22:18 92 H 93 04/08/20 22:13 73 88 L 04/08/20 22:10 74 86 L 04/08/20 22:08 84 129/66 92 04/08/20 22:03 84 89 L 04/08/20 22:00 18 96 04/08/20 21:58 86 93 04/08/20 21:56 83 88 L 04/08/20 21:53 83 89 L 04/08/20 21:51 85 88 L 04/08/20 21:48 86 92 04/08/20 21:43 88 90 04/08/20 21:38 88 93 04/08/20 21:33 90 95 04/08/20 21:28 90 94 04/08/20 21:23 93 H 94 04/08/20 21:18 96 H 94 04/08/20 21:13 82 89 L 04/08/20 21:08 93 H 93 04/08/20 21:03 95 H 95 04/08/20 21:00 91 H 20 138/70 97 04/08/20 20:58 89 91 04/08/20 20:56 87 86 L 04/08/20 20:53 92 H 93 04/08/20 20:48 96 H 95 04/08/20 20:43 97 H 93 04/08/20 20:38 92 H 91 04/08/20 20:33 98 H 91 04/08/20 20:28 100 H 96 04/08/20 20:23 94 H 90 04/08/20 20:18 89 94 04/08/20 20:13 102 H 94 04/08/20 20:08 103 H 91 04/08/20 20:06 102 H 87 L 04/08/20 20:03 96 H 92 04/08/20 19:59 18 95 04/08/20 19:58 98 H 141/74 H 95 04/08/20 19:53 96 H 93 04/08/20 19:48 90 91 04/08/20 19:43 99 H 93 04/08/20 19:38 100 H 94 04/08/20 19:33 98 H 95 04/08/20 19:28 95 H 95 04/08/20 19:23 101 H 97 04/08/20 19:18 98 H 96 04/08/20 19:13 92 H 93 04/08/20 19:08 96 H 92 04/08/20 19:04 97 H 140/74 04/08/20 19:03 99 H 96 04/08/20 19:00 37.2 C 96 H 18 92 04/08/20 18:58 94 H 93 04/08/20 18:54 86 86 L 04/08/20 18:53 89 95 04/08/20 18:48 97 H 95 04/08/20 18:44 95 H 129/68 04/08/20 18:43 87 92 04/08/20 18:38 94 H 93 04/08/20 18:33 95 H 94 04/08/20 18:28 99 H 93 04/08/20 18:23 87 93 04/08/20 18:20 89 85 L 04/08/20 18:18 84 92 04/08/20 18:13 82 91 04/08/20 18:08 90 93 04/08/20 18:03 96 H 93 04/08/20 18:01 93 H 154/75 H 04/08/20 17:58 100 H 95 04/08/20 17:53 102 H 91 04/08/20 17:50 20 95 04/08/20 17:48 100 H 94 04/08/20 17:43 95 H 95 04/08/20 17:38 100 H 95 04/08/20 17:33 98 H 94 04/08/20 17:28 94 H 94 04/08/20 17:23 92 H 91 04/08/20 17:18 94 H 94 04/08/20 17:13 96 H 95 04/08/20 17:08 96 H 94 04/08/20 17:03 96 H 93 04/08/20 16:58 100 H 97 04/08/20 16:56 86 20 156/74 H 04/08/20 16:54 77 88 L 04/08/20 16:53 92 H 94 04/08/20 16:48 83 93 04/08/20 16:45 20 95 04/08/20 16:43 89 92 04/08/20 16:38 95 H 93 04/08/20 16:33 97 H 94 04/08/20 16:28 95 H 94 04/08/20 16:26 75 88 L 04/08/20 16:23 90 94 04/08/20 16:21 76 88 L 04/08/20 16:18 79 89 L 04/08/20 16:15 76 82 L 04/08/20 16:13 92 H 90 04/08/20 16:10 77 90 04/08/20 16:08 83 82 L 04/08/20 16:05 79 90 04/08/20 16:03 88 82 L 04/08/20 16:00 84 86 L 04/08/20 15:58 95 H 92 04/08/20 15:53 99 H 94 04/08/20 15:48 103 H 94 04/08/20 15:46 96 H 152/75 H 04/08/20 15:45 20 95 04/08/20 15:43 105 H 95 04/08/20 15:38 101 H 94 04/08/20 15:33 104 H 92 04/08/20 15:28 98 H 92 04/08/20 15:23 95 H 92 04/08/20 15:18 100 H 95 04/08/20 15:13 101 H 93 04/08/20 15:10 104 H 86 L 04/08/20 15:08 105 H 96 04/08/20 15:03 99 H 94 04/08/20 14:58 104 H 90 04/08/20 14:56 104 H 90 04/08/20 14:53 105 H 93 04/08/20 14:50 94 H 89 L 04/08/20 14:48 97 H 94 04/08/20 14:47 90 18 148/70 H 04/08/20 14:45 16 94 04/08/20 14:43 87 95 04/08/20 14:39 83 89 L 04/08/20 14:38 87 91 04/08/20 14:33 89 91 04/08/20 14:28 86 93 04/08/20 14:23 81 83 L 04/08/20 14:18 91 H 96 04/08/20 14:13 90 94 04/08/20 14:08 92 H 97 04/08/20 14:03 93 H 94 04/08/20 13:58 96 H 96 04/08/20 13:54 90 89 L 04/08/20 13:53 90 92 04/08/20 13:48 88 94 04/08/20 13:45 37.4 C 88 20 157/76 H 90 04/08/20 13:43 91 H 93 04/08/20 13:38 97 H 92 04/08/20 13:33 92 H 94 04/08/20 13:28 95 H 94 04/08/20 13:23 87 93 04/08/20 13:18 88 94 04/08/20 13:15 85 89 L 04/08/20 13:13 86 95 04/08/20 13:08 90 95 04/08/20 13:03 85 96 04/08/20 12:58 84 93 04/08/20 12:53 86 94 04/08/20 12:48 90 93 04/08/20 12:46 86 88 L 04/08/20 12:44 37.8 C H 20 04/08/20 12:43 85 92 04/08/20 12:38 91 H 92 04/08/20 12:34 83 138/69 04/08/20 12:33 85 95 04/08/20 12:28 87 95 04/08/20 12:24 88 142/75 H 04/08/20 12:23 85 93 04/08/20 12:18 85 95 04/08/20 12:14 81 20 145/70 H 04/08/20 12:13 85 95 04/08/20 12:08 85 93 04/08/20 12:04 89 141/67 H 04/08/20 12:03 88 94 04/08/20 11:58 88 97 04/08/20 11:54 85 141/67 H 04/08/20 11:53 84 94 04/08/20 11:48 88 97 04/08/20 11:45 20 04/08/20 11:44 82 20 149/70 H 04/08/20 11:43 84 97 04/08/20 11:38 85 95 04/08/20 11:35 20 04/08/20 11:34 78 147/81 H 04/08/20 11:33 80 96 04/08/20 11:28 83 95 04/08/20 11:24 78 144/73 H 04/08/20 11:23 87 20 96 04/08/20 11:18 84 95 04/08/20 11:16 86 145/72 H 04/08/20 11:14 90 20 196/73 H 04/08/20 11:13 92 H 95 04/08/20 11:08 82 95 04/08/20 11:04 81 20 143/92 H 04/08/20 11:03 79 92 04/08/20 10:59 73 90 04/08/20 10:58 76 93 04/08/20 10:54 79 16 126/66 04/08/20 10:53 80 96 04/08/20 10:50 59 L 90 04/08/20 10:48 73 91 04/08/20 10:45 68 88 L 04/08/20 10:44 37.0 C 75 79 16 142/68 H 126/66 94 04/08/20 10:43 69 85 L 04/08/20 10:39 76 89 L 04/08/20 10:38 76 92 04/08/20 10:34 84 126/68 94 04/08/20 10:33 85 97 04/08/20 09:22 82 97 04/08/20 09:20 85 140/75 04/08/20 09:17 82 95 04/08/20 09:12 81 95 04/08/20 09:07 86 96 04/08/20 09:05 87 138/72 04/08/20 09:02 88 97 04/08/20 08:57 89 98 04/08/20 08:52 87 94 04/08/20 08:47 89 95 04/08/20 08:42 89 98 04/08/20 08:38 79 88 L 04/08/20 08:37 72 98 04/08/20 08:36 72 111/58 L 04/08/20 08:33 76 87 L 04/08/20 08:32 83 97 04/08/20 08:27 88 98 04/08/20 08:24 82 89 L 04/08/20 08:22 83 95 04/08/20 08:20 93 H 145/79 H 04/08/20 08:17 85 97 04/08/20 08:12 81 94 04/08/20 08:07 82 94 04/08/20 08:05 88 143/74 H 04/08/20 08:02 78 91 04/08/20 07:57 80 90 04/08/20 07:54 80 89 L 04/08/20 07:52 86 89 L 04/08/20 07:50 81 161/83 H 04/08/20 07:48 83 88 L 04/08/20 07:47 79 90 04/08/20 07:42 98 H 97 04/08/20 07:37 93 H 97 04/08/20 07:35 94 H 146/72 H Pain Intensity Back: Pain Intensity: 0 Transfer of Care Handoff Completed per policy Notes Mental Status: alert / awake / arousable Patient Amnestic to Procedure: Yes Nausea / Vomiting: adequately controlled Pain: adequately controlled Airway Patency, RR, SpO2: stable & adequate BP & HR: stable & adequate Hydration State: stable & adequate Anesthetic Complications: no major complications apparent
[2020-04-09 07:59] LABS: Alanine Aminotransferase 10 U/L (12-78); Albumin Level 1.8 gm/dl (3.4-5.0); Alkaline Phosphatase 39 U/L (45-117); Aspartate Aminotransferase 14 U/L (15-37); Bilirubin Direct < 0.1 mg/dl (0-0.2); Bilirubin,Total 0.3 mg/dl (0.2-1)
[2020-04-09] MEDS: FERROUS SULFATE 325 MG TAB PO SCH (09:00)
[2020-04-09] MEDS: PRENATAL VITAMIN 1 TAB PO SCH (09:00)
[2020-04-09] MEDS: IBUPROFEN 600 MG TAB PO PRN ×2 (10:14→19:54)
[2020-04-09] MEDS: OXYCODONE/ACETAMINOPHEN 5mg/325mg TAB PO PRN ×2 (10:14→19:53)
[2020-04-09 11:28] LABS: Hematocrit (blood only) 25.6 % (37-47); Hemoglobin 8.7 g/dL (12.0-16.0); Mean Corpuscular Hemoglobin 31.2 pg (25-34); Mean Corpuscular Volume 91.8 fL (80-100); Mean Platelet Volume 11.2 fL (7.4-10.4); Platelet Count 180 K/uL (130-400); RDW Coefficient of Variation 14.4 % (11.5-14.5); RDW Standard Deviation 47.9 fL (36.4-46.3); Red Blood Count 2.79 M/uL (4.2-5.4); White Blood Count 15.28 K/uL (4.8-10.8)
[2020-04-09] MEDS: MAGNESIUM SULFATE / WTR 40 GM/1,000 ML BAG IV SCH (11:30)
[2020-04-09 17:06] LABS: Hematocrit (blood only) 26.7 % (37-47); Hemoglobin 8.6 g/dL (12.0-16.0); Mean Corpuscular Hemoglobin 30.1 pg (25-34); Mean Corpuscular Hgb Conc 32.2 g/dL (32-36); Mean Corpuscular Volume 93.4 fL (80-100); Mean Platelet Volume 10.7 fL (7.4-10.4); Platelet Count 190 K/uL (130-400); RDW Coefficient of Variation 14.5 % (11.5-14.5); RDW Standard Deviation 49.6 fL (36.4-46.3); Red Blood Count 2.86 M/uL (4.2-5.4); White Blood Count 15.32 K/uL (4.8-10.8)
[2020-04-09] MEDS: SENNA 8.6 MG TAB PO SCH ×2 (19:10→20:47)
[2020-04-09] MEDS: MAGNESIUM HYDROXIDE SUSP 30 ML UDC PO SCH ×2 (19:10→20:47)
[2020-04-09] MEDS ORDERED: OXYTOCIN 30 UNITS/500 ML BAG IV PRN (21:19)
--- NOTE | 2020-04-10 06:44 | Obstetrical Progress Note ---
Date of Service <Miguel Martinezjulio - Last Filed: 04/10/20 06:44> April 10, 2020 Assessment & Plan <Miguel Martinezjulio - Last Filed: 04/10/20 06:44> (1) Preeclampsia: -POD#2 -Vitals reviewed, continues to have higher pressures in the 140's/70's, cu rrently at 150/80. - GBS -, Blood Type O+ - Clinically stable. - Feels well today. Eating well, voiding well. - IV Mag for severe preeclampsia, complete at 10:00AM yesterday, patient has noted significant improvement in discomfort since discontinuation. - Continues to deny any headache, RUQ pain, increased swelling. - Pain well controlled. - Routine post care - After discharge will have [address] Kamla Hamilton #:: 2 Subjective <Miguel Martinezjulio - Last Filed: 04/10/20 06:44> Ambulation: ambulating normally Voiding: no voiding problems Passing Gas:: Yes Diet Tolerance:: regular diet Lochia:: Small Feeding Type:: breast feeding (and bottle feeding ) Current Pain Level(1-10): 1 (improved with analgesics) Patient is a 34 POD#2. Patient states that she is doing well this morning and that her pain is well controlled. She has no complaints at this point in time. She notes that she feels well and has some interest in discharge today. Notes she feels significantly better since the discontinuation of the magnesium. Constitutional: no fever and no chills Respiratory: no cough, no dyspnea and no wheezing Cardiovascular: + edema; no chest pain, no dyspnea, no dyspnea on exertion and no calf pain Breast: no breast pain Gastrointestinal: + abdominal pain (diffuse, but primarily in the lower quadrants); no nausea and no vomiting Genitourinary (female): no dysuria Neurologic: no headache(s) Physical Exam <Miguel MartinezDO Duc kim Last Filed: 04/10/20 06:44> Constitutional WD/WN, vitals as above Respiratory normal respiratory effort, lungs clear to auscultation Cardiovascular Rate/Rhythm: regular rate and regular rhythm Heart Sounds: normal S1 and normal S2; no click, no gallop, no murmur and no cardiac rub Extremities: no calf tenderness and no edema Gastrointestinal (Abdomen) Inspection/Auscultation: abdomen normal to inspection, normal bowel sounds and + abdominal surgical incision (Clean and Dry, No Pus noted. ) Percussion/Palpation: abdomen soft; abdomen nontender Neurologic patellar DTR's 2+ bilat, sensation intact Genitourinary OB Exam Abdomen: + fundal height Fundus: + firm and + relation to umbilicus (1cm below ); not tender and not boggy Results & Data <Miguel Trimble DO - Last Filed: 04/10/20 06:44> Vital Signs (Past 12 Hours) Vital Signs Temp Pulse Resp BP 04/09/20 23:50 36.8 C 87 18 150/80 H 04/09/20 19:55 37.0 C 93 H 20 <Kasia Law MD, FACOG - Last Filed: 04/10/20 07:16> Co-Signing Physician Notes Resident Physician Supervision Note: I interviewed and examined the patient. Discussed with Dr. Trimble and agree with findings and plan as documented in the note. Any exceptions or clarifications are listed here: Doing well. Pressures are elevated but not severe. Patient has no s/s of PET. Would like to watch through the day today and see how her pressures are. Monitor closely. Documented By: Kasia Law MD, FACOG Resident Activity Tracking <Miguel Trimble DO - Last Filed: 04/10/20 06:44> Resident Involvement: Resident Care Provided Care Provided: OB Delivery
[2020-04-10 06:57] LABS: Hematocrit (blood only) 24.5 % (37-47); Hemoglobin 8.3 g/dL (12.0-16.0)
[2020-04-10] MEDS: OXYCODONE/ACETAMINOPHEN 5mg/325mg TAB PO PRN ×2 (07:36→12:57)
[2020-04-10] MEDS: IBUPROFEN 600 MG TAB PO PRN ×2 (07:36→12:57)
[2020-04-10] MEDS: FERROUS SULFATE 325 MG TAB PO SCH (07:38)
[2020-04-10] MEDS: PRENATAL VITAMIN 1 TAB PO SCH (07:38)
[2020-04-10] MEDS: FAMOTIDINE 20 MG in SYRINGE 3 ML IV SCH (10:20)
[2020-04-10] MEDS ORDERED: FAMOTIDINE 20 MG TAB PO SCH (21:00)
--- NOTE | 2020-04-13 07:52 | Discharge Summary ---
Date of Service April 13, 2020 Admission HPI Per Admitting Provider Patient is a 34 at 36w 3d by LMP 07/26/19 who was admitted from the office for preeclampsia with severe features. The patient had been diagnosed with mild preeclampsia approximately 3 weeks prior to admission. She has been followed per the preeclamptic protocol. Patient was seen in the office on the day of admission for a routine obstetrical visit and was noted to have markedly elevated blood pressures meeting severe criteria. The patient was sent to labor and delivery for further evaluation. The patient's course was also remarkable for gestational diabetes diagnosed to 28 weeks gestational age. All abdominal circumferences have been less than the 75th percentile and she has been followed with diet modification for her diabetes only. The patient also has a history of a PFO. She had a feta l echocardiogram during this which was within normal limits. Laboratory values for this show blood type of O+, antibody negative, rubella immune, hepatitis B negative, she had negative cell free DNA screening, she had negative cystic fibrosis and SMA screening, and a negative third trimester beta strep culture. Discharge Data Consultations 04/06/20 12:59 Consult Anesthesiology Stat Procedures Performed Operation Date: 04/08/20 08:55 Actual Procedures p Section in LD(Bilateral) - Marcos Cason Jr, MD, [facility] (1) Preeclampsia: The patient was evaluated on labor and delivery and was felt to have preeclampsia with severe features. Laboratory values were within normal limits for preeclampsia, but she had markedly elevated blood pressures. This required labetalol for control throughout her hospitalization. Because of the severe preeclampsia the patient was started on magnesium prophylaxis. The patient was initially started on Pitocin per induction protocol. The patient was titrated up and had been on the Pitocin for approximately 14 hours with minimal cervical change. After 14 hours of Pitocin with no cervical change the Pitocin was temporarily discontinued and the patient was allowed to eat. The patient was then given Cytotec 50 mcg p.o. She began to develop a labor pattern and Pitocin was reinitiated. Anesthesia was consulted and an epidural was placed. The patient made slow progress despite high doses of the Pitocin. The patient had an episode of magnesium toxicity with a mag level of 9.0. She had lost her reflexes. Magnesium was temporarily discontinued. Magnesium came back down to a therapeutic level of 5 and the patient's reflexes returned. Delivering physician assumed care for the patient on the morning of the 08 April. At this point the patient was 48 hours into her induction. She had had no cervical change for 12 hours. The patient was remote from delivery. Discussion with the patient and her of a diagnosis of failure to progress in light of the induction pattern and recommendation for section. The patient consented and the permit was signed. Operative findings showed a viable male with Apgars of 6, 6, and 9 and a weight of 6 pounds 10 ounces. Arterial cord pH of 7.31, venous cord pH of 7.37. Normal-appearing tubes and ovaries bilaterally. Postoperatively the patient did well. The magnesium was continued for 24 hours postoperatively and magnesium levels were checked every 6 hours. The patient had been maintained on p.o. labetalol antenatally, this was discontinued after delivery. Over her 2-day postoperative course in the hospital the patient's blood pressure slowly increased but did not reach levels consistent of a need for treatment. At the time of discharge her blood pressure was 157/91. The patient requested discharge on the second postoperative day. She was given the prescriptions for the medications as listed as above. She will follow-up in the office in 72 hours for a postoperative blood pressure check, but as always she was instructed to call with any questions problems or difficulties. Coding Level of Care Code None Diagnoses Preeclampsia O14.90
--- NOTE | 2020-04-15 09:31 | Anesthesiology Progress Note ---
Date of Service April 15, 2020 Anesthesia Post Procedure Pain Intensity Back: Pain Intensity: 1 Transfer of Care Handoff Completed per policy Notes Mental Status: alert / awake / arousable Patient Amnestic to Procedure: Yes Nausea / Vomiting: adequately controlled Pain: adequately controlled Airway Patency, RR, SpO2: stable & adequate BP & HR: stable & adequate Hydration State: stable & adequate Anesthetic Complications: no major complications apparent
== END 2020-04-10 19:20 | disposition home or self-care (01) | DRG 788 ==
LOC: OPB 12:21 → 4S1 12:24 → 4S2 04-09 05:25 → 4S1 04-09 05:50 → 4S2 04-09 10:50

== ENCOUNTER 2021-05-03 09:53 | Inpatient (IN) ==
[2021-05-03] MEDS ORDERED: SODIUM CHLORIDE 0.9% 1000ML 1,000 ML IV ONE ×2 (11:26→12:59)
[2021-05-03] MEDS ORDERED: KETOROLAC TROMETHAMINE 15 MG/ML VIAL IV STA ×2 (11:26→12:57)
[2021-05-03] MEDS ORDERED: ACETAMINOPHEN 1,000 MG/100 ML VIAL IV STA (11:26)
[2021-05-03] MEDS ORDERED: ONDANSETRON INJ 2 MG/ML 2 ML VIAL IV STA (11:29)
[2021-05-03 11:37] LABS: Basophils # (auto) 0.01 K/uL (0-0.2); Basophils % (auto) 0.2 %; Eosinophils # (auto) 0.05 K/uL (0-0.5); Hematocrit (blood only) 41.3 % (37-47); Hemoglobin 14.5 g/dL (12.0-16.0); Immature Granulocytes # (auto) 0.01 K/uL (0.00-0.02); Immature Granulocytes % (auto) 0.2 %; Lymphocytes # (auto) 1.19 K/uL (1.2-3.4); Lymphocytes % (auto) 23.1 %; Mean Corpuscular Hgb Conc 35.1 g/dL (32-36); Mean Corpuscular Volume 88.4 fL (80-100); Mean Platelet Volume 11.1 fL (7.4-10.4); Monocytes # (auto) 0.74 K/uL (0.11-0.59); Monocytes % (auto) 14.3 %; Neutrophils # (auto) 3.16 K/uL (1.4-6.5); Neutrophils % (auto) 61.2 %; Platelet Count 180 K/uL (130-400); RDW Coefficient of Variation 12.5 % (11.5-14.5); RDW Standard Deviation 39.7 fL (36.4-46.3); Red Blood Count 4.67 M/uL (4.2-5.4); White Blood Count 5.16 K/uL (4.8-10.8)
--- NOTE | 2021-05-03 11:38 | Emergency Department Note ---
Impression & Plan Hydronephrosis, Renal calculi, Acute left flank pain ED Provider Note NAME: CHRISTINE TREJO AGE: 35 SEX: F ARRIVES VIA: Walk-In INFORMANT: Patient, ED PROVIDER(S): Clarence Ram MD CHIEF COMPLAINT: Left flank pain. PLAN: Disposition: Admit MEDICAL DECISION MAKING: The patient is a pleasant 35-year-old woman with a past medical history of kidney stones remotely, recent history of SAB in first trimester in December who presents emerge department with acute onset left flank pain with associated nausea that began this morning which she rates as a 9 out of 10 and has been constant. She denies taking any medications prior to arrival. She denies any blood in her urine though admits it is difficult to tell given she is currently on her menstrual cycle. Otherwise denies any fevers, diarrhea, cough, congestion. Both her and her did have COVID-19 in January when they were in between there COVID-19 immunization series but have since completed their series thereafter. On arrival the patient is in no acute distress, afebrile stable vital signs. Abdomen is benign and no particular flank tenderness on exam. WBC, H/H and platelets within normal limits. Chemistry without metabolic acidosis. Electrolytes LFTs unremarkable. Lipase not elevated. hCG was negative. UA without convincing evidence of infection as epithelial cells present. COVID-[address] of the abdomen pelvis demonstrates 14 mm obstructing left UPJ calculus with moderate hydronephrosis. On evaluation patient did feel improved after hydration, IV APAP, Toradol and IV morphine as well as Zofran and Flomax. However upon reevaluation subsequently she did report return of pain and so given the poor likelihood of spontaneous passage of her large stone she did agree with plan for admission for pain control. Case was discussed with Chivo Cisneros with Dr. Kevin Waldron hospitalist who will evaluate the patient for admission. Triage Nursing notes reviewed and agree them. Prior medical records reviewed Vital Signs: reviewed and remarkable for no significant abnormalities Differential diagnosis: Renal colic, UTI, appendicitis, diverticulitis, mesenteric ischemia, aortic pathology, infections, inflammatory bowel disease, PUD, biliary pathology, as well as other pathologies. ER treatment provided: See below. Diagnostics interpreted by me: Cardiac Monitoring: An order for continuous cardiac monitoring was placed and demonstrated normal sinus rhythm, 72 bpm, no ectopy. Laboratory studies: See below Imaging studies: See below Consultation(s): Case was discussed with Chivo Cisneros with Dr. Kevin Waldron hospitalist who will evaluate the patient for admission. HPI: The patient is a pleasant 35-year-old woman with a past medical history of kidney stones remotely, recent history of SAB in first trimester in December who presents emerge department with acute onset left flank pain with associated nausea that began this morning which she rates as a 9 out of 10 and has been constant. She denies taking any medications prior to arrival. She denies any blood in her urine though admits it is difficult to tell given she is currently on her menstrual cycle. Otherwise denies any fevers, diarrhea, cough, congestion. Both her and her did have COVID-19 in January when they were in between there COVID-19 immunization series but have since completed their series thereafter. ROS: See above HPI for pertinent positives & negatives. A total of 10 systems reviewed and were otherwise negative. PAST MEDICAL HISTORY:See Below PAST SURGICAL HISTORY:See Below FAMILY HISTORY:See Below SOCIAL HISTORY:See Below HOME MEDICATIONS:See Below ALLERGIES:See Below VITALS:See Below PHYSICAL EXAMINATION: GENERAL: Awake, alert, well-appearing, in no distress HENT: Normocephalic, atraumatic. Oropharynx unremarkable. EYES: Normal conjunctiva. Sclera non-icteric. NECK: Supple. No nuchal rigidity. FROM. No JVD. RESPIRATORY: Clear to auscultation. CARDIAC: Regular rate, normal rhythm. Extremities warm and well perfused. Pulses equal. ABDOMEN: Soft, non-distended. No tenderness to palpation. No rebound or guarding. No masses. RECTAL: Deferred. MUSCULOSKELETAL: Chest examination reveals no tenderness. The back is symmetrical on inspection without obvious abnormality. There is no CVA tenderne ss to palpation. No joint edema. LOWER EXTREMITIES: Calves are equal size bilaterally and non-tender. No edema. No discoloration. NEURO: Normal sensorium. No sensory or motor deficits noted. SKIN: No rash or jaundice noted. Clarence Ram MD Past Med/Surg History Medical History Elderly primigravida, antepartum Gestational diabetes mellitus (GDM) affecting , antepartum History of kidney stones History of varicella Lithoptysis Obese PFO (patent foramen ovale) Severe pre-eclampsia, Spontaneous in first trimester Surgical History H/O lithotripsy History of renal stent S/P dilation and curettage S/P wisdom tooth extraction Family History Mother Diabetes Father Dyslipidemia Hypertension Social History Smoking Status: Never smoker Second Hand Exposure: No; Hx Alcohol Use: No (rarely) Hx Substance Use: No Preferred Language: Kinyarwanda Communication Ability: Effective Enterostomal Nurse Required: No Beliefs That Will Affect Care: None marital status: marital status details: William Trejo ([phone] Current Living Situation: Spouse Current Living Situation Comment: lives with spouse and son, 1dog current occupational status: employed current occupation: [employer] Feels Safe at Home: Yes Assistive Devices: None Allergies Allergies Allergy/AdvReac Type Severity Reaction Status Date / Time Sulfa (Sulfonamide Allergy Intermediate RASH - Verified 05/03/21 12:13 Antibiotics) "SULFA DRUGS" Home Meds Home Medications Medication Instructions Recorded Confirmed No Known Home Medications 05/03/21 05/03/21 Results & Data (ED) Vital Signs Vital Signs - 24 hr 05/03/21 09:58 05/03/21 11:25 05/03/21 11:27 Temperature 37.1 C Temperature Source Temporal Artery Scan Pulse Rate 72 Pulse Rate [Right Finger] 68 Pulse Rhythm Regular Pulse Rhythm [Right Finger] Regular Pulse Strength Normal Pulse Strength [Right Finger] Normal Respiratory Rate 16 18 Respiratory Effort / Characteristics Non-Labored Non-Labored Respiratory Depth Normal Normal Respiratory Pattern Regular Regular Blood Pressure 155/106 H Blood Pressure [Left Arm] 158/99 H Blood Pressure Mean 122 Blood Pressure Mean [Left Arm] 118 Blood Pressure Position Sitting Blood Pressure Position [Left Arm] Sitting Pulse Oximetry 99 100 100 Oxygen Delivery Method Room Air Room Air Room Air Sepsis Recent Fever Within 48 Hours No Sepsis New/Unexplained Change in Mental Status N/A Sepsis Action Taken by Nursing No Action Required 05/03/21 12:41 05/03/21 14:01 05/03/21 16:40 Temperature Temperature Source Pulse Rate Pulse Rate [Right Finger] 77 72 72 Pulse Rhythm Pulse Rhythm [Right Finger] Regular Regular Pulse Strength Pulse Strength [Right Finger] Normal Normal Respiratory Rate 20 20 18 Respiratory Effort / Characteristics Non-Labored Spontaneous Non-Labored Spontaneous Respiratory Depth Normal Normal Respiratory Pattern Regular Regular Blood Pressure Blood Pressure [Left Arm] 121/81 124/87 121/89 Blood Pressure Mean Blood Pressure Mean [Left Arm] 94 99 99 Blood Pressure Position Blood Pressure Position [Left Arm] Sitting Sitting Pulse Oximetry 98 99 99 Oxygen Delivery Method Room Air Room Air Room Air Sepsis Recent Fever Within 48 Hours Sepsis New/Unexplained Change in Mental Status Sepsis Action Taken by Nursing Laboratory Data Attestation: I reviewed the patient's lab results. Result diagrams: 05/03/21 11:22 05/03/21 11: Lab Results 05/03/21 05/03/21 05/03/21 Range/Units 11:22 11:22 11:22 WBC 5.16 (4.8-10.8) K/uL RBC 4.67 (4.2-5.4) M/uL Hgb 14.5 (12.0-16.0) g/dL Hct 41.3 (37-47) % MCV 88.4 (80-100) fL MCH 31.0 (25-34) pg MCHC 35.1 (32-36) g/dL RDW Std Deviation 39.7 (36.4-46.3) fL RDW Coeff of Alejandro 12.5 (11.5-14.5) % Plt Count 180 (130-400) K/uL MPV 11.1 H (7.4-10.4) fL Immature Gran % (Auto) 0.2 % Neut % (Auto) 61.2 % Lymph % (Auto) 23.1 % [place] % (Auto) 14.3 % Eos % (Auto) 1.0 % Baso % (Auto) 0.2 % Neut # (Auto) 3.16 (1.4-6.5) K/uL Lymph # (Auto) 1.19 L (1.2-3.4) K/uL [place] # (Auto) 0.74 H (0.11-0.59) K/uL Eos # (Auto) 0.05 (0-0.5) K/uL Baso # (Auto) 0.01 (0-0.2) K/uL Immature Gran # (Auto) 0.01 (0.00-0.02) K/uL Sodium 141 (136-145) mmol/L Potassium 3.7 (3.5-5.1) mmol/L Chloride 108 H (98-107) mmol/L Carbon Dioxide 26 (21-32) mmol/L Anion Gap 7.0 (3-11) BUN 15 (7-18) mg/dl Creatinine 0.81 (0.6-1.2) mg/dl Est Cr Clr Drug Dosing 93.8 ml/min Est GFR ( Amer) 107.5 ml/min Est GFR (Non-Af Amer) 92.8 ml/min BUN/Creatinine Ratio 18.7 (10-20) Glucose 88 (70-99) mg/dl Calcium 9.0 (8.5-10.1) mg/dl Total Bilirubin 0.4 (0.2-1) mg/dl AST 19 (15-37) U/L ALT 22 (12-78) U/L Alkaline Phosphatase 66 (45-117) U/L Total Protein 7.4 (6.4-8.2) gm/dl Albumin 3.9 (3.4-5.0) gm/dl Globulin 3.5 (2.5-4.0) gm/dl Albumin/Globulin Ratio 1.1 (0.9-2) Lipase 185 (73-393) U/L HCG, Qual Negative (Negative) Specimen Hemolysis Urine Color Urine Appearance (Clear) Urine pH (4.5-7.5) Ur Specific [place] (1.000-1.030) Urine Protein (Negative) Urine Glucose (UA) (Negative) Urine Ketones (Negative) Urine Blood (Negative) Urine Nitrite (Negative) Urine Bilirubin (Negative) Urine Urobilinogen (Negative) Ur Leukocyte Esterase (Negative) Urine WBC (Auto) (0-5) /hpf Urine RBC (Auto) (0-4) /hpf U Hyaline Cast (Auto) (0-5) /lpf U Epithel Cells (Auto) (0-5) /lpf Urine Bacteria (Auto) (Negative) COVID-19 Eval Order SARS-CoV-2 (PCR) (Negative) 05/03/21 05/03/21 05/03/21 Range/Units 11:22 14:44 14:44 WBC (4.8-10.8) K/uL RBC (4.2-5.4) M/uL Hgb (12.0-16.0) g/dL Hct (37-47) % MCV (80-100) fL MCH (25-34) pg MCHC (32-36) g/dL RDW Std Deviation (36.4-46.3) fL RDW Coeff of Alejandro (11.5-14.5) % Plt Count (130-400) K/uL MPV (7.4-10.4) fL Immature Gran % (Auto) % Neut % (Auto) % Lymph % (Auto) % [place] % (Auto) % Eos % (Auto) % Baso % (Auto) % Neut # (Auto) (1.4-6.5) K/uL Lymph # (Auto) (1.2-3.4) K/uL [place] # (Auto) (0.11-0.59) K/uL Eos # (Auto) (0-0.5) K/uL Baso # (Auto) (0-0.2) K/uL Immature Gran # (Auto) (0.00-0.02) K/uL Sodium (136-145) mmol/L Potassium (3.5-5.1) mmol/L Chloride (98-107) mmol/L Carbon Dioxide (21-32) mmol/L Anion Gap (3-11) BUN (7-18) mg/dl Creatinine (0.6-1.2) mg/dl Est Cr Clr Drug Dosing ml/min Est GFR ( Amer) ml/min Est GFR (Non-Af Amer) ml/min BUN/Creatinine Ratio (10-20) Glucose (70-99) mg/dl Calcium (8.5-10.1) mg/dl Total Bilirubin (0.2-1) mg/dl AST (15-37) U/L ALT (12-78) U/L Alkaline Phosphatase (45-117) U/L Total Protein (6.4-8.2) gm/dl Albumin (3.4-5.0) gm/dl Globulin (2.5-4.0) gm/dl Albumin/Globulin Ratio (0.9-2) Lipase (73-393) U/L HCG, Qual (Negative) Specimen Hemolysis Urine Color [place] Urine Appearance Clear (Clear) Urine pH 6.0 (4.5-7.5) Ur Specific [place] 1.006 (1.000-1.030) Urine Protein Trace H (Negative) Urine Glucose (UA) Negative (Negative) Urine Ketones Negative (Negative) Urine Blood 3+ H (Negative) Urine Nitrite Negative (Negative) Urine Bilirubin Negative (Negative) Urine Urobilinogen Negative (Negative) Ur Leukocyte Esterase Trace H (Negative) Urine WBC (Auto) 1-5 (0-5) /hpf Urine RBC (Auto) >30 H (0-4) /hpf U Hyaline Cast (Auto) 1-5 (0-5) /lpf U Epithel Cells (Auto) >30 H (0-5) /lpf Urine Bacteria (Auto) Negative (Negative) COVID-19 Eval Order Covid19 at [facility] SARS-CoV-2 (PCR) NEGATIVE (Negative) Administered Medications Discontinued Medications Sodium Chloride (Nss 1000ml) 1,000 mls @ 999 mls/hr IV .Q1H1M ONE Stop: 05/03/21 12:26 Last Infusion: 05/03/21 14:48 Dose: 0 mls/hr Documented by: [id number] Admin: 05/03/21 11:47 Dose: 999 mls/hr Documented by: [id number] Acetaminophen (Ofirmev) 1,000 mg in 100 mls @ 400 mls/hr IV NOW STA Stop: 05/03/21 11:40 Last Infusion: 05/03/21 12:02 Dose: 0 mls/hr Documented by: [id number] Admin: 05/03/21 11:47 Dose: 400 mls/hr Documented by: [id number] Prochlorperazine (Compazine) 2 mls @ 1 mls/min IV ONE ONE Stop: 05/03/21 12:58 Last Admin: 05/03/21 13:06 Dose: 1 mls/min Documented by: [id number] Sodium Chloride (Nss 1000ml) 1,000 mls @ 999 mls/hr IV .Q1H1M ONE Stop: 05/03/21 13:59 Last Infusion: 05/03/21 14:07 Dose: 0 mls/hr Documented by: [id number] Admin: 05/03/21 13:06 Dose: 999 mls/hr Documented by: [id number] Ioversol (Optiray 320 100ml) 95 ml IV ONCE ONE Stop: 05/03/21 12:35 Last Admin: 05/03/21 12:35 Dose: 95 ml Documented by: [id number] Ketorolac Tromethamine (Ketorolac Tromethamine 15 Mg/Ml Vial) 15 mg IV NOW STA Stop: 05/03/21 11:27 Last Admin: 05/03/21 11:47 Dose: 15 mg Documented by: [id number] Ketorolac Tromethamine (Ketorolac Tromethamine 15 Mg/Ml Vial) 15 mg IV NOW STA Stop: 05/03/21 12:58 Last Admin: 05/03/21 13:06 Dose: 15 mg Documented by: [id number] Morphine Sulfate (Morphine Sulfate 10 Mg/Ml Carp/Vial) 8 mg IV NOW STA Stop: 05/03/21 12:58 Last Admin: 05/03/21 13:06 Dose: 8 mg Documented by: [id number] Ondansetron HCl (Ondansetron Inj 2 Mg/Ml 2 Ml Vial) 4 mg IV NOW STA Stop: 05/03/21 11:30 Last Admin: 05/03/21 11:47 Dose: 4 mg Documented by: [id number] Ondansetron HCl (Ondansetron Inj 2 Mg/Ml 2 Ml Vial) Confirm Administered Dose 4 mg .ROUTE .STK-MED ONE Stop: 05/03/21 16:36 Last Admin: 05/03/21 16:40 Dose: 4 mg Documented by: [id number] Tamsulosin HCl (Tamsulosin Hcl 0.4 Mg Cap) 0.4 mg PO NOW ONE Stop: 05/03/21 12:58 Last Admin: 05/03/21 13:06 Dose: 0.4 mg Documented by: [id number] Tamsulosin HCl (Tamsulosin Hcl 0.4 Mg Cap) Confirm Administered Dose 0.4 mg .ROUTE .STK-MED ONE Stop: 05/03/21 16:39 Last Admin: 05/03/21 16:40 Dose: 0.4 mg Documented by: [id number] Imaging Data Radiologist's Impression: Abdomen/Pelvis CT 05/03/21 11:26 CT SCAN OF THE ABDOMEN AND PELVIS WITH IV CONTRAST CLINICAL HISTORY: Left flank pain. COMPARISON STUDY: Abdominal CT dated 01/20/2007. TECHNIQUE: Following the IV administration of 95 cc of Optiray 320, CT scan of the abdomen and pelvis is performed from the lung bases to the proximal femora. Images are reviewed in the axial, sagittal, and coronal planes. IV contrast was administered without complication. A dose lowering technique was utilized adhering to the principles of ALARA. CT DOSE: 481.24 mGy.cm FINDINGS: Lung bases: The heart is normal in size and without pericardial effusion. The lung bases are clear. Liver: The contrast-enhanced liver is normal in size, contour, and attenuation. There is no intrahepatic biliary ductal dilatation. The hepatic veins and portal veins are patent. Gallbladder: Unremarkable. Spleen: Normal in size and attenuation. Pancreas: Unremarkable. Adrenal glands: Unremarkable. Kidneys: The left kidney is mildly enlarged and edematous with perinephric stranding. There is heterogeneously diminished enhancement of the left kidney as compared to the right. There is a 14 mm obstructing calculus at the left ureteropelvic junction seen on image #182. This causes moderate left-sided hydronephrosis. There are at least 5 additional nonobstructing left renal calculi which measure up to 4 mm. A 6 mm nonobstructing calculus is seen in the right lower pole. There is no right-sided ureteral stone or hydronephrosis. Abdominal vasculature: The abdominal aorta is normal in course and caliber. Bowel: There is no bowel obstruction. The appendix is well-visualized and normal. Peritoneum: There is no intraperitoneal free air or abdominal ascites. Lymphadenopathy: None. Pelvic viscera: The bladder, uterus, and adnexa are normal as visualized noting bilateral ovarian follicles. Skeletal structures: No lytic or blastic lesions are seen. IMPRESSION: 1. There is a 14 mm obstructing calculus at the left ureteropelvic junction. This causes moderate left hydronephrosis. 2. Additional bilateral nonobstructing renal calculi as above. ACT 112: Negative or not required by law. Electronically signed by: Vick Soto M.D. 05/03/2021 1:04 PM Discharge Plan Visit Data Chief Complaint: Flank Pain Stated Complaint: KIDNEY STONE ED Provider: Clarence Ram Discharge Problem: Hydronephrosis, Renal calculi, Acute left flank pain Discharge Instructions Interventions: ED Discharge Assessment Last Done: 05/03/21 18:50 Forms Stand Alone Forms: [facility] Prescriptions Prescriptions: No Action No Known Home Medications RF: 0 Referrals Referrals: Ana Courtney DO [Primary Care Provider] - Discharge Problem: Hydronephrosis Qualifiers: Hydronephrosis type: with ureteropelvic junction obstruction Qualified Code(s): Q62.11 - Congenital occlusion of ureteropelvic junction
[2021-05-03 11:52] LABS: Pregnancy Test, Serum Negative (Negative)
[2021-05-03 11:56] LABS: Albumin Level 3.9 gm/dl (3.4-5.0); BUN Creatinine Ratio 18.7 (10-20); Creatinine Clr Calc Pharmacy 93.8 ml/min; Est GFR (African American) 107.5 ml/min; Est GFR (Non-African American) 92.8 ml/min; Potassium 3.7 mmol/L (3.5-5.1)
[2021-05-03 11:59] LABS: Albumin Globulin Ratio 1.1 (0.9-2); Bilirubin,Total 0.4 mg/dl (0.2-1); Globulin 3.5 gm/dl (2.5-4.0); Total Protein 7.4 gm/dl (6.4-8.2)
[2021-05-03 12:14] LABS: Appearance Urine Clear (Clear); Bacteria Urine Automated Negative (Negative); Bilirubin Urine Negative (Negative); Blood Urine 3+ (Negative); Color Urine Orange; Epithelial Cell Urine Auto >30 /lpf (0-5); Glucose Urine UA Negative (Negative); Ketones Urine Negative (Negative); Leukocyte Esterase Urine Trace (Negative); Nitrite Urine Negative (Negative); Protein Urine Trace (Negative); RBC Urine Automated >30 /hpf (0-4); Specific Gravity Urine 1.006 (1.000-1.030); Urobilinogen Urine Negative (Negative)
[2021-05-03] MEDS ORDERED: OPTIRAY 320 100ml IV ONE (12:34)
[2021-05-03] MEDS ORDERED: PROCHLORPERAZINE 2 ML IV ONE (12:57)
[2021-05-03] MEDS ORDERED: TAMSULOSIN HCL 0.4 MG CAP PO ONE (12:57)
[2021-05-03] MEDS ORDERED: MoRPHine SULFATE 10 MG/ML CARP/VIAL IV STA (12:57)
--- NOTE | 2021-05-03 13:05 | CT Scan Report ---
CT SCAN OF THE ABDOMEN AND PELVIS WITH IV CONTRAST CLINICAL HISTORY: Left flank pain. COMPARISON STUDY: Abdominal CT dated 01/20/2007. TECHNIQUE: Following the IV administration of 95 cc of Optiray 320, CT scan of the abdomen and pelvi s is performed from the lung bases to the proximal femora. Images are reviewed in the axial, sagittal , and coronal planes. IV contrast was administered without complication. A dose lowering technique wa s utilized adhering to the principles of ALARA. CT DOSE: 481.24 mGy.cm FINDINGS: Lung bases: The heart is normal in size and without pericardial effusion. The lung bases are clear. Liver: The contrast-enhanced liver is normal in size, contour, and attenuation. There is no intrahepa tic biliary ductal dilatation. The hepatic veins and portal veins are patent. Gallbladder: Unremarkable. Spleen: Normal in size and attenuation. Pancreas: Unremarkable. Adrenal glands: Unremarkable. Kidneys: The left kidney is mildly enlarged and edematous with perinephric stranding. There is hetero geneously diminished enhancement of the left kidney as compared to the right. There is a 14 mm obstru cting calculus at the left ureteropelvic junction seen on image #182. This causes moderate left-sided hydronephrosis. There are at least 5 additional nonobstructing left renal calculi which measure up t o 4 mm. A 6 mm nonobstructing calculus is seen in the right lower pole. There is no right-sided urete ral stone or hydronephrosis. Abdominal vasculature: The abdominal aorta is normal in course and caliber. Bowel: There is no bowel obstruction. The appendix is well-visualized and normal. Peritoneum: There is no intraperitoneal free air or abdominal ascites. Lymphadenopathy: None. Pelvic viscera: The bladder, uterus, and adnexa are normal as visualized noting bilateral ovarian fol licles. Skeletal structures: No lytic or blastic lesions are seen. IMPRESSION: 1. There is a 14 mm obstructing calculus at the left ureteropelvic junction. This causes moderate lef t hydronephrosis. 2. Additional bilateral nonobstructing renal calculi as above. ACT 112: Negative or not required by law. Electronically signed by: Vick Soto M.D. 05/03/2021 1:04 PM
--- NOTE | 2021-05-03 16:26 | History & Physical Report ---
Date of Service May 03, 2021 Assessment & Plan (1) Renal calculi: (2) Hydronephrosis: -[facility] -Patient presenting from home with reports of left-sided back pain -In the ED, CT ABD/pelvis shows a 14 mm obstructing calculus at the left ureteropelvic junction w/ moderate hydronephrosis -Renal function stable, UA does not appear infected -Urology consult, case discussed with BINA Anna -IVF, pain control, Flomax (3) DVT prophylaxis: -SCDs History of Present Illness Chief Complaint: Left-sided back pain Primary Care Provider: Ana Courtney DO 35-year-old female with PMH gestational diabetes, kidney stones, and other problems listed below who presents the ED for evaluation of left-sided back pain. Patient reports she was feeling intermittently nauseous over the past couple of days. This morning, she reports that she woke up with left-sided back pain similar to prior kidney stones in the past. Patient denies any radiation of the pain. No fevers or chills. Denies dysuria and hematuria. No vomiting or diarrhea. Denies lightheadedness, dizziness, diaphoresis, syncopal events. No chest pain or shortness of breath. In the ED, CT ABD/pelvis shows a 14 mm obstructing calculus at the left ureteropelvic junction with moderate hydronephrosis. Labs are unremarkable. Patient is hemodynamically stable. Patient received IV Tylenol, IV ketorolac 15 mg x 2 doses, IV Zofran, IV prochlorperazine, IV morphine, Flomax, IVF. Allergies Allergy/AdvReac Type Severity Reaction Status Date / Time Sulfa (Sulfonamide Allergy Intermediate RASH - Verified 05/03/21 12:13 Antibiotics) "SULFA DRUGS" Home Medications Medication Instructions Recorded Confirmed Type No Known Home Medications 05/03/21 05/03/21 History Past Med/Surg History Medical History Elderly primigravida, antepartum Gestational diabetes mellitus (GDM) affecting , antepartum History of kidney stones History of varicella Lithoptysis Obese PFO (patent foramen ovale) Severe pre-eclampsia, Spontaneous in first trimester Surgical History H/O lithotripsy History of renal stent S/P dilation and curettage S/P wisdom tooth extraction Family History Mother Diabetes Father Dyslipidemia Hypertension Social History Smoking Status: Never smoker Second Hand Exposure: No; Hx Alcohol Use: No Hx Substance Use: No Preferred Language: Ukrainian Communication Ability: Effective Cobol Developer Required: No Beliefs That Will Affect Care: None marital status: marital status details: William Dhaliwal (38) [phone] Current Living Situation: Spouse Current Living Situation Comment: Home current occupational status: employed current occupation: [employer] Other Information That Helps Us Care for You: No Feels Safe at Home: Yes Safety Concerns: Feels Safe At This Time Assistive Devices: Glasses Review of Systems Review of Systems: ROS per HPI, all other systems reviewed and negative Physical Exam Constitutional: WD/WN, vitals as above Eyes: PERRL, conjunctivae normal, anicteric sclerae ENMT: external ear and nose normal, oropharynx normal Respiratory: normal respiratory effort, lungs clear to auscultation Cardiovascular: Rate/Rhythm: regular rate and regular rhythm Vessels: normal peripheral pulses Extremities: no edema Gastrointestinal (Abdomen): normal bowel sounds, soft, nontender, no hepatosplenomegaly Musculoskeletal: no cyanosis or clubbing, extremities motor strength 5/5 Skin: no rashes, warm and dry Neurologic: PERRL, EOMI, accommodation nl, no face palsy, no dysarthria Psychiatric: A+Ox3, euthymic affect Genitourinary: no CVA tenderness Results & Data Results & Data ([facility]) Vital Signs (Past 12 Hours) Vital Signs Temp Pulse Pulse Resp BP BP Pulse Ox 05/03/21 14:01 72 20 124/87 99 05/03/21 12:41 77 20 121/81 98 05/03/21 11:27 100 05/03/21 11:25 68 18 158/99 H 100 05/03/21 09:58 37.1 C 72 16 155/106 H 99 Laboratory Results Short CBC 05/03/21 Range/Units 11:22 WBC 5.16 (4.8-10.8) K/uL Hgb 14.5 (12.0-16.0) g/dL Hct 41.3 (37-47) % Plt Count 180 (130-400) K/uL BMP 05/03/21 11:22 Sodium 141 Potassium 3.7 Chloride 108 H Carbon Dioxide 26 BUN 15 Creatinine 0.81 Glucose 88 Calcium 9.0 Liver Function 05/03/21 Range/Units 11:22 Total Bilirubin 0.4 (0.2-1) mg/dl AST 19 (15-37) U/L ALT 22 (12-78) U/L Alkaline Phosphatase 66 (45-117) U/L Albumin 3.9 (3.4-5.0) gm/dl Urine 05/03/21 Range/Units 11:22 Urine Color [place] Urine Appearance Clear (Clear) Urine pH 6.0 (4.5-7.5) Ur Specific [place] 1.006 (1.000-1.030) Urine Protein Trace H (Negative) Urine Glucose (UA) Negative (Negative) Diagnostic Findings Abdomen/Pelvis CT 05/03/21 11:26 CT SCAN OF THE ABDOMEN AND PELVIS WITH IV CONTRAST CLINICAL HISTORY: Left flank pain. COMPARISON STUDY: Abdominal CT dated 01/20/2007. TECHNIQUE: Following the IV administration of 95 cc of Optiray 320, CT scan of the abdomen and pelvis is performed from the lung bases to the proximal femora. Images are reviewed in the axial, sagittal, and coronal planes. IV contrast was administered without complication. A dose lowering technique was utilized adhering to the principles of ALARA. CT DOSE: 481.24 mGy.cm FINDINGS: Lung bases: The heart is normal in size and without pericardial effusion. The lung bases are clear. Liver: The contrast-enhanced liver is normal in size, contour, and attenuation. There is no intrahepatic biliary ductal dilatation. The hepatic veins and portal veins are patent. Gallbladder: Unremarkable. Spleen: Normal in size and attenuation. Pancreas: Unremarkable. Adrenal glands: Unremarkable. Kidneys: The left kidney is mildly enlarged and edematous with perinephric stranding. There is heterogeneously diminished enhancement of the left kidney as compared to the right. There is a 14 mm obstructing calculus at the left ureteropelvic junction seen on image #182. This causes moderate left-sided hydronephrosis. There are at least 5 additional nonobstructing left renal calculi which measure up to 4 mm. A 6 mm nonobstructing calculus is seen in the right lower pole. There is no right-sided ureteral stone or hydronephrosis. Abdominal vasculature: The abdominal aorta is normal in course and caliber. Bowel: There is no bowel obstruction. The appendix is well-visualized and normal. Peritoneum: There is no intraperitoneal free air or abdominal ascites. Lymphadenopathy: None. Pelvic viscera: The bladder, uterus, and adnexa are normal as visualized noting bilateral ovarian follicles. Skeletal structures: No lytic or blastic lesions are seen. IMPRESSION: 1. There is a 14 mm obstructing calculus at the left ureteropelvic junction. This causes moderate left hydronephrosis. 2. Additional bilateral nonobstructing renal calculi as above. ACT 112: Negative or not required by law. Electronically signed by: Vick Soto M.D. 05/03/2021 1:04 PM Code Status & VTE Plan VTE Prophylaxis Plan VTE Prophylaxis will be ordered: Yes Supervising Physician Co-Signing Physician Notes I have seen and examined the patient and have discussed the case with the provider above. I agree with the assessment and plan as stated. 35 yo F with a history of recurrent nephrolithiasis presenting with ureteral colic and calculus 14mm in diameter, i.e.- not likely to pass spontaneously. Physical as above. Consult urology. Cont IVF, flomax and supportive measures. DO Kevin
[2021-05-03] MEDS ORDERED: ONDANSETRON INJ 2 MG/ML 2 ML VIAL ONE (16:35)
[2021-05-03] MEDS ORDERED: TAMSULOSIN HCL 0.4 MG CAP ONE (16:38)
[2021-05-03] MEDS ORDERED: ACETAMINOPHEN 325 MG TAB PO PRN (19:58)
[2021-05-03] MEDS ORDERED: ONDANSETRON INJ 2 MG/ML 2 ML VIAL IV PRN (19:58)
[2021-05-03] MEDS ORDERED: MoRPHine SULFATE 4 MG/ML 1 ML CARP\\VIAL IV PRN (19:58)
[2021-05-03] MEDS: SODIUM CHLORIDE 0.9% 1000ML 1,000 ML IV SCH (20:21)
--- NOTE | 2021-05-03 21:13 | Urology Consultation ---
Date of Consultation May 03, 2021 Assessment & Plan (1) Renal calculi: Patient has been admitted to the hospital service. We will proceed as follows: Provide analgesics Provide antiemetics Hydrate with IV fluids Provide Flomax for expulsive therapy As there is no evidence of urinary tract infection antibiotics are not required at this time We will make the patient n.p.o. after midnight and make a determination in the morning if cystoscopy will be required Further recommendation was made based on her clinical course as it unfolds Remaining plan as directed by the primary service History of Present Illness Reason for Consultation: Nephrolithiasis Attending Physician: Irene Brown DO History of Present Illness Is a 35-year-old female who presented to [facility] emergency department secondary to left-sided flank pain over the past day. Patient says that she does have a history of kidney stones which usually require lithotripsy. She has previously followed with Dr. Thurman previously of [facility] urology. She is estimated that she has had lithotripsy at least 7 times. She notes that it has been approximately 6 years since she has required this procedure. She notes that her flank pain is similar to what she noted when she had prior kidney stones. She does not note any palliative or provocative factors as the pain just comes and goes on its own. She notes the pain does not radiate to her groin or abdomen. She did have some nausea without vomiting. She denies any fevers, shakes, chills. She denies any dysuria or hematuria Since admission to [facility] and in the emergency department she was noted to be afebrile. She did have labs and imaging which were independent reviewed. CBC revealed her white blood cell count, hemoglobin, hematocrit, and platelet count are all within normal range. Chemistry profile revealed her sodium, potassium, BUN, and creatinine were all within normal range. A test was noted to be negative. Urinalysis did show 3+ blood and trace leukocyte Estrace. There is no evidence of bacteriuria or pyuria. A Covid test was performed and was noted to be negative. Concerning imaging the patient did have a CT scan of her abdomen and pelvis that showed a 14 mm obstructing kidney stone at the left ureteropelvic junction causing moderate left hydronephrosis. Right-sided ureteral stones or hydronephrosis was noted. At the time of my visit she is resting comfortably in bed. Her pain had resolved and she was in no distress. Allergies Allergy/AdvReac Type Severity Reaction Status Date / Time Sulfa (Sulfonamide Allergy Intermediate RASH - Verified 05/03/21 12:13 Antibiotics) "SULFA DRUGS" Home Medications Medication Instructions Recorded Confirmed Type No Known Home Medications 05/03/21 05/03/21 History Patient History Medical History Elderly primigravida, antepartum Gestational diabetes mellitus (GDM) affecting , antepartum History of kidney stones History of varicella Lithoptysis Obese PFO (patent foramen ovale) Severe pre-eclampsia, Spontaneous in first trimester Surgical History H/O lithotripsy History of renal stent S/P dilation and curettage S/P wisdom tooth extraction Family History Mother Diabetes Father Dyslipidemia Hypertension Social History Smoking Status: Never smoker Second Hand Exposure: No; Hx Alcohol Use: No Hx Substance Use: No Preferred Language: Puerto Rican Communication Ability: Effective Chief Of Hospital Medicine Required: No Beliefs That Will Affect Care: None marital status: marital status details: William Dhaliwal (38) [phone] Current Living Situation: Spouse Current Living Situation Comment: Home current occupational status: employed current occupation: [employer] Other Information That Helps Us Care for You: No Feels Safe at Home: Yes Safety Concerns: Feels Safe At This Time Assistive Devices: None Review of Systems Constitutional: no fever and no chills Eyes: no diplopia Ear, Nose, Mouth, Throat: no ear pain Respiratory: no cough and no dyspnea Cardiovascular: no chest pain Gastrointestinal: + nausea; no abdominal pain and no vomiting Genitourinary: + flank pain (Left-sided); no dysuria and no hematuria Musculoskeletal: + back pain (Left-sided flank pain) Integumentary: no rash Neurologic: no localized weakness Physical Exam Constitutional: well developed and well nourished; no acute distress Eyes: no conjunctival abnormality ENMT: Ears: no hearing impairment Neck: trachea midline Respiratory: normal respiratory effort, lungs clear to auscultation Cardiovascular: Rate/Rhythm: regular rate and regular rhythm Gastrointestinal (Abdomen): Percussion/Palpation: abdomen soft; abdomen nontender Musculoskeletal: No calf tenderness Skin: no rashes, warm and dry Neurologic: moves all extremities Psychiatric: A+Ox3, euthymic affect Genitourinary: + CVA tenderness (Minimal CVA tenderness to percussion on the left side.) Results & Data ([facility]) Vital Signs (Past 12 Hours) Vital Signs Temp Pulse Pulse Resp BP BP Pulse Ox 05/03/21 20:36 36.4 C L 81 16 144/91 H 98 05/03/21 16:40 72 18 121/89 99 05/03/21 14:01 72 20 124/87 99 05/03/21 12:41 77 20 121/81 98 05/03/21 11:27 100 05/03/21 11:25 68 18 158/99 H 100 05/03/21 09:58 37.1 C 72 16 155/106 H 99 PG Care Time/CCT Total # of Minutes Spent Total Time Spent with Patient: Total time spent is greater than 50% in coordination of care (as documented) at patient's floor/unit and/or counseling patient: Coding Level of Care Code 39890 Inpt Consult Level 5 Diagnoses Renal calculi N20.0
[2021-05-04] MEDS: SODIUM CHLORIDE 0.9% 1000ML 1,000 ML IV SCH ×2 (02:07→10:06)
[2021-05-04 06:32] LABS: Hematocrit (blood only) 36.8 % (37-47); Hemoglobin 12.9 g/dL (12.0-16.0); Mean Corpuscular Hgb Conc 35.1 g/dL (32-36); Mean Corpuscular Volume 88.5 fL (80-100); Mean Platelet Volume 10.5 fL (7.4-10.4); Platelet Count 159 K/uL (130-400); RDW Coefficient of Variation 12.3 % (11.5-14.5); RDW Standard Deviation 39.8 fL (36.4-46.3); Red Blood Count 4.16 M/uL (4.2-5.4); White Blood Count 6.36 K/uL (4.8-10.8)
[2021-05-04 07:19] LABS: BUN Creatinine Ratio 10.6 (10-20); Calcium 8.3 mg/dl (8.5-10.1); Creatinine Clr Calc Pharmacy 80.8 ml/min; Est GFR (African American) 89.8 ml/min; Est GFR (Non-African American) 77.5 ml/min; Potassium 3.7 mmol/L (3.5-5.1)
[2021-05-04] MEDS ORDERED: TAMSULOSIN HCL 0.4 MG CAP PO SCH (09:00)
--- NOTE | 2021-05-04 09:55 | Urology Progress Note ---
Date of Service May 04, 2021 Assessment & Plan (1) Left ureteral calculus: (2) Hydronephrosis: (3) Acute left flank pain: 35yo F admitted with intractable left flank pain and nausea secondary to a 14mm left UPJ calculus with hydronephrosis. - She is feeling well with an improvement in symptoms. - Remains afebrile, VSS, non-toxic appearing. - Labs reviewed, Wbc and creatinine stable. - Plan of care reviewed with Dr. Ku, on-call urologist. - Discussed options for acute stone management with cystoscopy and stent placement. - Discussed outpatient ESWL vs. Ureteroscopy laser litho. Stone free rates were also discussed as well as possibility of multiple procedures. Ureteral stents were discussed as well as post-operative issues and pain management. Risks and benefits of all procedures discussed. - Patient prefers outpatient ESWL as she would like to avoid stent placement given she has poorly tolerated stents in the past. - Will tentatively schedule her for Left ESWL this Monday, with a KUB prior to procedure. - Reviewed in detail signs/symptoms that would warrant return to the hospital, patient verbalized an understanding. - Reviewed risks/benefits of ESWL as per consent. - Recommend home with tamsulosin, prn analgesics, and prn antiemetics. - Ok for discharge from perspective. - Will follow-up outpatient with Urology service tomorrow to arrange elective procedure. - Patient agreeable to above plan, all questions were answered. Admission and Anticipated Discharge Date Admission Date: May 03, 2021 Subjective Pt examined at bedside this AM. Awake, resting in bed on arrival. She denies any pain or discomfort at this time. Some nausea, managing with medication. No fevers or chills. Denies vomiting. Denies any urinary symptoms. Feels she is emptying her bladder well. Has been NPO. Review of Systems Constitutional: as per Subjective / HPI Gastrointestinal: as per Subjective / HPI Genitourinary: as per Subjective / HPI Physical Exam Constitutional: well developed and well nourished; no acute distress Respiratory: no labored breathing and no audible wheezes Gastrointestinal (Abdomen): Percussion/Palpation: abdomen soft; abdomen nontender and no guarding Musculoskeletal: Head/Neck/Chest: normocephalic Skin: no rashes, warm and dry Neurologic: awake Psychiatric: Orientation: alert, oriented x 3 and cooperative Genitourinary: no CVA tenderness Results & Data ([facility]) Vital Signs (Past 12 Hours) Vital Signs Temp Pulse Resp BP Pulse Ox 05/04/21 07:49 36.7 C 69 16 120/80 97 05/03/21 22:13 36.5 C 76 16 115/74 98 PG Care Time/CCT Total # of Minutes Spent Total Time Spent with Patient: Total time spent is greater than 50% in coordination of care (as documented) at patient's floor/unit and/or counseling patient: Coding Level of Care Code 21063 Subseq Hosp Care Lvl 2 Diagnoses Left ureteral calculus N20.1 Hydronephrosis Q62.11 Hydronephrosis type: with ureteropelvic junction obstruction Acute left flank pain R10.9 (1) Hydronephrosis Hydronephrosis type: with ureteropelvic junction obstruction Qualified Code(s): Q62.11 - Congenital occlusion of ureteropelvic junction
--- NOTE | 2021-05-04 12:10 | Hospitalist Progress Note ---
Date of Service May 04, 2021 Assessment & Plan (1) Left ureteral calculus: Has a 14 mm obstructing calculus at the left ureteropelvic junction with moderate hydronephrosis as below Symptomatically improved Appreciate urology input and recommendation Pain is controlled with current medications No fever and no chills and no evidence of infection Plan to have urology evaluation as an outpatient for lithotripsy She will be discharged home this afternoon (2) Hydronephrosis: -Patient presenting from home with reports of left-sided back pain -In the ED, CT ABD/pelvis shows a 14 mm obstructing calculus at the left ureteropelvic junction w/ moderate hydronephrosis -Renal function stable, UA does not appear infected -Urology consult, case discussed with BINA Anna -IVF, pain control, Flomax -Discharge home this afternoon (3) Renal calculi: Has bilateral renal calculi Management as per urologist (4) [facility]: [facility] Admission and Anticipated Discharge Date Admission Date: May 03, 2021 Subjective 05/04/2021 The patient was seen and examined in medical floor She has been feeling much better and the pain is reasonably gone Has some nausea but no vomiting, no dysuria and no fever and no chills Review of Systems Review of Systems: All systems reviewed and are unremarkable except as noted below Physical Exam Physical Exam: Lying in bed comfortably Constitutional: well developed and well nourished; no acute distress and not ill appearing Eyes: PERRL, conjunctivae normal, anicteric sclerae ENMT: external ear and nose normal, oropharynx normal Neck: trachea midline, no thyromegaly Respiratory: no respiratory distress Auscultation: lungs clear to auscultation bilaterally Cardiovascular: Rate/Rhythm: regular rate and regular rhythm Heart Sounds: no murmur Extremities: no edema Gastrointestinal (Abdomen): Inspection/Auscultation: abdomen not distended Percussion/Palpation: abdomen soft; abdomen nontender (Renal angles were not tender) Musculoskeletal: No acute arthritis in any joint Neurologic: Alert, awake and oriented x3. No focal sensory and motor deficit appreciated Psychiatric: A+Ox3, euthymic affect Lymphatic: no cervical or axillary lymphadenopathy Results & Data Results & Data ([facility]) Vital Signs (Past 12 Hours) Vital Signs Temp Pulse Resp BP Pulse Ox 05/04/21 07:49 36.7 C 69 16 120/80 97 Laboratory Results Short CBC 05/04/21 Range/Units 06:16 WBC 6.36 (4.8-10.8) K/uL Hgb 12.9 (12.0-16.0) g/dL Hct 36.8 L (37-47) % Plt Count 159 (130-400) K/uL BMP 05/04/21 06:16 Sodium 141 Potassium 3.7 Chloride 112 H Carbon Dioxide 24 BUN 10 D Creatinine 0.94 Glucose 96 Calcium 8.3 L Urine 05/03/21 Range/Units 11:22 Urine Color [place] Urine Appearance Clear (Clear) Urine pH 6.0 (4.5-7.5) Ur Specific [place] 1.006 (1.000-1.030) Urine Protein Trace H (Negative) Urine Glucose (UA) Negative (Negative) Medications Administered Current Inpatient Medications Acetaminophen (Acetaminophen 325 Mg Tab) 650 mg PO Q4H PRN PRN Reason: pain/fever Stop: 06/02/21 19:57 Last Admin: 05/04/21 10:06 Dose: 650 mg Documented by: Sodium Chloride (Nss 1000ml) 1,000 mls @ 125 mls/hr IV .Q8H YAHIR Stop: 06/02/21 19:57 Last Admin: 05/04/21 10:06 Dose: 125 mls/hr Documented by: Morphine Sulfate (Morphine Sulfate 4 Mg/Ml 1 Ml Carp\Vial) 4 mg IV Q3H PRN PRN Reason: Pain Stop: 05/17/21 19:57 Last Admin: 05/03/21 20:20 Dose: 4 mg Documented by: Ondansetron HCl (Ondansetron Inj 2 Mg/Ml 2 Ml Vial) 4 mg IV Q6H PRN PRN Reason: Nausea Stop: 06/02/21 19:57 Last Admin: 05/04/21 07:58 Dose: 4 mg Documented by: Tamsulosin HCl (Tamsulosin Hcl 0.4 Mg Cap) 0.4 mg PO QAM YAHIR Stop: 06/03/21 08:59 Last Admin: 05/04/21 08:07 Dose: 0.4 mg Documented by: (1) Hydronephrosis Hydronephrosis type: with ureteropelvic junction obstruction Qualified Code(s): Q62.11 - Congenital occlusion of ureteropelvic junction
--- NOTE | 2021-05-04 15:02 | XRay Report ---
XR chest 2V PA/lateral CLINICAL HISTORY: pre op COMPARISON STUDY: No previous studies for comparison. FINDINGS: No pneumothorax. No pleural effusion. No large infiltrates or consolidative lesions are seen. Cardiomediastinal silhouette is within normal limits in size. No significant pulmonary vascular congestion.. Osseous structures: unremarkable IMPRESSION: 1. No acute pulmonary process. ACT 112: Negative or not required by law. The above report was generated using voice recognition software. It may contain grammatical, syntax o r spelling errors. Electronically signed by: Eileen Mina DO 05/04/2021 3:00 PM
--- NOTE | 2021-05-04 17:07 | Discharge Summary ---
Date of Service May 04, 2021 Admission HPI Per Admitting Provider 35-year-old female with PMH gestational diabetes, kidney stones, and other problems listed below who presents the ED for evaluation of left-sided back pain. Patient reports she was feeling intermittently nauseous over the past couple of days. This morning, she reports that she woke up with left-sided back pain similar to prior kidney stones in the past. Patient denies any radiation of the pain. No fevers or chills. Denies dysuria and hematuria. No vomiting or diarrhea. Denies lightheadedness, dizziness, diaphoresis, syncopal events. No chest pain or shortness of breath. In the ED, CT ABD/pelvis shows a 14 mm obstructing calculus at the left ureteropelvic junction with moderate hydronephrosis. Labs are unremarkable. Patient is hemodynamically stable. Patient received IV Tylenol, IV ketorolac 15 mg x 2 doses, IV Zofran, IV prochlorperazine, IV morphine, Flomax, IVF. Admission Exam Per Admitting Provider Constitutional: WD/WN, vitals as above Eyes: PERRL, conjunctivae normal, anicteric sclerae ENMT: external ear and nose normal, oropharynx normal Respiratory: normal respiratory effort, lungs clear to auscultation Cardiovascular: Rate/Rhythm: regular rate and regular rhythm Vessels: normal peripheral pulses Extremities: no edema Gastrointestinal (Abdomen): normal bowel sounds, soft, nontender, no hepat osplenomegaly Musculoskeletal: no cyanosis or clubbing, extremities motor strength 5/5 Skin: no rashes, warm and dry Neurologic: PERRL, EOMI, accommodation nl, no face palsy, no dysarthria Psychiatric: A+Ox3, euthymic affect Genitourinary: no CVA tenderness Principal Diagnosis Left Ureteric Obstructing Calculus,Hydronephrosis,Renal calculi Discharge Exam Constitutional well developed and well nourished; no acute distress and not ill appearing Eyes PERRL, conjunctivae normal, anicteric sclerae ENMT external ear and nose normal, oropharynx normal Neck trachea midline, no thyromegaly Respiratory no respiratory distress Auscultation: lungs clear to auscultation bilaterally Cardiovascular Rate/Rhythm: regular rate and regular rhythm Heart Sounds: no murmur Extremities: no edema Gastrointestinal (Abdomen) Inspection/Auscultation: abdomen not distended Percussion/Palpation: abdomen soft; abdomen nontender (Renal angles were not tender) Psychiatric A+Ox3, euthymic affect Lymphatic no cervical or axillary lymphadenopathy Discharge Data Allergies Allergy/AdvReac Type Severity Reaction Status Date / Time Sulfa (Sulfonamide Allergy Intermediate RASH - Verified 05/03/21 12:13 Antibiotics) "SULFA DRUGS" Consultations 05/03/21 13:47 ED Decision to Admit Stat 05/03/21 14:27 Consult Urology Routine Ordered Studies 05/03/21 11:26 CT abd pelvis IV con only Stat Hospital Course (1) Left ureteral calculus: Has a 14 mm obstructing calculus at the left ureteropelvic junction with moderate hydronephrosis as below Symptomatically improved Appreciate urology input and recommendation Pain is controlled with current medications No fever and no chills and no evidence of infection Plan to have urology evaluation as an outpatient for lithotripsy She will be discharged home this afternoon (2) Hydronephrosis: -Patient presenting from home with reports of left-sided back pain -In the ED, CT ABD/pelvis shows a 14 mm obstructing calculus at the left ureteropelvic junction w/ moderate hydronephrosis -Renal function stable, UA does not appear infected -Urology consult, case discussed with BINA Anna -IVF, pain control, Flomax -Discharge home this afternoon (3) Renal calculi: Has bilateral renal calculi Management as per urologist (4) DVT prophylaxis: -SCDs Total Time Total Time Spent Total Time Spent (In Minutes): 35 minutes Total Time Includes: Examination of the Patient, Discharge Planning, Medication Reconciliation and Communication With Other Providers Discharge Plan Discharge Items Patient Disposition: Home - Self-Care Reason For Visit: RENAL CALCULI Discharge Diagnosis: Left Ureteric Obstructing Calculus,Hydronephrosis,Renal calculi Condition on Discharge: Good Activity: Resume your previous activity Non-emergency contact: Primary Care Provider Call non-emergency contact if: you have any medication questions and your symptoms worsen Follow-up/Referrals: Ana Courtney DO [Primary Care Provider] - (Date & Time 05/10/2021 11:20 AM Provider Darrell Bruce MD [facility] [address] ) Addtl Attending Provider Instructions: - Please follow-up tomorrow May 05 at 3pm with the Urology service to arrange your procedure. - The urology office is located at [address] [place] [address]. - Please call our office at [phone] with any questions, concerns or need to reschedule appointments for any reason. Pending Studies at Discharge: No Stand-Alone Forms: My [facility], Smoking Cessation Medications and DC Order Prescriptions: New tamsulosin 0.4 mg Capsule 0.4 mg PO QAM 30 Days Qty: 30 RF: 0 oxycodone-acetaminophen [Percocet] 5-325 mg tablet 1 tab PO Q6H PRN (Reason: pain) Qty: 10 RF: 0 ondansetron HCl [Zofran] 4 mg tablet 4 mg PO Q6H PRN (Reason: nausea and vomiting) Qty: 14 RF: 0 No Action No Known Home Medications RF: 0 Discharge Orders: Discharge Order (Routine); Ordered 05/04/21 Ordered By: Missy Dyer/Other Patient Handouts: Preventing Kidney Stones Admission Data Admit Date/Time: 05/03/21 14:04 Attending Provider: Missy Calhoun Admit Provider: Irene Brown Primary Care Provider: Ana Courtney Other Providers: Irene Brown ; Inderjit Song Other Interventions: Discharge Summary Assessment (RN) Last Done: 05/04/21 13:10
--- NOTE | 2021-05-05 06:17 | Electrocardiogram Report ---
Test Reason : Blood Pressure : / mmHG Vent. Rate : 065 BPM Atrial Rate : 065 BPM P-R Int : 136 ms QRS Dur : 084 ms QT Int : 426 ms P-R-T Axes : 012 -03 -13 degrees QTc Int : 443 ms Normal sinus rhythm Nonspecific T wave abnormality Abnormal ECG When compared with ECG of 11-APR-2018 12:37, Nonspecific T wave abnormality now evident in Anterior leads Confirmed by Dheeraj Mederos ([id number]) on 05/05/2021 6:17:36 AM Referred By: REFERRED SELF Confirmed By:Dheeraj Mederos
== END 2021-05-04 14:34 | disposition home or self-care (01) | DRG 694 ==
LOC: ED 09:53 → SUATTDRO 14:04 → 3E 14:04

== ENCOUNTER 2021-09-22 07:34 | Observation (INO) ==
[2021-09-22] MEDS ORDERED: ONDANSETRON INJ 2 MG/ML 2 ML VIAL IV STA (08:02)
[2021-09-22] MEDS ORDERED: SODIUM CHLORIDE 0.9% 1000ML 1,000 ML IV ONE (08:02)
--- NOTE | 2021-09-22 08:39 | Emergency Department Note ---
History of Present Illness General Chief complaint: Headache Stated complaint: LITHOTRIPSY ISSUES/PAINS/HEADACHE/CHILLS Time Seen by Provider: 09/22/21 07:46 History of Present Illness Maximum Pain Intensity: 4 35-year-old female who presents to the emergency department with several compl aints, including headache, chills, nausea and headache. The patient reports that she underwent extracorporeal shockwave lithotripsy this past Monday (09/17/2021) by Dr. Ku. The patient reports that they did collect a urine yesterday for cultures, and indicated that she may be infected. The patient was not started on any antibiotics until cultures could be completed. The patient did complete a 3-day course of Cipro 500 mg twice daily after her procedure, which she reports upset her stomach. The patient denies any other upper respiratory symptoms, chest pain, shortness of breath or diarrhea. She rates her overall discomfort a 4 out of 10. Home Medications Medication Instructions Recorded Confirmed Type tamsulosin 0.4 mg capsule 0.4 mg PO DAILY 09/22/21 09/22/21 History Allergies Allergy/AdvReac Type Severity Reaction Status Date / Time Sulfa (Sulfonamide Allergy Intermediate RASH - Verified 09/22/21 16:14 Antibiotics) "SULFA DRUGS" Past Med/Surg History Medical History History of asthma NO CURRENT PROBLEM/NO INHALER History of COVID-15 FEBRUARY 2021 > congestion, loss of taste and smell Hx gestational diabetes Kidney stones PFO (patent foramen ovale) NO CURRENT CARDS Surgical History H/O lithotripsy History of section X 1 History of cystoscopy History of dilatation and curettage [place] teeth removed Family History Mother Diabetes Family history of diabetes mellitus Father Dyslipidemia Hypertension Other No family history of adverse response to anesthesia Denies family history of Ovarian cancer Breast cancer Colorectal cancer Social History Smoking Status: Never smoker Second Hand Exposure: No; Hx Alcohol Use: No Hx Substance Use: No Preferred Language: Kyrgyz Communication Ability: Effective Telegraphic Typewriter Operator Required: No Beliefs That Will Affect Care: None marital status: marital status details: William Dhaliwal ([phone] Current Living Situation: Spouse Current Living Situation Comment: Home current occupational status: employed current occupation: [employer] Feels Safe at Home: Yes Assistive Devices: None Review of Systems 10 system review was performed and was negative except for pertinent positives and negatives as indicated in history of present illness Physical Exam Vital Signs Vital Signs - 24 hr 09/22/21 07:38 09/22/21 09:34 09/22/21 12:51 Temperature 36.4 C L Temperature Source Temporal Artery Scan Pulse Rate 90 Pulse Rate [Finger] 77 82 Pulse Rhythm [Finger] Regular Pulse Strength [Finger] Normal Respiratory Rate 16 20 18 Respiratory Effort / Characteristics Non-Labored Spontaneous Non-Labored Spontaneous Non-Labored Respiratory Depth Normal Normal Normal Blood Pressure 137/93 Blood Pressure [Left Arm] 133/84 135/80 Blood Pressure Mean 107 Blood Pressure Mean [Left Arm] 100 98 Blood Pressure Position Sitting Blood Pressure Position [Left Arm] Lying Pulse Oximetry 99 98 98 Oxygen Delivery Method Room Air Room Air Room Air Sepsis Recent Fever Within 48 Hours No Sepsis New/Unexplained Change in Mental Status N/A Sepsis Action Taken by Nursing No Action Required CONSTITUTIONAL: Healthy and well nourished. Alert and oriented X 3. Patient does not appear toxic. HEENT: No scleral icterus or conjunctival injection. NECK: Full active range of motion without discomfort. LYMPHATICS: No cervical chain adenopathy. RESPIRATORY: Clear to auscultation bilaterally with no wheezing, crackles, rhonchi or stridor. CARDIOVASCULAR: Regular rate and rhythm with no murmurs, rubs or gallops. GASTROINTESTINAL: Bowel sounds present in all quadrants. Patient has no focal abdominal tenderness to palpation. Negative McBurney's point tenderness. No rigidity, guarding or rebound. MUSCULOSKELETAL: Full range of motion of all joints without discomfort. INTEGUMENTARY: No rash or other significant dermatologic conditions noted. HEMATOLOGIC: No ecchymosis or petechiae. PSYCHIATRIC: Positive affect. NEUROLOGIC: No focal neurologic deficits noted. Course Course Patient history and physical exam were performed. Nurses notes were reviewed. Vital signs were reviewed. The patient is at febrile, tachycardic or hypotensive. IV access was established, and labs were drawn. The patient was hydrated with a liter of normal saline, and administered IV Zofran. She refused any analgesics. Review of labs shows a mild leukocytosis with left shift and bandemia. CMP and lipase are otherwise unremarkable. Urinalysis shows hematuria, proteinuria and trace leukocyte esterase without urine bacteria or nitrates. Urine sample was contaminated. Retroperitoneal ultrasound was performed, and wa s concerning for a possible perinephric or subcapsular hemorrhage, with other possible intrarenal hematomas noted. No hydronephrosis is noted. Radiologist did recommend a CT of the abdomen and pelvis for further evaluation. Upon reevaluation, the patient was then requesting something for her headache, and was administered IV Tylenol. The patient consents to CT imaging, which was performed and showed a subcapsular hematoma with hemorrhage extending into the right paracolic gutter and dependent pelvis. There is also mass-effect on the right kidney with delayed nephrogram, with radiologist concern for possible page kidney. The case was also discussed with Dr. Mcfadden, ED attending physician, who recommended discussing the case with urology. I then discussed the case with the [facility] urology service (Marcia Henry and Dr. Benton), who has recommended admission to our facility with serial H&H levels, pain control and further observation. [facility] Please see their dictations for further treatment and final disposition. The patient refused any additional analgesics prior to transfer of care to their service. COVID-19 test was also negative. Administered Medications Acetaminophen (Acetaminophen 500 Mg Tab) 1,000 mg PO Q8H [facility] Stop: 09/24/21 13:59 Last Admin: 09/22/21 14:27 Dose: 1,000 mg Documented by: [id number] Ondansetron HCl (Ondansetron Inj 2 Mg/Ml 2 Ml Vial) 4 mg IV Q6H PRN PRN Reason: Nausea Stop: 10/22/21 16:03 Last Admin: 09/22/21 16:20 Dose: 4 mg Documented by: [id number] Discontinued Medications Acetaminophen (Acetaminophen 1000 Mg/100 Ml Iv) 1,000 mg IV NOW STA Stop: 09/22/21 10:14 Last Admin: 09/22/21 10:17 Dose: 1,000 mg Documented by: [id number] Sodium Chloride (Nss 1000ml) 1,000 mls @ 999 mls/hr IV .Q1H1M ONE Stop: 09/22/21 09:02 Last Infusion: 09/22/21 10:00 Dose: 0 mls/hr Documented by: [id number] Admin: 09/22/21 08:32 Dose: 999 mls/hr Documented by: [id number] Ioversol (Optiray 320 100ml) 95 ml IV ONCE ONE Stop: 09/22/21 10:39 Last Admin: 09/22/21 10:38 Dose: 95 ml Documented by: [id number] Ondansetron HCl (Ondansetron Inj 2 Mg/Ml 2 Ml Vial) 4 mg IV NOW STA Stop: 09/22/21 08:03 Last Admin: 09/22/21 08:32 Dose: 4 mg Documented by: [id number] Ondansetron HCl (Ondansetron Inj 2 Mg/Ml 2 Ml Vial) Confirm Administered Dose 4 mg .ROUTE .STK-MED ONE Stop: 09/22/21 16:13 Last Admin: 09/22/21 16:21 Dose: Not Given Documented by: [id number] Medical Decision Making Medical Records Attestation: I reviewed the patient's medical records. Home Medications Current Medication List: was personally reviewed by me Laboratory Data Attestation: I reviewed the patient's lab results. Result diagrams: 09/22/21 16:44 09/22/21 08:30 Lab Results 09/22/21 09/22/21 09/22/21 Range/Units 08:30 08:30 08:30 WBC 11.62 H (4.8-10.8) K/uL RBC 3.29 L (4.2-5.4) M/uL Hgb 10.0 L (12.0-16.0) g/dL Hct 29.7 L (37-47) % MCV 90.3 (80-100) fL MCH 30.4 (25-34) pg MCHC 33.7 (32-36) g/dL RDW Std Deviation 40.6 (36.4-46.3) fL RDW Coeff of Alejandro 12.4 (11.5-14.5) % Plt Count 217 (130-400) K/uL MPV 10.7 H (7.4-10.4) fL Immature Gran % (Auto) 0.3 % Neut % (Auto) 73.3 % Lymph % (Auto) 14.9 % Davis % (Auto) 10.7 % Eos % (Auto) 0.7 % Baso % (Auto) 0.1 % Neut # (Auto) 8.52 H (1.4-6.5) K/uL Lymph # (Auto) 1.73 (1.2-3.4) K/uL Davis # (Auto) 1.24 H (0.11-0.59) K/uL Eos # (Auto) 0.08 (0-0.5) K/uL Baso # (Auto) 0.01 (0-0.2) K/uL Immature Gran # (Auto) 0.04 H (0.00-0.02) K/uL Sodium 140 (136-145) mmol/L Potassium 3.6 (3.5-5.1) mmol/L Chloride 107 (98-107) mmol/L Carbon Dioxide 26 (21-32) mmol/L Anion Gap 7.0 (3-11) BUN 14 (7-18) mg/dl Creatinine 0.72 (0.6-1.2) mg/dl Est Cr Clr Drug Dosing 107.4 ml/min Est GFR ( Amer) 124.0 ml/min Est GFR (Non-Af Amer) 107.0 ml/min BUN/Creatinine Ratio 18.7 (10-20) Glucose 96 (70-99) mg/dl Calcium 8.7 (8.5-10.1) mg/dl Total Bilirubin 0.8 (0.2-1) mg/dl AST 7 L (15-37) U/L ALT 17 (12-78) U/L Alkaline Phosphatase 59 (45-117) U/L Total Protein 7.2 (6.4-8.2) gm/dl Albumin 3.4 (3.4-5.0) gm/dl Globulin 3.8 (2.5-4.0) gm/dl Albumin/Globulin Ratio 0.9 (0.9-2) Lipase 67 L (73-393) U/L Urine Color Yellow Urine Appearance Clear (Clear) Urine pH 7.5 (4.5-7.5) Ur Specific [place] 1.016 (1.000-1.030) Urine Protein Trace H (Negative) Urine Glucose (UA) Negative (Negative) Urine Ketones Negative (Negative) Urine Blood 2+ H (Negative) Urine Nitrite Negative (Negative) Urine Bilirubin Negative (Negative) Urine Urobilinogen Negative (Negative) Ur Leukocyte Esterase Trace H (Negative) Urine WBC (Auto) 5-10 H (0-5) /hpf Urine RBC (Auto) 5-10 H (0-4) /hpf U Hyaline Cast (Auto) 1-5 (0-5) /lpf U Epithel Cells (Auto) >30 H (0-5) /lpf Urine Bacteria (Auto) Negative (Negative) POC Ur Test (NEG) 09/22/21 Range/Units 08:39 WBC (4.8-10.8) K/uL RBC (4.2-5.4) M/uL Hgb (12.0-16.0) g/dL Hct (37-47) % MCV (80-100) fL MCH (25-34) pg MCHC (32-36) g/dL RDW Std Deviation (36.4-46.3) fL RDW Coeff of Alejandro (11.5-14.5) % Plt Count (130-400) K/uL MPV (7.4-10.4) fL Immature Gran % (Auto) % Neut % (Auto) % Lymph % (Auto) % Davis % (Auto) % Eos % (Auto) % Baso % (Auto) % Neut # (Auto) (1.4-6.5) K/uL Lymph # (Auto) (1.2-3.4) K/uL Davis # (Auto) (0.11-0.59) K/uL Eos # (Auto) (0-0.5) K/uL Baso # (Auto) (0-0.2) K/uL Immature Gran # (Auto) (0.00-0.02) K/uL Sodium (136-145) mmol/L Potassium (3.5-5.1) mmol/L Chloride (98-107) mmol/L Carbon Dioxide (21-32) mmol/L Anion Gap (3-11) BUN (7-18) mg/dl Creatinine (0.6-1.2) mg/dl Est Cr Clr Drug Dosing ml/min Est GFR ( Amer) ml/min Est GFR (Non-Af Amer) ml/min BUN/Creatinine Ratio (10-20) Glucose (70-99) mg/dl Calcium (8.5-10.1) mg/dl Total Bilirubin (0.2-1) mg/dl AST (15-37) U/L ALT (12-78) U/L Alkaline Phosphatase (45-117) U/L Total Protein (6.4-8.2) gm/dl Albumin (3.4-5.0) gm/dl Globulin (2.5-4.0) gm/dl Albumin/Globulin Ratio (0.9-2) Lipase (73-393) U/L Urine Color Urine Appearance (Clear) Urine pH (4.5-7.5) Ur Specific [place] (1.000-1.030) Urine Protein (Negative) Urine Glucose (UA) (Negative) Urine Ketones (Negative) Urine Blood (Negative) Urine Nitrite (Negative) Urine Bilirubin (Negative) Urine Urobilinogen (Negative) Ur Leukocyte Esterase (Negative) Urine WBC (Auto) (0-5) /hpf Urine RBC (Auto) (0-4) /hpf U Hyaline Cast (Auto) (0-5) /lpf U Epithel Cells (Auto) (0-5) /lpf Urine Bacteria (Auto) (Negative) POC Ur Test NEG (NEG) Imaging Data Attestation: I personally reviewed and interpreted this imaging study as follows: My Impression: Retroperitoneal ultrasound was concerning for perinephritic fluid and possible subcapsular hemorrhage/hematomas. CT with IV contrast of the abdomen and pelvis shows an acute subcapsular hematoma which hemorrhage extending into the right paracolic gutter and pelvis, with mass-effect on the right kidney causing a delayed nephrogram. This results in mass-effect on the kidney, concerning for possible page kidney. Radiologist reports were also reviewed, and included below for reader convenience. Radiologist's Impression: Renal Ultrasound 09/22/21 08:02 RENAL ULTRASOUND CLINICAL HISTORY: Abdominal pain s/p ESWL COMPARISON STUDY: CT of the abdomen and pelvis June 03, 2021. KUB September 21, 2021. Renal ultrasound September 08, 2021. TECHNIQUE: Sonography of the kidneys and the urinary bladder was performed. FINDINGS: The right kidney is enlarged and heterogeneous in appearance. The right kidney measures 14.3 x 7.9 x 8.7 cm. The left kidney measures 12.2 x 7 x 7.2 cm. There is right perinephric fluid. In addition, there are h ypoechoic/cystic foci within the right kidney which measure up to 1.6 cm. There is no hydronephrosis. Both ureteral jets were identified. There is no left perinephric fluid. IMPRESSION: 1. Enlarged heterogeneous right kidney with perinephric fluid. This raises the possibility of perinephric or subcapsular hemorrhage. A few hypoechoic/cystic foci within the right kidney measure up to 1.6 cm are nonspecific but may reflect hematomas. A CT of the abdomen and pelvis is recommended for further evaluation. 2. No hydronephrosis. ACT 112: Negative or not required by law. Electronically signed by: Adalberto Esqueda M.D. 09/22/2021 9:39 AM Abdomen/Pelvis CT 09/22/21 10:[address] WITH IV CONTRAST CT DOSE: 1145.18 mGy.cm HISTORY: Acute right renal injury status post lithotripsy Eval R kidney injury TECHNIQUE: Multiaxial CT images of the abdomen and pelvis were performed following the IV administration of 94 cc of Optiray, A dose lowering technique was utilized adhering to the principles of ALARA. COMPARISON STUDY: Renal ultrasound 09/22/2021, KUB 09/21/2021, CT abdomen and pelvis 06/02/2021 FINDINGS: The imaged inferior cardiac chambers are unremarkable. Lung bases are generally clear. 3 mm fissural nodule of the right lung base on image 32 series 4 is unchanged and likely benign. No pneumatosis or pneumoperitoneum. Unremarkable spleen, pancreas, adrenal glands, gallbladder and liver. Patent hepatic and portal veins. The previously noted nonobstructing calculi of the kidneys seen on the noncontrast study is not definitively seen. Delayed phase of postcontrast imaging demonstrates normal appearance of the left kidney. No collecting system or ureteral filling defects identified. There is mild urothelial thickening of the right renal pelvis and proximal right ureter. There is heterogeneously decreased enhancement of the right kidney with a subcapsular hematoma measuring 21.2 x 2.5 x 12.6 cm. Hemorrhage extends outside the perinephric space into the right pericolic gutter and dependent pelvis. No evidence of active extravasation. Hematoma causes mass effect upon the right kidney. Mild urinary bladder distention. Unremarkable uterus and left adnexum. 3.3 cm right ovarian cyst. Aorta and IVC are unremarkable. No adenopathy. No bowel obstruction or bowel wall thickening. Mild colonic diverticulosis without acute diverticulitis. The visualized appendix is noninflamed. Unrem arkable soft tissues. No acute fracture. IMPRESSION: 1. Acute subcapsular hematoma of the right kidney measures up to 21.2 x 2.5 x 12.6 cm with hemorrhage extending into the right pericolic gutter and dependent pelvis. There is mass effect on the right kidney with delayed nephrogram. Correlate clinically to exclude page kidney. 2. Mild urothelial thickening of the right renal pelvis and proximal right ureter. Evaluation for renal calculi is limited secondary to contrast within the renal collecting systems. 3. No hydronephrosis. 4. Additional findings as above. ACT 112: Negative or not required by law. The above report was generated using voice recognition software. It may contain grammatical, syntax or spelling errors. Electronically signed by: Gino Wilkerson M.D. 09/22/2021 11:19 AM Blood Pressure Blood Pressure Findings: Normal blood pressure MDM Narrative Patient presents to the emergency department with complaint of developing abdominal pain and not feeling well after undergoing ESWL procedure last Monday. Today's work-up is concerning for a subcapsular hematoma with hemorrhage, and mass-effect on the right kidney, concerning for developing page kidney. At this point, the patient he is not hypertensive. The patient has had adequate pain control while under my care. Consultation was placed with urology, who feels that the patient is stable for inpatient management at our facility, with referral to a tertiary care center if her condition declines. Impression & Plan Renal hematoma, right, Renal hemorrhage, right, Status post extracorporeal shock wave therapy Discharge Plan Visit Data Chief Complaint: Headache Stated Complaint: LITHOTRIPSY ISSUES/PAINS/HEADACHE/CHILLS ED Provider: Socrates Mcfadden ED Midlevel Provider: Gino Ngo Discharge Problem: Renal hematoma, right, Renal hemorrhage, right, Status post extracorporeal shock wave therapy Patient Disposition: Admitted As Inpatient Discharge Instructions Interventions: ED Discharge Assessment Last Done: 09/22/21 15:28 Discharge Problem: Renal hematoma, right Qualifiers: Encounter type: initial encounter Qualified Code(s): S37.011A - Minor contusion of right kidney, initial encounter
[2021-09-22 08:50] LABS: Appearance Urine Clear (Clear); Bacteria Urine Automated Negative (Negative); Bilirubin Urine Negative (Negative); Blood Urine 2+ (Negative); Color Urine Yellow; Epithelial Cell Urine Auto >30 /lpf (0-5); Glucose Urine UA Negative (Negative); Ketones Urine Negative (Negative); Leukocyte Esterase Urine Trace (Negative); Nitrite Urine Negative (Negative); Specific Gravity Urine 1.016 (1.000-1.030); Urobilinogen Urine Negative (Negative); pH Urine 7.5 (4.5-7.5)
[2021-09-22 09:09] LABS: Protein Urine Trace (Negative)
[2021-09-22 09:12] LABS: Albumin Level 3.4 gm/dl (3.4-5.0); BUN Creatinine Ratio 18.7 (10-20); Calcium 8.7 mg/dl (8.5-10.1); Creatinine Clr Calc Pharmacy 107.4 ml/min; Potassium 3.6 mmol/L (3.5-5.1)
[2021-09-22 09:15] LABS: Albumin Globulin Ratio 0.9 (0.9-2); Bilirubin,Total 0.8 mg/dl (0.2-1); Globulin 3.8 gm/dl (2.5-4.0); Total Protein 7.2 gm/dl (6.4-8.2)
[2021-09-22 09:18] LABS: Basophils # (auto) 0.01 K/uL (0-0.2); Basophils % (auto) 0.1 %; Eosinophils # (auto) 0.08 K/uL (0-0.5); Eosinophils % (auto) 0.7 %; Hematocrit (blood only) 29.7 % (37-47); Immature Granulocytes # (auto) 0.04 K/uL (0.00-0.02); Immature Granulocytes % (auto) 0.3 %; Lymphocytes # (auto) 1.73 K/uL (1.2-3.4); Lymphocytes % (auto) 14.9 %; Mean Corpuscular Hemoglobin 30.4 pg (25-34); Mean Corpuscular Hgb Conc 33.7 g/dL (32-36); Mean Corpuscular Volume 90.3 fL (80-100); Mean Platelet Volume 10.7 fL (7.4-10.4); Monocytes # (auto) 1.24 K/uL (0.11-0.59); Monocytes % (auto) 10.7 %; Neutrophils # (auto) 8.52 K/uL (1.4-6.5); Neutrophils % (auto) 73.3 %; Platelet Count 217 K/uL (130-400); RDW Coefficient of Variation 12.4 % (11.5-14.5); RDW Standard Deviation 40.6 fL (36.4-46.3); Red Blood Count 3.29 M/uL (4.2-5.4); White Blood Count 11.62 K/uL (4.8-10.8)
--- NOTE | 2021-09-22 09:40 | Ultrasound Report ---
RENAL ULTRASOUND CLINICAL HISTORY: Abdominal pain s/p ESWL COMPARISON STUDY: CT of the abdomen and pelvis June 03, 2021. KUB September 21, 2021. Renal ultrasou nd September 08, 2021. TECHNIQUE: Sonography of the kidneys and the urinary bladder was performed. FINDINGS: The right kidney is enlarged and heterogeneous in appearance. The right kidney measures 14. 3 x 7.9 x 8.7 cm. The left kidney measures 12.2 x 7 x 7.2 cm. There is right perinephric fluid. In ad dition, there are hypoechoic/cystic foci within the right kidney which measure up to 1.6 cm. There is no hydronephrosis. Both ureteral jets were identified. There is no left perinephric fluid. IMPRESSION: 1. Enlarged heterogeneous right kidney with perinephric fluid. This raises the possibility of perinep hric or subcapsular hemorrhage. A few hypoechoic/cystic foci within the right kidney measure up to 1. 6 cm are nonspecific but may reflect hematomas. A CT of the abdomen and pelvis is recommended for fur ther evaluation. 2. No hydronephrosis. ACT 112: Negative or not required by law. Electronically signed by: Adalberto Esqueda M.D. 09/22/2021 9:39 AM
[2021-09-22] MEDS ORDERED: ACETAMINOPHEN 1000 MG/100 ML IV IV STA (10:13)
[2021-09-22] MEDS ORDERED: OPTIRAY 320 100ml IV ONE (10:38)
--- NOTE | 2021-09-22 11:20 | CT Scan Report ---
ABDOMEN AND PELVIS CT WITH IV CONTRAST CT DOSE: 1145.18 mGy.cm HISTORY: Acute right renal injury status post lithotripsy Eval R kidney injury TECHNIQUE: Multiaxial CT images of the abdomen and pelvis were performed following the IV administrat ion of 94 cc of Optiray, A dose lowering technique was utilized adhering to the principles of ALARA. COMPARISON STUDY: Renal ultrasound 09/22/2021, KUB 09/21/2021, CT abdomen and pelvis 06/02/2021 FINDINGS: The imaged inferior cardiac chambers are unremarkable. Lung bases are generally clear. 3 mm fissural nodule of the right lung base on image 32 series 4 is unchanged and likely benign. No pneumatosis or pneumoperitoneum. Unremarkable spleen, pancreas, adrenal glands, gallbladder and liver. Patent hepati c and portal veins. The previously noted nonobstructing calculi of the kidneys seen on the noncontrast study is not defin itively seen. Delayed phase of postcontrast imaging demonstrates normal appearance of the left kidney . No collecting system or ureteral filling defects identified. There is mild urothelial thickening of the right renal pelvis and proximal right ureter. There is heterogeneously decreased enhancement of the right kidney with a subcapsular hematoma measuring 21.2 x 2.5 x 12.6 cm. Hemorrhage extends outsi de the perinephric space into the right pericolic gutter and dependent pelvis. No evidence of active extravasation. Hematoma causes mass effect upon the right kidney. Mild urinary bladder distention. Un remarkable uterus and left adnexum. 3.3 cm right ovarian cyst. Aorta and IVC are unremarkable. No peter nopathy. No bowel obstruction or bowel wall thickening. Mild colonic diverticulosis without acute diverticulit is. The visualized appendix is noninflamed. Unremarkable soft tissues. No acute fracture. IMPRESSION: 1. Acute subcapsular hematoma of the right kidney measures up to 21.2 x 2.5 x 12.6 cm with hemorrhage extending into the right pericolic gutter and dependent pelvis. There is mass effect on the right ki dney with delayed nephrogram. Correlate clinically to exclude page kidney. 2. Mild urothelial thickening of the right renal pelvis and proximal right ureter. Evaluation for vivek al calculi is limited secondary to contrast within the renal collecting systems. 3. No hydronephrosis. 4. Additional findings as above. ACT 112: Negative or not required by law. The above report was generated using voice recognition software. It may contain grammatical, syntax o r spelling errors. Electronically signed by: Gino Wilkerson M.D. 09/22/2021 11:19 AM
--- NOTE | 2021-09-22 12:52 | Urology Consultation ---
Date of Consultation September 22, 2021 Assessment & Plan (1) Renal hematoma, right: (2) Status post extracorporeal shock wave therapy: 35yo F who is s/p recent right ESWL admitted with acute subcapsular hematoma of the right kidney - Plan of care and imaging reviewed with Dr. Benton, on-call urologist. - CTAP reviewed - Acute subcapsular hematoma of the right kidney with hemorrhage extending into the right pericolic gutter and dependent pelvis with mild urothelial thickening of the right renal pelvis and proximal right ureter. - She is afebrile, VSS, non-toxic appearing. - Labs reviewed - Wbc mildly elevated, Hemoglobin 10.0, creatinine normal. - Urine culture from 09/21 pending. - No acute intervention warranted at this time. - Recommend managing with conservative measures including analgesics, antiemetics, and close monitoring of vital signs. - Monitor H&H Q6H, transfuse as felt necessary per primary team. - Clear liquid diet. - If patient becomes febrile, hemodynamically unstable, or any acute changes in clinical status will need to consider transfer to tertiary center for embolization. - Will continue to follow closely. Supervising Physician Co-Signing Physician Notes Discussed patient with JAQUELIN. Agree with plan. Not uncommon to develop hematoma following ESWL. As patient is hemodynamically stable, no current intervention necessary. Recommend bedrest, every 6 CBCs and clear liquid diet. Transfuse as necessary. If patient were to become unstable or continue to have drops in hemoglobin despite transfusion may necessitate transfer to tertiary care center where they can perform interventional radiology embolization. That being said, these typically will resolve with conservative measures. History of Present Illness History of Present Illness 35-year-old female who underwent Right ESWL this past Monday (09/17/21) and presented to the ED today with complaints of abdominal discomfort, headache, chills, and nausea. CT abdomen pelvis was obtained and remarkable for an acute subcapsular hematoma of the right kidney with hemorrhage extending into the right pericolic gutter and dependent pelvis. Past medical history includes kidney stones, pre-eclampsia, gestational diabetes. The patient is well-known to [facility] [place] urology for hx of nephrolithiasis. She underwent right ESWL on 09/17/21. Previously had left ESWL in April 2021 and Jun 2021 for stone treatment. On presentation - Afebrile, VSS. Wbc 11.62, Hgb 10.0, Cr 0.72. Urinalysis 2+blood, trace leukocytes, 5-10WBC, 5-10RBC, >30Epi, negative bacteria, negative nitrite. She has a urine culture (09/21) pending. The patient was hydrated with a liter of normal saline, and administered IV Zofran. She was given IV Tylenol for headache. CT abdomen pelvis: 1. Acute subcapsular hematoma of the right kidney measures up to 21.2 x 2.5 x 12.6 cm with hemorrhage extending into the right pericolic gutter and dependent pelvis. There is mass effect on the right kidney with delayed nephrogram. Correlate clinically to exclude page kidney. 2. Mild urothelial thickening of the right renal pelvis and proximal right ureter. Evaluation for renal calculi is limited secondary to contrast within the renal collecting systems. 3. No hydronephrosis. Renal Ultrasound: 1. Enlarged heterogeneous right kidney with perinephric fluid. This raises the possibility of perinephric or subcapsular hemorrhage. A few hypoechoic/cystic foci within the right kidney measure up to 1.6 cm are nonspecific but may reflect hematomas. A CT of the abdomen and pelvis is recommended for further evaluation. 2. No hydronephrosis. Pt examined at bedside in the ED. at bedside. Awake, resting in bed on arrival. No acute distress. She denies any significant abdominal, flank, or back pain at present. Reports feeling nauseous, no vomiting. Denies fever or chills. Voiding without difficulty. No hematuria or dysuria. Feels she is emptying her bladder well. Offered no additional complaints at time of exam. Allergies Allergy/AdvReac Type Severity Reaction Status Date / Time Sulfa (Sulfonamide Allergy Intermediate RASH - Verified 09/22/21 16:14 Antibiotics) "SULFA DRUGS" Home Medications Medication Instructions Recorded Confirmed Type tamsulosin 0.4 mg capsule 0.4 mg PO DAILY 09/22/21 09/22/21 History Patient History Medical History History of asthma NO CURRENT PROBLEM/NO INHALER History of COVID-15 FEBRUARY 2021 > congestion, loss of taste and smell Hx gestational diabetes Kidney stones PFO (patent foramen ovale) NO CURRENT CARDS Surgical History H/O lithotripsy History of section X 1 History of cystoscopy History of dilatation and curettage [place] teeth removed Family History Mother Diabetes Family history of diabetes mellitus Father Dyslipidemia Hypertension Other No family history of adverse response to anesthesia Denies family history of Ovarian cancer Breast cancer Colorectal cancer Social History Smoking Status: Never smoker Second Hand Exposure: No; Hx Alcohol Use: No Hx Substance Use: No Preferred Language: Mohawk Communication Ability: Effective 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 Beliefs That Will Affect Care: None marital status: marital status details: William Dhaliwal (38) [phone] Current Living Situation: Spouse Current Living Situation Comment: Home current occupational status: employed current occupation: [employer] Other Information That Helps Us Care for You: No Feels Safe at Home: Yes Assistive Devices: None Review of Systems Review of Systems: All systems reviewed & are unremarkable except as noted in HPI & below Physical Exam Constitutional: well developed and well nourished; no acute distress and not ill appearing Neck: normal visual inspection Respiratory: normal respiratory effort and able to speak in complete sentences; no labored breathing and no audible wheezes Gastrointestinal (Abdomen): Inspection/Auscultation: abdomen normal to inspection; abdomen not distended Percussion/Palpation: abdomen soft; abdomen nontender, no guarding and abdomen not rigid Musculoskeletal: Head/Neck/Chest: normocephalic Skin: No visible rashes or lesions to exposed skin areas Neurologic: moves all extremities and awake Psychiatric: Orientation: alert, oriented x 3 and cooperative Genitourinary: no CVA tenderness Small area of petechiae noted to right flank Results & Data ([facility]) Vital Signs (Past 12 Hours) Vital Signs Temp Pulse Pulse Resp BP BP Pulse Ox 09/22/21 09:34 77 20 133/84 98 09/22/21 07:38 36.4 C L 90 16 137/93 99 PG Care Time/CCT Total # of Minutes Spent Total Time Spent with Patient: Total time spent is greater than 50% in coordination of care (as documented) at patient's floor/unit and/or counseling patient: Coding Level of Care Code 07521 Inpt Consult Level 3 Diagnoses Renal hematoma, right S37.011A Encounter type: initial encounter Status post extracorporeal shock wave therapy Z98.890 (1) Renal hematoma, right Encounter type: initial encounter Qualified Code(s): S37.011A - Minor contusion of right kidney, initial encounter
--- NOTE | 2021-09-22 14:19 | History & Physical Report ---
Date of Service September 22, 2021 Assessment & Plan (1) Renal hematoma, right: (2) Renal hemorrhage, right: (3) Status post extracorporeal shock wave therapy: Plan: Patient is 35-year-old female with PMH kidney stones presented to ER with complaint of abdominal discomfort, nausea. Patient had ESWL on 09/17/2021. Patient states after procedure had some right flank discomfort and discomfort across lower abdomen which has continued along with intermittent headaches, chills, nausea. TMax: 99.3F. In ER patient afebrile, P: 90, R: 16, BP 137/93, 99% on room air. WBC: 11, Hgb: 10 (was 13.5 on 06/2021). UA: 2+blood, trace leuk esterase, >[address] abdomen pelvis: Acute subcapsular hematoma of right kidney measures up to 21.2 x 2.5 x 12.6 cm with hemorrhage extending into right paracolic gutter and dependent pelvis. There is mass-effect on right kidney with delayed nephrogram. Mild urothelial thickening of right renal pelvis and proximal right ureter Urine culture pending IVF Clear liquid diet H&H Q6H Urology consult - Dr Benton. Recommended patient did not require transfer and can be observed here, does not feel patient needs immediate intervention. Recommends H&H Q6H, if patient becomes febrile, hemodynamically unstable, or any acute changes in clinical status to contact urology to consider transfer to tertiary center for embolization CBC, BMP in am DVT Prophylaxis -SCDs Follows with Dr Ana Epps for routine care Pt was seen and care coordinated with Dr Katz. See addendum History of Present Illness Chief Complaint: Abdominal discomfort, nausea Primary Care Provider: Ana Courtney DO Patient is 35-year-old female with PMH kidney stones presented to ER with comp laint of abdominal discomfort, nausea. Patient had ESWL on 09/17/2021. Patient states after procedure had some right flank discomfort and discomfort across lower abdomen. She also reports she has been having intermittent headaches, chills. She has been taking her temperature and highest temp recorded was 99.3F. Has been using ibuprofen for discomfort with limited relief. Denies any other injury or trauma. Reports is urinating without difficulty and denies dysuria, hematuria, urinary frequency. Is not on antibiotics. Is taking tamsulosin daily. Denies diaphoresis, vomiting, diarrhea, dizziness, syncope, vision changes, neck pain, CP, SOB, orthopnea, palpitations, cough, sore throat, choking, otalgia, rhinorrhea, paresthesias, weakness, extremity weakness, extremity edema, rashes. In ER patient afebrile, P: 90, R: 16, BP 137/93, 99% on room air. WBC: 11, Hgb: 10 (was 13.5 on 06/2021) CT abdomen pelvis: Acute subcapsular hematoma of right kidney measures up to 21.2 x 2.5 x 12.6 cm with hemorrhage extending into right paracolic gutter and dependent pelvis. There is mass-effect on right kidney with delayed nephrogram. Mild urothelial thickening of right renal pelvis and proximal right ureter Patient discussed with [facility] urology who recommended observation of patient, H&H every 6 H. Did not feel patient needed transferred at this time. Allergies Allergy/AdvReac Type Severity Reaction Status Date / Time Sulfa (Sulfonamide Allergy Intermediate RASH - Verified 09/22/21 16:14 Antibiotics) "SULFA DRUGS" Home Medications Medication Instructions Recorded Confirmed Type tamsulosin 0.4 mg capsule 0.4 mg PO DAILY 09/22/21 09/22/21 History Past Med/Surg History Medical History History of asthma NO CURRENT PROBLEM/NO INHALER History of COVID-15 FEBRUARY 2021 > congestion, loss of taste and smell Hx gestational diabetes Kidney stones PFO (patent foramen ovale) NO CURRENT CARDS Surgical History H/O lithotripsy History of section X 1 History of cystoscopy History of dilatation and curettage [place] teeth removed Family History Mother Diabetes Family history of diabetes mellitus Father Dyslipidemia Hypertension Other No family history of adverse response to anesthesia Denies family history of Ovarian cancer Breast cancer Colorectal cancer Social History Smoking Status: Never smoker Second Hand Exposure: No; Hx Alcohol Use: No Hx Substance Use: No Preferred Language: Sinhala Communication Ability: Effective 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 Beliefs That Will Affect Care: None marital status: marital status details: William Dhaliwal (38) [phone] Current Living Situation: Spouse Current Living Situation Comment: Home current occupational status: employed current occupation: [employer] Other Information That Helps Us Care for You: No Feels Safe at Home: Yes Assistive Devices: None Review of Systems Review of Systems: All systems reviewed & are unremarkable except as noted in HPI & below Physical Exam Physical Exam: General: no acute distress, WDWN Head: normocephalic, atraumatic Eyes: PERRL, conjunctiva non-injected, anicteric ENT: normal inspection external ears, nose, mucous membranes moist Neck: supple, trachea midline Lungs: clear, no respiratory distress, no wheezing/rhonchi/rales CV: RRR, no pretibial edema Abd: normal BS, soft, non-tender, no CVA tenderness to palpation Ext: no cyanosis, no calf tenderness Neuro: A&O x 3, no focal deficits noted, normal affect Skin: warm, dry Results & Data Results & Data ([facility]) Vital Signs (Past 12 Hours) Vital Signs Temp Pulse Pulse Resp BP BP Pulse Ox 09/22/21 12:51 82 18 135/80 98 09/22/21 09:34 77 20 133/84 98 09/22/21 07:38 36.4 C L 90 16 137/93 99 Laboratory Results Short CBC 09/22/21 09/22/21 Range/Units 08:30 16:44 WBC 11.62 H (4.8-10.8) K/uL Hgb 10.0 L 9.9 L (12.0-16.0) g/dL Hct 29.7 L 29.0 L (37-47) % Plt Count 217 (130-400) K/uL BMP 09/22/21 08:30 Sodium 140 Potassium 3.6 Chloride 107 Carbon Dioxide 26 BUN 14 Creatinine 0.72 Glucose 96 Calcium 8.7 Liver Function 09/22/21 Range/Units 08:30 Total Bilirubin 0.8 (0.2-1) mg/dl AST 7 L (15-37) U/L ALT 17 (12-78) U/L Alkaline Phosphatase 59 (45-117) U/L Albumin 3.4 (3.4-5.0) gm/dl Urine 09/22/21 Range/Units 08:30 Urine Color Yellow Urine Appearance Clear (Clear) Urine pH 7.5 (4.5-7.5) Ur Specific [place] 1.016 (1.000-1.030) Urine Protein Trace H (Negative) Urine Glucose (UA) Negative (Negative) Diagnostic Findings Renal Ultrasound 09/22/21 08:02 RENAL ULTRASOUND CLINICAL HISTORY: Abdominal pain s/p ESWL COMPARISON STUDY: CT of the abdomen and pelvis June 03, 2021. KUB September 21, 2021. Renal ultrasound September 08, 2021. TECHNIQUE: Sonography of the kidneys and the urinary bladder was performed. FINDINGS: The right kidney is enlarged and heterogeneous in appearance. The right kidney measures 14.3 x 7.9 x 8.7 cm. The left kidney measures 12.2 x 7 x 7 .2 cm. There is right perinephric fluid. In addition, there are hypoechoic/cystic foci within the right kidney which measure up to 1.6 cm. There is no hydronephrosis. Both ureteral jets were identified. There is no left perinephric fluid. IMPRESSION: 1. Enlarged heterogeneous right kidney with perinephric fluid. This raises the possibility of perinephric or subcapsular hemorrhage. A few hypoechoic/cystic foci within the right kidney measure up to 1.6 cm are nonspecific but may reflect hematomas. A CT of the abdomen and pelvis is recommended for further evaluation. 2. No hydronephrosis. ACT 112: Negative or not required by law. Electronically signed by: Adalberto Esqueda M.D. 09/22/2021 9:39 AM Abdomen/Pelvis CT 09/22/21 10:[address] WITH IV CONTRAST CT DOSE: 1145.18 mGy.cm HISTORY: Acute right renal injury status post lithotripsy Eval R kidney injury TECHNIQUE: Multiaxial CT images of the abdomen and pelvis were performed following the IV administration of 94 cc of Optiray, A dose lowering technique was utilized adhering to the principles of ALARA. COMPARISON STUDY: Renal ultrasound 09/22/2021, KUB 09/21/2021, CT abdomen and pelvis 06/02/2021 FINDINGS: The imaged inferior cardiac chambers are unremarkable. Lung bases are generally clear. 3 mm fissural nodule of the right lung base on image 32 series 4 is unchanged and likely benign. No pneumatosis or pneumoperitoneum. Unremarkable spleen, pancreas, adrenal glands, gallbladder and liver. Patent hepatic and portal veins. The previously noted nonobstructing calculi of the kidneys seen on the noncontrast study is not definitively seen. Delayed phase of postcontrast imaging demonstrates normal appearance of the left kidney. No collecting system or ureteral filling defects identified. There is mild urothelial thickening of the right renal pelvis and proximal right ureter. There is heterogeneously decreased enhancement of the right kidney with a subcapsular hematoma measuring 21.2 x 2.5 x 12.6 cm. Hemorrhage extends outside the perinephric space into the right pericolic gutter and dependent pelvis. No evidence of active extravasation. Hematoma causes mass effect upon the right kidney. Mild urinary bladder distention. Unremarkable uterus and left adnexum. 3.3 cm right ovarian cyst. Aorta and IVC are unremarkable. No adenopathy. No bowel obstruction or bowel wall thickening. Mild colonic diverticulosis without acute diverticulitis. The visualized appendix is noninflamed. Unremarkable soft tissues. No acute fracture. IMPRESSION: 1. Acute subcapsular hematoma of the right kidney measures up to 21.2 x 2.5 x 12.6 cm with hemorrhage extending into the right pericolic gutter and dependent pelvis. There is mass effect on the right kidney with delayed nephrogram. Correlate clinically to exclude page kidney. 2. Mild urothelial thickening of the right renal pelvis and proximal right ureter. Evaluation for renal calculi is limited secondary to contrast within the renal collecting systems. 3. No hydronephrosis. 4. Additional findings as above. ACT 112: Negative or not required by law. The above report was generated using voice recognition software. It may contain grammatical, syntax or spelling errors. Electronically signed by: Gino Wilkerson M.D. 09/22/2021 11:19 AM Supervising Physician Co-Signing Physician Notes 35-year-old female with PMH of recurrent kidney stones [11 times] status post multiple lithotripsy bilaterally and patent foramen ovale who had recent ESWL on 09/17/2021 presented to our ED 09/22 with some right flank discomfort and belly discomfort associated with nausea, headache, sickness/soreness at stomach and not feeling well. Per patient she had no fever or any pain/burning while passing urine in the last week leading up to now, no acute changes in her bowel or bladder habit. Admitting CTAP revealed large acute subcapsular hematoma likely from recent ESWL. Urology has been consulted. Conservative management for now. H&H every 6-8 hours depending on clinical status. Monitor clinical status for acute blood loss. Per urology, if she starts losing more blood, likely need to transfer. For now conservative management and urology does not feel the need to transfer. No smoking, drinking alcohol, recreational drug. Full code. No history of cancer clot. Symptomatic management for nausea, vomiting, sicknesses stomach and headache with Tums, famotidine, Zofran, Tylenol. Conservative management for right subcapsular hematoma, might need follow-up imaging depending on the clinical status. Await further urology recommendations Upon examination GENERAL: Alert and oriented x3. NAD, on RA. HEENT: No pallor, no icterus. Pupils equal, round and reactive to light. Oral mucosa moist. NECK: No JVD, no neck masses. HEART: S1 and S2 heard. Regular rate and rhythm. Systolic murmur over pulmonic area, no gallop. RESPIRATORY SYSTEM: Normal AP diameter. No accessory muscle use. No wheezing, no crackles. ABDOMEN: Soft, bowel sounds present, nontender but discomfort over Rt iliac, no distention. CENTRAL NERVOUS SYSTEM: Alert and oriented x3. No facial droop. Speech is clear. Obeys simple commands. Moves extremities. EXTREMITIES: No edema, no erythema seen. I have seen and examined the patient and have discussed the case with the provider above. I agree with the assessment and plan as stated. (1) Renal hematoma, right Encounter type: initial encounter Qualified Code(s): S37.011A - Minor contusion of right kidney, initial encounter
[2021-09-22] MEDS: ACETAMINOPHEN 500 MG TAB PO SCH ×2 (14:27→22:04)
[2021-09-22] MEDS ORDERED: SODIUM CHLORIDE 0.9% 250 ML IV PRN (16:04)
[2021-09-22] MEDS ORDERED: oxyCODONE HCL IR 5 MG TAB (IMMEDIATE RELEASE) PO PRN ×2 (16:04→21:09)
[2021-09-22] MEDS ORDERED: POLYETHYLENE (MIRALAX) 17 GM PACK PO PRN (16:04)
[2021-09-22] MEDS ORDERED: ONDANSETRON INJ 2 MG/ML 2 ML VIAL ONE (16:12)
[2021-09-22] MEDS: ONDANSETRON INJ 2 MG/ML 2 ML VIAL IV PRN ×2 (16:20→22:09)
[2021-09-22 17:16] LABS: Hemoglobin 9.9 g/dL (12.0-16.0)
[2021-09-22] MEDS: SODIUM CHLORIDE 0.9% 1000ML 1,000 ML IV SCH (18:12)
[2021-09-22] MEDS ORDERED: traMADol HCL 50 MG TABLET PO PRN (20:21)
[2021-09-22 23:04] LABS: Hematocrit (blood only) 29.8 % (37-47)
[2021-09-23] MEDS: SODIUM CHLORIDE 0.9% 1000ML 1,000 ML IV SCH (00:59)
[2021-09-23 04:22] LABS: Basophils # (auto) 0.01 K/uL (0-0.2); Basophils % (auto) 0.1 %; Eosinophils # (auto) 0.12 K/uL (0-0.5); Eosinophils % (auto) 1.1 %; Hematocrit (blood only) 27.8 % (37-47); Hemoglobin 9.4 g/dL (12.0-16.0); Immature Granulocytes # (auto) 0.03 K/uL (0.00-0.02); Immature Granulocytes % (auto) 0.3 %; Lymphocytes # (auto) 2.18 K/uL (1.2-3.4); Mean Corpuscular Hemoglobin 30.3 pg (25-34); Mean Corpuscular Hgb Conc 33.8 g/dL (32-36); Mean Corpuscular Volume 89.7 fL (80-100); Mean Platelet Volume 9.9 fL (7.4-10.4); Monocytes # (auto) 1.19 K/uL (0.11-0.59); Monocytes % (auto) 10.9 %; Neutrophils # (auto) 7.37 K/uL (1.4-6.5); Neutrophils % (auto) 67.6 %; Platelet Count 186 K/uL (130-400); RDW Coefficient of Variation 12.2 % (11.5-14.5); RDW Standard Deviation 39.4 fL (36.4-46.3)
[2021-09-23 04:33] LABS: Partial Thromboplastin Time 26.5 Seconds (21.0-31.0); Prothrombin Time 10.2 Seconds (9.0-12.0)
[2021-09-23 04:39] LABS: BUN Creatinine Ratio 15.4 (10-20); Calcium 8.2 mg/dl (8.5-10.1); Creatinine Clr Calc Pharmacy 120.8 ml/min; Est GFR (African American) 132.1 ml/min; Potassium 3.9 mmol/L (3.5-5.1)
[2021-09-23] MEDS: ACETAMINOPHEN 500 MG TAB PO SCH ×2 (05:50→15:46)
[2021-09-23] MEDS ORDERED: TAMSULOSIN HCL 0.4 MG CAP PO SCH (09:00)
--- NOTE | 2021-09-23 09:35 | Urology Progress Note ---
Date of Service September 23, 2021 Assessment & Plan (1) Renal hematoma, right: Plan: Known right renal hematoma s/p ESWL. Since she has been stable for the past 24 hours I think it is reasonable to give her a diet back as tolerated and let her ambulate. With the absence of worsening pain or symptoms, I suspect the bleed is stable and has likely stopped. There was no active extravasation seen on the CT scan. There will be some equilibration of her Hb after the bleed, and likely some hemodilution from any IV fluids she gets, but overall her hemoglobin is not clearly trending down. She remains hemodynamically stable. We discussed that pararenal hematomas such as this will generally get reabsorbed by the body over time. I would not favor any active intervention for now, rather would continue checking CBC every 6 hours. (2) Gross hematuria: Plan: Etiology of hematuria is somewhat unclear. I would not expect the perirenal hematoma to make its way into the collecting system to drain, but could not exclude this as a possibility. She may have developed some clots within the collecting system at the time of ESWL, but I would have expected her urine to be bloody shortly after the surgery if this were the case. As long as she is able to void, we can continue to monitor the hematuria, as well as monitoring CBC. I expect that the urine will clear up with time. Plan: We discussed that if her hemoglobin remains stable, she is not having any new symptoms and is feeling well overall, and ideally if her urine starts to clear up, we could potentially talk about discharge to home this afternoon. If she becomes unstable or acutely worsens, she would require transfer to a facility that could perform an IR embolization of her kidney, however this is appearing less and less likely to be required. Admission and Anticipated Discharge Date Admission Date: September 22, 2021 Subjective Ms. Dhaliwal is feeling pretty well this morning, s/p ESWL on 09/17/21, despite developing perirenal hematoma. She denies any worsening pain. She still has a sense of abdominal fullness, but has been tolerating liquids without nausea or vomiting. She denies any lightheadedness and has been up moving around a little bit. She reports having some blood in the urine, but no clots. She is emptying her bladder well. Review of Systems Constitutional: No lightheadedness, no fevers or chills Gastrointestinal: Abdominal fullness, no nausea or vomiting. Genitourinary: New hematuria Physical Exam Physical Exam: Resting comfortably in bed, NAD Genitourinary: Red urine in the hat, no clots visible. Results & Data ([facility]) Vital Signs (Past 12 Hours) Vital Signs Temp Pulse Pulse Resp BP Pulse Ox 09/23/21 07:11 36.6 C 74 18 119/81 97 09/23/21 03:15 36.6 C 75 17 115/76 98 09/23/21 00:32 76 09/22/21 23:47 78 09/22/21 22:00 37.4 C 70 15 138/89 98 Laboratory Results Hemoglobin trend over last 24 hrs: 10.0 --> 9.9 --> 10.0 --> 9.4 - overall appears stable PG Care Time/CCT Total # of Minutes Spent Total Time Spent with Patient: Total time spent is greater than 50% in coordination of care (as documented) at patient's floor/unit and/or counseling patient: Coding Level of Care Code 04249 Subseq Hosp Care Lvl 2 Diagnoses Renal hematoma, right S37.011A Encounter type: initial encounter Gross hematuria R31.0 (1) Renal hematoma, right Encounter type: initial encounter Qualified Code(s): S37.011A - Minor contusion of right kidney, initial encounter
--- NOTE | 2021-09-23 10:11 | Hospitalist Progress Note ---
Date of Service September 23, 2021 Assessment & Plan (1) Renal hematoma, right: (2) Renal hemorrhage, right: (3) Status post extracorporeal shock wave therapy: Plan: Pt is 35 yo female with PMH kidney stones presented to ER with complaint of abdominal discomfort, nausea. Patient had ESWL on 09/17/2021. Patient states after procedure had some right flank discomfort and discomfort across lower abdomen which has continued along with intermittent headaches, chi lls, nausea. TMax: 99.3F. In ER patient afebrile, P: 90, R: 16, BP 137/93, 99% on room air. WBC: 11, Hgb: 10 (was 13.5 on 06/2021). UA: 2+blood, trace leuk esterase, >[address] abdomen pelvis: Acute subcapsular hematoma of right kidney measures up to 21.2 x 2.5 x 12.6 cm with hemorrhage extending into right paracolic gutter and dependent pelvis. There is mass-effect on right kidney with delayed nephrogram. Mild urothelial thickening of right renal pelvis and proximal right ureter Urine culture pending IVF Clear liquid diet H&H Q6H Hemoglobin fairly stable >9 Urology consulted on admission - Dr Benton. Recommended patient did not require transfer and can be observed here, does not feel patient needs immediate intervention. Recommends H&H Q6H, if patient becomes febrile, hemodynamically unstable, or any acute changes in clinical status to contact urology to consider transfer to tertiary center for embolization Seen by Dr. Zarate from urology today, patient's doing better overall, had some hematuria overnight, however seems to be better today, does report some small clots with urination. Per urology okay for discharge. DVT Prophylaxis -SCDs Follows with Dr Ana Epps for routine care Admission and Anticipated Discharge Date Admission Date: September 22, 2021 Subjective Patient seen in follow-up of perirenal hematoma, hematuria She is s/p ESWL on 09/17/21 w/ urology She developed hematuria last evening, and it got better today however patient also noticed some small clots with urination She was seen by urology, and given that she is doing better, hemodynamically stable and hemoglobin also seems to be stable, patient is okay for discharge She denies any worsening pain, denies any chest pain shortness of breath, fevers or chills, or any worsening abdominal pain Overall she says that she feels comfortable Previously she had nausea, that seems to be resolved Review of Systems Review of Systems: All systems reviewed & are unremarkable except as noted in Subjective Physical Exam Physical Exam: General: young obese F in NAD Head: normocephalic, atraumatic Eyes: PERRL, EOMI, conjunctiva non-injected, anicteric ENT: normal inspection external ears, nose, mucous membranes moist Neck: supple, trachea midline Lungs: clear, no respiratory distress, no wheezing/rhonchi/rales CV: RRR, no pretibial edema Abd: normal BS, soft, non-tender, no CVA tenderness to palpation Ext: no cyanosis, no calf tenderness, moves extremities Neuro: A&O x 3, no focal deficits noted, normal affect Skin: warm, dry Results & Data Results & Data ([facility]) Vital Signs (Past 12 Hours) Vital Signs Temp Pulse Pulse Resp BP Pulse Ox 09/23/21 07:11 36.6 C 74 18 119/81 97 09/23/21 03:15 36.6 C 75 17 115/76 98 09/23/21 00:32 76 09/22/21 23:47 78 Laboratory Results 09/23/21 09/23/21 09/23/21 Range/Units 04:08 04:08 04:08 WBC 10.90 H (4.8-10.8) K/uL RBC 3.10 L (4.2-5.4) M/uL Hgb 9.4 L (12.0-16.0) g/dL Hct 27.8 L (37-47) % MCV 89.7 (80-100) fL MCH 30.3 (25-34) pg MCHC 33.8 (32-36) g/dL RDW Std Deviation 39.4 (36.4-46.3) fL RDW Coeff of Alejandro 12.2 (11.5-14.5) % Plt Count 186 (130-400) K/uL MPV 9.9 (7.4-10.4) fL Immature Gran % (Auto) 0.3 % Neut % (Auto) 67.6 % Lymph % (Auto) 20.0 % Mccormick % (Auto) 10.9 % Eos % (Auto) 1.1 % Baso % (Auto) 0.1 % Neut # (Auto) 7.37 H (1.4-6.5) K/uL Lymph # (Auto) 2.18 (1.2-3.4) K/uL Mccormick # (Auto) 1.19 H (0.11-0.59) K/uL Eos # (Auto) 0.12 (0-0.5) K/uL Baso # (Auto) 0.01 (0-0.2) K/uL Immature Gran # (Auto) 0.03 H (0.00-0.02) K/uL PT 10.2 (9.0-12.0) Seconds INR 1.0 (0.9-1.1) APTT 26.5 (21.0-31.0) Seconds PTT Ratio 1.0 Sodium 139 (136-145) mmol/L Potassium 3.9 (3.5-5.1) mmol/L Chloride 108 H (98-107) mmol/L Carbon Dioxide 28 (21-32) mmol/L Anion Gap 3.0 (3-11) BUN 10 (7-18) mg/dl Creatinine 0.64 (0.6-1.2) mg/dl Est Cr Clr Drug Dosing 120.8 ml/min Est GFR ( Amer) 132.1 ml/min Est GFR (Non-Af Amer) 114.0 ml/min BUN/Creatinine Ratio 15.4 (10-20) Glucose 100 H (70-99) mg/dl Calcium 8.2 L (8.5-10.1) mg/dl SARS-CoV-2, RNA, NAAT (NEGATIVE) Blood Type Antibody Screen Crossmatch 09/22/21 09/22/21 09/22/21 Range/Units 22:31 16:44 16:44 WBC (4.8-10.8) K/uL RBC (4.2-5.4) M/uL Hgb 10.0 L 9.9 L (12.0-16.0) g/dL Hct 29.8 L 29.0 L (37-47) % MCV (80-100) fL MCH (25-34) pg MCHC (32-36) g/dL RDW Std Deviation (36.4-46.3) fL RDW Coeff of Alejandro (11.5-14.5) % Plt Count (130-400) K/uL MPV (7.4-10.4) fL Immature Gran % (Auto) % Neut % (Auto) % Lymph % (Auto) % Mccormick % (Auto) % Eos % (Auto) % Baso % (Auto) % Neut # (Auto) (1.4-6.5) K/uL Lymph # (Auto) (1.2-3.4) K/uL Mccormick # (Auto) (0.11-0.59) K/uL Eos # (Auto) (0-0.5) K/uL Baso # (Auto) (0-0.2) K/uL Immature Gran # (Auto) (0.00-0.02) K/uL PT (9.0-12.0) Seconds INR (0.9-1.1) APTT (21.0-31.0) Seconds PTT Ratio Sodium (136-145) mmol/L Potassium (3.5-5.1) mmol/L Chloride (98-107) mmol/L Carbon Dioxide (21-32) mmol/L Anion Gap (3-11) BUN (7-18) mg/dl Creatinine (0.6-1.2) mg/dl Est Cr Clr Drug Dosing ml/min Est GFR ( Amer) ml/min Est GFR (Non-Af Amer) ml/min BUN/Creatinine Ratio (10-20) Glucose (70-99) mg/dl Calcium (8.5-10.1) mg/dl SARS-CoV-2, RNA, NAAT (NEGATIVE) Blood Type O Positive Antibody Screen NEGATIVE Crossmatch See Detail 09/22/21 Range/Units 13:11 WBC (4.8-10.8) K/uL RBC (4.2-5.4) M/uL Hgb (12.0-16.0) g/dL Hct (37-47) % MCV (80-100) fL MCH (25-34) pg MCHC (32-36) g/dL RDW Std Deviation (36.4-46.3) fL RDW Coeff of Alejandro (11.5-14.5) % Plt Count (130-400) K/uL MPV (7.4-10.4) fL Immature Gran % (Auto) % Neut % (Auto) % Lymph % (Auto) % Mccormick % (Auto) % Eos % (Auto) % Baso % (Auto) % Neut # (Auto) (1.4-6.5) K/uL Lymph # (Auto) (1.2-3.4) K/uL Mccormick # (Auto) (0.11-0.59) K/uL Eos # (Auto) (0-0.5) K/uL Baso # (Auto) (0-0.2) K/uL Immature Gran # (Auto) (0.00-0.02) K/uL PT (9.0-12.0) Seconds INR (0.9-1.1) APTT (21.0-31.0) Seconds PTT Ratio Sodium (136-145) mmol/L Potassium (3.5-5.1) mmol/L Chloride (98-107) mmol/L Carbon Dioxide (21-32) mmol/L Anion Gap (3-11) BUN (7-18) mg/dl Creatinine (0.6-1.2) mg/dl Est Cr Clr Drug Dosing ml/min Est GFR ( Amer) ml/min Est GFR (Non-Af Amer) ml/min BUN/Creatinine Ratio (10-20) Glucose (70-99) mg/dl Calcium (8.5-10.1) mg/dl SARS-CoV-2, RNA, NAAT NEGATIVE (NEGATIVE) Blood Type Antibody Screen Crossmatch Medications Administered Current Inpatient Medications Acetaminophen (Acetaminophen 500 Mg Tab) 1,000 mg PO Q8H YAHIR Stop: 09/24/21 13:59 Last Admin: 09/23/21 05:50 Dose: 1,000 mg Documented by: Sodium Chloride (Nss) 250 mls @ 15 mls/hr IV .[id number] PRN PRN Reason: For Transfusion Stop: 10/22/21 16:03 Ondansetron HCl (Ondansetron Inj 2 Mg/Ml 2 Ml Vial) 4 mg IV Q6H PRN PRN Reason: Nausea Stop: 10/22/21 16:03 Last Admin: 09/22/21 22:09 Dose: 4 mg Documented by: Oxycodone HCl (Oxycodone Hcl Ir 5 Mg Tab (Immediate Release)) 5 mg PO Q6H PRN PRN Reason: Severe Pain Stop: 10/06/21 16:03 Polyethylene Glycol (Polyethylene (Miralax) 17 Gm Pack) 17 gm PO DAILY PRN PRN Reason: Constipation Stop: 10/22/21 16:03 Tamsulosin HCl (Tamsulosin Hcl 0.4 Mg Cap) 0.4 mg PO DAILY YAHIR Stop: 10/23/21 08:59 Last Admin: 09/23/21 07:54 Dose: 0.4 mg Documented by: Tramadol HCl (Tramadol Hcl 50 Mg Tablet) 50 mg PO Q4H PRN PRN Reason: Moderate Pain Stop: 10/22/21 20:20 Last Admin: 09/22/21 20:57 Dose: 50 mg Documented by: (1) Renal hematoma, right Encounter type: initial encounter Qualified Code(s): S37.011A - Minor contusion of right kidney, initial encounter
[2021-09-23 10:24] LABS: Hematocrit (blood only) 27.2 % (37-47); Hemoglobin 9.2 g/dL (12.0-16.0)
--- NOTE | 2021-09-23 15:47 | Discharge Summary ---
Date of Service September 23, 2021 Admission HPI Per Admitting Provider Patient is 35-year-old female with PMH kidney stones presented to ER with complaint of abdominal discomfort, nausea. Patient had ESWL on 09/17/2021. Patient states after procedure had some right flank discomfort and discomfort across lower abdomen. She also reports she has been having intermittent headaches, chills. She has been taking her temperature and highest temp recorded was 99.3F. Has been using ibuprofen for discomfort with limited relief. Denies any other injury or trauma. Reports is urinating without difficulty and denies dysuria, hematuria, urinary frequency. Is not on antibiotics. Is taking tamsulosin daily. Denies diaphoresis, vomiting, diarrhea, dizziness, syncope, vision changes, neck pain, CP, SOB, orthopnea, palpitations, cough, sore throat, choking, otalgia, rhinorrhea, paresthesias, weakness, extremity weakness, extremity edema, rashes. In ER patient afebrile, P: 90, R: 16, BP 137/93, 99% on room air. WBC: 11, Hgb: 10 (was 13.5 on 06/2021) CT abdomen pelvis: Acute subcapsular hematoma of right kidney measures up to 21.2 x 2.5 x 12.6 cm with hemorrhage extending into right paracolic gutter and dependent pelvis. There is mass-effect on right kidney with delayed nephrogram. Mild urothelial thickening of right renal pelvis and proximal right ureter Patient discussed with [facility] urology who recommended observation of patient, H&H every 6 H. Did not feel patient needed transferred at this time. Admission Exam Per Admitting Provider General: no acute distress, WDWN Head: normocephalic, atraumatic Eyes: PERRL, conjunctiva non-injected, anicteric ENT: normal inspection external ears, nose, mucous membranes moist Neck: supple, trachea midline Lungs: clear, no respiratory distress, no wheezing/rhonchi/rales CV: RRR, no pretibial edema Abd: normal BS, soft, non-tender, no CVA tenderness to palpation Ext: no cyanosis, no calf tenderness Neuro: A&O x 3, no focal deficits noted, normal affect Skin: warm, dry Principal Diagnosis Perineal hematoma Hematuria Discharge Exam General: young obese F in NAD Head: normocephalic, atraumatic Eyes: PERRL, EOMI, conjunctiva non-injected, anicteric ENT: normal inspection external ears, nose, mucous membranes moist Neck: supple, trachea midline Lungs: clear, no respiratory distress, no wheezing/rhonchi/rales CV: RRR, no pretibial edema Abd: normal BS, soft, non-tender, no CVA tenderness to palpation Ext: no cyanosis, no calf tenderness, moves extremities Neuro: A&O x 3, no focal deficits noted, normal affect Skin: warm, dry Discharge Data Allergies Allergy/AdvReac Type Severity Reaction Status Date / Time Sulfa (Sulfonamide Allergy Intermediate RASH - Verified 09/22/21 16:14 Antibiotics) "SULFA DRUGS" Consultations 09/22/21 12:43 ED Decision to Admit Stat 09/22/21 21:09 Consult Urology Routine Ordered Studies 09/22/21 08:02 US renal/blad retro comp Stat IMPRESSION: 1. Enlarged heterogeneous right kidney with perinephric fluid. This raises the possibility of perinephric or subcapsular hemorrhage. A few hypoechoic/cystic foci within the right kidney measure up to 1.6 cm are nonspecific but may reflect hematomas. A CT of the abdomen and pelvis is recommended for further evaluation. 2. No hydronephrosis. 09/22/21 10:06 CT abd pelvis IV con only Stat IMPRESSION: 1. Acute subcapsular hematoma of the right kidney measures up to 21.2 x 2.5 x 12.6 cm with hemorrhage extending into the right pericolic gutter and dependent pelvis. There is mass effect on the right kidney with delayed nephrogram. Correlate clinically to exclude page kidney. 2. Mild urothelial thickening of the right renal pelvis and proximal right ureter. Evaluation for renal calculi is limited secondary to contrast within the renal collecting systems. 3. No hydronephrosis. 4. Additional findings as above. Hospital Course (1) Renal hematoma, right: (2) Renal hemorrhage, right: (3) Status post extracorporeal shock wave therapy: Pt is 35 yo female with PMH kidney stones presented to ER with complaint of abdominal discomfort, nausea. Patient had ESWL on 09/17/2021. Patient states after procedure had some right flank discomfort and discomfort across lower abdomen which has continued along with intermittent headaches, chills, nausea. TMax: 99.3F. In ER patient afebrile, P: 90, R: 16, BP 137/93, 99% on room air. WBC: 11, Hgb: 10 (was 13.5 on 06/2021). UA: 2+blood, trace leuk esterase, >[address] abdomen pelvis: Acute subcapsular hematoma of right kidney measures up to 21.2 x 2.5 x 12.6 cm with hemorrhage extending into right paracolic gutter and dependent pelvis. There is mass-effect on right kidney with delayed nephrogram. Mild urothelial thickening of right renal pelvis and proximal right ureter Urine culture pending IVF Clear liquid diet H&H Q6H Hemoglobin fairly stable >9 Urology consulted on admission - Dr Benton. Recommended patient did not require transfer and can be observed here, does not feel patient needs immediate intervention. Recommends H&H Q6H, if patient becomes febrile, hemodynamically unstable, or any acute changes in clinical status to contact urology to consider transfer to tertiary center for embolization Seen by Dr. Zarate from urology today, patient's doing better overall, had some hematuria overnight, however seems to be better today, does report some small clots with urination. Per urology okay for discharge. DVT Prophylaxis -SCDs Follows with Dr Ana Epps for routine care Total Time Total Time Spent Total Time Spent (In Minutes): 35 Discharge Plan Discharge Items Patient Disposition: Home - Self-Care Reason For Visit: KIDNEY HEMMORAGE Discharge Diagnosis: Perineal hematoma Hematuria Activity: Per Instructions section Non-emergency contact: Primary Care Provider and Urologist Call non-emergency contact if: you have any medication questions and your symptoms worsen Follow-up/Referrals: Ana Courtney DO [Primary Care Provider] - Diet: Regular Addtl Attending Provider Instructions: Monitor your symptoms, and if you have any further questions, please call urology office, phone number below. You should also follow-up with your primary care doctor within 1 to 2 weeks. There were no medication changes made at this time. Addtl [employer] Provider Instructions: When to call [facility] Urology at [phone]: Fever of 101F or higher Heavy bleeding Pain that is not controlled with medicine Uncontrolled vomiting Problems urinating or inability to urinate Please plan to keep all followup appointments. If you do not have an appointment scheduled yet, please call the office on 09/27 or 09/28 to make an appointment. Pending Studies at Discharge: Yes Studies:: Final urine culture Final blood cultures Stand-Alone Forms: My [facility] [place], Smoking Cessation Medications and DC Order Prescriptions: Continued tamsulosin 0.4 mg capsule 0.4 mg PO DAILY RF: 0 Discharge Orders: Discharge Order (Routine); Ordered 09/23/21 Ordered By: Asim Unger Admission Data Admit Date/Time: 09/22/21 13:01 Attending Provider: Asim Unger Admit Provider: Cathy Katz Primary Care Provider: Ana Courtney Other Providers: Cathy Katz ; Patrick Benton
[2021-09-23 16:21] LABS: Hematocrit (blood only) 31.9 % (37-47); Hemoglobin 10.9 g/dL (12.0-16.0)
== END 2021-09-23 17:19 | disposition home or self-care (01) | DRG 920 ==
LOC: ED 07:34 → SUATTDRO 13:01 → INTOOBSV 13:01 → EDINP 13:01 → 2S 15:28
DX: Q21.1 Atrial septal defect; Z88.2 Allergy status to sulfonamides; N28.89 Other specified disorders of kidney and ureter; Z83.3 Family history of diabetes mellitus; Z86.16 Personal history of COVID-19; Z87.442 Personal history of urinary calculi; N99.840 Postprocedural hematoma of a genitourinary system organ or structure following a genitourinary system procedure; S37.011A Minor contusion of right kidney, initial encounter; Y92.530 Ambulatory surgery center as the place of occurrence of the external cause